=== PATIENT | male | born 1965 | race Caucasian/White ===

== ENCOUNTER 2016-09-28 16:31 | Inpatient (IN) | payer OTHER ==
[~2016-09-28] VITALS: Ht 188 cm; Wt 99.8 kg
[~2016-09-28 16:31] MED LIST: GELATIN 12 MM/7 MM FOAM I-ARTERIAL ONE; LACTATED RINGER'S 1000 ML INJ 1,000 ML IV ONE; NORMOSOL R INJ 2,000 ML IV ONE; PHENYLEPHRINE HCL 10 MG/ML VIAL IV ONE; PROPOFOL 200 MG/20 ML AMP IV ONE; SODIUM BICARBONATE 8.4% INJ 50 MEQ/50 ML SYR IV ONE; Z.0.NO CURRENT MEDS
[2016-09-28] MEDS ORDERED: GENTAMICIN 80 MG ONE (16:35)
[2016-09-28 16:39] VITALS: O2SAT 95
[2016-09-28] MEDS ORDERED: MORPHINE SULFATE 8 MG/ML INJ ONE (16:44)
[2016-09-28 16:57] LABS: BASOPHIL % 0.4 % (0.0-2.0); EOSINOPHIL # 0.3 TH/MM3 (0-0.4); EOSINOPHIL % 3.1 % (0.0-4.0); HEMATOCRIT 49.5 % (39.0-51.0); HEMO FLAGS DIFF FINAL; LYMPH % 43.2 % (9.0-44.0); LYMPHOCYTE # 4.4 TH/MM3 (1.0-4.8); MEAN CELL VOLUME 84.4 FL (80.0-100.0); MEAN CORPUSCULAR HEMOGLOBIN 28.2 PG (27.0-34.0); MEAN CORPUSCULAR HGB CONC 33.4 % (32.0-36.0); MONO % 4.6 % (0.0-8.0); NEUT % 48.7 % (16.0-70.0); PLATELET COUNT 221 TH/MM3 (150-450); RED BLOOD COUNT 5.87 MIL/MM3 (4.50-5.90); RED CELL DISTRIBUTION WIDTH 13.8 % (11.6-17.2); WHITE BLOOD COUNT 10.2 TH/MM3 (4.0-11.0)
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
[2016-09-28 17:11] LABS: APTT (PATIENT) 21.8 SEC (24.3-30.1); I-STAT POTASSIUM 3.1 MMOL/L (3.5-4.9); PROTHROMBIN TIME - PATIENT 10.6 SEC (9.8-11.6)
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
[2016-09-28] MEDS ORDERED: SODIUM CHLOR 0.9% 1000 ML INJ 1,000 ML IV SCH (17:17)
[2016-09-28 17:20] VITALS: O2SAT 99
[2016-09-28] MEDS ORDERED: IOHEXOL 350 MG/ML 10 ML VIAL (for RAD DIAG) IVCONTRAST ONE (17:22)
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
[2016-09-28] MEDS ORDERED: CHLORHEXIDINE GLUCONATE 2 % 1 PACK (2 CLOTHS) TOP PRN (17:30)
[2016-09-28] MEDS ORDERED: MISCELLANEOUS NURSING INFORMATION XX SCH (17:30)
[2016-09-28] MEDS ORDERED: MAGNESIUM HYDROXIDE SUSP 30 ML CUP PO PRN (17:30)
[2016-09-28] MEDS ORDERED: ENALAPRILAT 1.25 MG/ML VIAL IV PRN (17:30)
[2016-09-28] MEDS ORDERED: SODIUM CHLORIDE 0.9% FLUSH 10 ML FLUSH IV FLUSH PRN (17:30)
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
[2016-09-28] MEDS ORDERED: fentaNYL CITRATE 250 MCG/5 ML AMP ONE ×2 (17:55→22:40)
[2016-09-28] MEDS ORDERED: MIDAZOLAM HCL 2 MG/2 ML VIAL ONE ×3 (17:55→22:41)
[2016-09-28] MEDS ORDERED: GENTAMICIN 80 MG PREMIX 100 ML ONE (18:44)
[2016-09-28] MEDS ORDERED: GENTAMICIN SULFATE 80 MG/2 ML VIAL ONE (18:51)
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
[2016-09-28] MEDS ORDERED: ceFAZolin 2 GM PREMIX 50 ML ONE (19:00)
[2016-09-28] MEDS ORDERED: IODIXANOL 320 MG/ML 50 ML VIAL (for RAD SPEC) I-ARTERIAL ONE (19:03)
--- NOTE | 2016-09-28 19:03 | PD.RAD ---
Post Procedure Progress Note Pre Procedure Diagnosis: (1) Pelvic fracture Post Procedure Diagnosis: (1) Pelvic fracture Procedure Date: Sep 28, 2016 Supervising Radiologist: Sami Xavier JR Proceduralist/Assist: Orquidea Alvarado RT(R), RT Td(R)() Anesthesia: Conscious Sedation Plan of Activity Patient to Unit: Other Patient Condition: Good See PACS Report for procedural detail/treatment Vascular-Arterial Procedure Procedure 1 Procedure Site: Right Leg, Abdominal Procedure(s): Angiogram, Embolization Access Access Site(s): Right Femoral Artery Closure Site(s): Right vascular closure device Findings: Pelvic angio shows active bleeding at pubic symphysis via left obturator artery branch. Successful pelvic embolization Right lower extremity angio performed due to fractures. Patent flow to foot. 3 vessel runoff. Plan to OR Jr. Duc,Sami Olson MD Sep 28, 2016 19:03
[2016-09-28 19:58] LABS: BLOOD GAS BASE EXCESS -8.1 mmol/L (-2-2); BLOOD GAS CARBOXYHEMOGLOBIN 1.1 % (0-4); BLOOD GAS HCO3 18 mmol/L (22-26); BLOOD GAS METHEMOGLOBIN 1.2 % (0-2); BLOOD GAS O2 HGB SATURATION 97 % (90-100); BLOOD GAS OXYGEN CONTENT 17.3 Vol % (12.0-20.0); BLOOD GAS PCO2 42 mmHg (38-42); BLOOD GAS PO2 205 mmHg (61-120); BLOOD GAS TOTAL HGB 12.4 G/DL (12.0-16.0); CRITICAL VALUE YES; DRAW SITE O.R. DRAW; OXYGEN DEVICE VENTILATOR; TEMP CORR TO 98.6; VENT SETTINGS O.R.
[2016-09-28 19:59] LABS: STAT YES
[2016-09-28] MEDS ORDERED: BACITRACIN TOP OINT 15 GM TUBE ONE (20:07)
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
--- NOTE | 2016-09-28 20:58 | RADRPT ---
EXAM DATE/TIME: 09/28/2016 19:54 [facility] COMPARISON: CT ABDOMEN & PELVIS W CONTRAST, September 28, 2016, 16:56. PELVIS AP ONLY, September 28, 2016, 16:24. INDICATIONS : Ex-fix pelvis. MEDICAL HISTORY : Unobtainable. SURGICAL HISTORY : Unobtainable. ENCOUNTER: Subsequent ACUITY: 1 day PAIN SCORE: Non-responsive. LOCATION: pelvis FINDINGS: Fluoroscopic images obtained in the operating room during external fixator placement documents decrea sed widening of the pubic symphysis and decreased widening of the right sacroiliac joint. CONCLUSION: There is decreased widening of the pubic symphysis following external fixator placement. Naren Bran MD on September 28, 2016 at 20:54 Board Certified Radiologist. This report was verified electronically.
--- NOTE | 2016-09-28 20:59 | RADRPT ---
EXAM DATE/TIME: 09/28/2016 19:54 [facility] COMPARISON: TIBIA/FIBULA RIGHT ( 1 VW), September 28, 2016, 16:24. INDICATIONS : Ex-fix right tib/fib. MEDICAL HISTORY : Unobtainable. SURGICAL HISTORY : Unobtainable. ENCOUNTER: Subsequent ACUITY: 1 day PAIN SCORE: Non-responsive. LOCATION: Right tibia/fibula. FINDINGS: 3 spot fluoroscopic images obtained in the operating room during a procedure documents external fixat or device in the distal tibia. The extremely comminuted proximal and mid tibia fracture remains visua lized. There is also a proximal fibular fracture. CONCLUSION: Spot fluoroscopic images, as above. Naren Bran MD on September 28, 2016 at 20:57 Board Certified Radiologist. This report was verified electronically.
[2016-09-28 21:30] VITALS: O2SAT 100
[2016-09-28] MEDS ORDERED: PROPOFOL 1000 MG/100 ML INJ 100 ML ONE (21:48)
[2016-09-28 22:00] VITALS: PULSE 92; RESP 18; TEMP 98.2; O2SAT 100
[2016-09-28] MEDS ORDERED: MIDAZOLAM HCL 5 MG/ML VIAL (1 ML) ONE (22:36)
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
[2016-09-28 22:45] VITALS: BP 112/60; PULSE 82; RESP 18; O2SAT 100
[2016-09-28 22:51] LABS: BLOOD GAS BASE EXCESS -4.2 mmol/L (-2-2); BLOOD GAS CARBOXYHEMOGLOBIN 1.3 % (0-4); BLOOD GAS HCO3 20 mmol/L (22-26); BLOOD GAS METHEMOGLOBIN 0.9 % (0-2); BLOOD GAS O2 HGB SATURATION 98 % (90-100); BLOOD GAS PCO2 34 mmHg (38-42); BLOOD GAS PO2 212 mmHg (61-120); BLOOD GAS TOTAL HGB 9.9 G/DL (12.0-16.0); TEMP CORR TO 98.6
[2016-09-28 22:52] LABS: CRITICAL VALUE NO; DRAW SITE ART LINE; FIO2 50 %; OXYGEN DEVICE VENTILATOR; STAT NO; VENT SETTINGS PRVC/AC16/500/+5PEEP
[2016-09-28] MEDS ORDERED: fentaNYL DRIP 250 ML IV PRN (23:18)
[2016-09-28] MEDS ORDERED: NOREPINEPHRINE-DEXTROSE DRIP 250 ML IV PRN (23:18)
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
[2016-09-28] MEDS ORDERED: TERBUTALINE INJ 1 MG/ML AMP SQ PRN (23:30)
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
--- NOTE | 2016-09-28 23:33 | RADRPT ---
EXAM DATE/TIME: 09/28/2016 23:00 [facility] COMPARISON: CT THORAX W CONTRAST, September 28, 2016, 16:54. INDICATIONS : Central line placement. MEDICAL HISTORY : Unobtainable. SURGICAL HISTORY : Unobtainable. ENCOUNTER: Subsequent ACUITY: 1 day PAIN SCORE: Non-responsive. LOCATION: Bilateral chest FINDINGS: A single view of the chest demonstrates the lungs to be symmetrically aerated without evidence of mas s, infiltrate or effusion. The cardiomediastinal contours are unremarkable. Osseous structures are intact. CONCLUSION: Normal examination status post intubation and a new left subclavian central line in excellent positio n. The right-sided pneumothorax seen on the chest CT is not visible on the plain film. Dereck Hou MD on September 28, 2016 at 23:31 Board Certified Radiologist. This report was verified electronically.
[2016-09-28 23:45] VITALS: BP 114/66; PULSE 84; RESP 18; O2SAT 100
[2016-09-29] VITALS (25 sets, daily range): BP systolic 86–133; BP diastolic 48–72; PULSE 69–89; RESP 14–17; TEMP 97.9–99.5; O2SAT 95–100
[2016-09-29] MEDS: fentaNYL 2,500 MCG/NS 250 ML IV PRN ×2 (00:02→15:56)
[2016-09-29 00:18] LABS: AUTOMATED NEUTROPHIL # 9.6 TH/MM3 (1.8-7.7); BASOPHIL % 0.1 % (0.0-2.0); EOSINOPHIL % 0.1 % (0.0-4.0); HEMATOCRIT 29.5 % (39.0-51.0); HEMO FLAGS DIFF FINAL; LYMPH % 8.8 % (9.0-44.0); MEAN CELL VOLUME 86.9 FL (80.0-100.0); MEAN CORPUSCULAR HGB CONC 34.5 % (32.0-36.0); MONO % 9.6 % (0.0-8.0); NEUT % 81.4 % (16.0-70.0); PLATELET COUNT 137 TH/MM3 (150-450); RED CELL DISTRIBUTION WIDTH 14.6 % (11.6-17.2); WHITE BLOOD COUNT 11.8 TH/MM3 (4.0-11.0)
[2016-09-29 00:38] LABS: BICARBONATE 24.4 MEQ/L (21.0-32.0); CALCIUM-PROTEIN CORRECTED 7.7 MG/DL (8.5-10.1); POTASSIUM 4.1 MEQ/L (3.5-5.1); TOTAL BILIRUBIN ADULT 0.5 MG/DL (0.2-1.0)
[2016-09-29 00:41] LABS: APTT (PATIENT) 25.7 SEC (24.3-30.1); INTERNATIONAL NORMALIZED RATIO 1.1 RATIO; PROTHROMBIN TIME - PATIENT 12.3 SEC (9.8-11.6)
[2016-09-29] MEDS ORDERED: SODIUM CHLOR 0.9% 1000 ML INJ 1,000 ML IV ONE ×2 (01:45)
[2016-09-29 02:21] LABS: HEMATOCRIT 31.2 % (39.0-51.0); REVIEW FLAG FINAL
[2016-09-29] MEDS: ceFAZolin 2 GM PREMIX 50 ML IV SCH ×3 (03:32→21:01)
[2016-09-29] MEDS: CHLORHEXIDINE GLUCONATE 2 % 1 PACK (2 CLOTHS) TOP SCH (04:00)
[2016-09-29] MEDS: GENTAMICIN 80 MG PREMIX 100 ML IV SCH ×3 (04:55→21:01)
[2016-09-29] MEDS: NOREPINEPHRINE 4 MG/D5W 250 ML IV PRN ×2 (04:56→13:27)
--- NOTE | 2016-09-29 06:08 | RADRPT ---
EXAM DATE/TIME: 09/29/2016 04:45 [facility] COMPARISON: CHEST SINGLE AP, September 28, 2016, 23:00. INDICATIONS : Pneumothorax. MEDICAL HISTORY : Unobtainable. SURGICAL HISTORY : Unobtainable. ENCOUNTER: Subsequent ACUITY: 2 days PAIN SCORE: Non-responsive. LOCATION: Bilateral chest FINDINGS: A single view of the chest demonstrates the lungs to be symmetrically aerated without evidence of mas s, infiltrate or effusion. The endotracheal tube and left subclavian central line in excellent positi on The cardiomediastinal contours are unremarkable. Osseous structures are intact. CONCLUSION: Endotracheal tube and left subclavian central line are in good position. Lungs are grossly clear. Dereck Hou MD on September 29, 2016 at 6:06 Board Certified Radiologist. This report was verified electronically.
[2016-09-29] MEDS: SODIUM CHLOR 0.9% 1000 ML INJ 1,000 ML IV SCH ×2 (06:15→07:15)
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
[2016-09-29] MEDS ORDERED: POTASSIUM CHLOR 40 MEQ PREMIX 100 ML IV PRN (07:15)
[2016-09-29] MEDS ORDERED: RESP: ALBUTEROL 2.5 MG/IPRATROPIUM 0.5 MG NEB (PRN) NEB (07:15)
[2016-09-29] MEDS ORDERED: POTASSIUM PHOSPHATE MONOBASIC 500 MG TAB PO PRN (07:15)
[2016-09-29] MEDS ORDERED: POTASSIUM CHLORIDE 25 MEQ EFFERVESCENT TAB PO PRN (07:15)
[2016-09-29] MEDS ORDERED: POTASSIUM CHLOR 20 MEQ PREMIX 100 ML IV PRN (07:15)
[2016-09-29] MEDS ORDERED: POTASSIUM PHOSPHATE INJ 30 MMOL in SODIUM CHLOR 0.9% 250 ML INJ 250 ML IV PRN (07:15)
[2016-09-29] MEDS ORDERED: MAGNESIUM OXIDE 400 MG TAB PO PRN (07:15)
[2016-09-29] MEDS ORDERED: POTASSIUM PHOSPHATE MONOBASIC 500 MG TAB PO/TUBE PRN (07:15)
[2016-09-29] MEDS ORDERED: MAGNESIUM SULFATE INJ 2 GM in SODIUM CHLORIDE 0.9% INJ 96 ML IV PRN (07:15)
[2016-09-29] MEDS ORDERED: MAGNESIUM SULFATE INJ 4 GM in SODIUM CHLORIDE 0.9% INJ 92 ML IV PRN (07:15)
[2016-09-29] MEDS ORDERED: SODIUM PHOSPHATE INJ 30 MMOL in SODIUM CHLOR 0.9% 250 ML INJ 240 ML IV PRN (07:15)
[2016-09-29 07:29] LABS: LACTIC ACID GHOST NOT REPORTABLE
[2016-09-29] MEDS: DOCUSATE SODIUM 50 MG/SENNA 8.6 MG TAB PO SCH ×2 (09:00→21:01)
[2016-09-29 09:28] LABS: AUTOMATED NEUTROPHIL # 5.1 TH/MM3 (1.8-7.7); BASOPHIL % 0.1 % (0.0-2.0); EOSINOPHIL % 0.1 % (0.0-4.0); HEMATOCRIT 23.1 % (39.0-51.0); HEMO FLAGS DIFF FINAL; LYMPH % 19.8 % (9.0-44.0); LYMPHOCYTE # 1.5 TH/MM3 (1.0-4.8); MEAN CELL VOLUME 86.5 FL (80.0-100.0); MEAN CORPUSCULAR HEMOGLOBIN 30.1 PG (27.0-34.0); MEAN CORPUSCULAR HGB CONC 34.8 % (32.0-36.0); MONO % 10.9 % (0.0-8.0); NEUT % 69.1 % (16.0-70.0); PLATELET COUNT 115 TH/MM3 (150-450); RED BLOOD COUNT 2.67 MIL/MM3 (4.50-5.90); RED CELL DISTRIBUTION WIDTH 14.3 % (11.6-17.2); WHITE BLOOD COUNT 7.4 TH/MM3 (4.0-11.0)
[2016-09-29] MEDS ORDERED: ALBUMIN HUMAN 5% 25 GM/500 ML BOTTLE IV ONE (09:45)
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
[2016-09-29] MEDS: CHLORHEXIDINE 0.12% (ORAL KIT) 15 ML CUP MT SCH ×2 (11:31→20:00)
[2016-09-29] MEDS: RESP: ALBUTEROL 2.5 MG/IPRATROPIUM 0.5 MG NEB (SCH) NEB ×3 (12:43→21:04)
--- NOTE | 2016-09-29 13:33 | PD.ORT.PN ---
Subjective Subjective Remarks POD 1 s/p EXfix application of right tibia/femur/pelvis and vac application right tibia intubated/sedated. Objective Vitals Vital Signs Date Time Temp Pulse Resp B/P (MAP) Pulse Ox O2 Delivery O2 Flow Rate FiO2 09/29/16 13:27 73 111/52 09/29/16 12:46 99 40 09/29/16 12:00 97.9 73 16 100 116/52 (73) 09/29/16 08:02 95 40 09/29/16 07:15 69 16 99/48 (65) 100 118/72 (87) 09/29/16 07:00 95 Mechanical Ventilator 40 09/29/16 06:00 69 09/29/16 04:56 76 99/52 09/29/16 04:02 100 40 09/29/16 04:00 70 09/29/16 01:45 84 16 86/56 (66) 100 09/29/16 01:04 100 40 09/29/16 00:45 98.5 88 17 119/71 (87) 100 09/29/16 00:02 82 92/50 09/29/16 00:00 98.5 88 17 119/71 (87) 100 118/72 (87) 09/28/16 23:45 84 18 114/66 (82) 100 09/28/16 22:45 82 18 112/60 (77) 100 09/28/16 22:00 92 09/28/16 22:00 98.2 92 18 100 09/28/16 21:30 100 50 09/28/16 17:20 99 15.00 09/28/16 17:20 99 Non-Rebreather 15.00 09/28/16 16:39 95 Nasal Cannula 4.00 09/28/16 16:39 95 4.00 I/O 09/28/16 09/28/16 09/28/16 09/29/16 09/29/16 09/29/16 06:59 14:59 22:59 06:59 14:59 22:59 Intake Total 3000 ml 6338 ml 2550 ml Output Total 400 ml 1100 ml Balance 2600 ml 5238 ml 2550 ml Intake IV Total 6338 ml 2550 ml Other 3000 ml Output Urine Total 750 ml Drainage Total 350 ml Estimated Blood Loss 400 ml # Bowel Movements 0 Result Diagram: 09/29/16 0845 09/28/16 2245 Other Results Laboratory Tests Test 09/28/16 16:34 09/28/16 22:45 Prothromb Time International Ratio 1.0 RATIO 1.1 RATIO Prothrombin Time 10.6 SEC (9.8-11.6) 12.3 SEC (9.8-11.6) Imaging Last 24 hours Impressions Chest X-Ray 09/29/16 0000 Signed Impressions: Service Date/Time: Thursday, September 29, 2016 04:45 - CONCLUSION: Endotracheal tube and left subclavian central line are in good position. Lungs are grossly clear. Dereck Hou MD Pelvis X-Ray 09/28/16 163 Signed Impressions: Service Date/Time: September 16:24 - CONCLUSION: Diastasis symphysis pubis. Aleksandra Amin MD Maxillofacial CT [id number] Signed Impressions: Service Date/Time: September 16:50 - CONCLUSION: Extensive fractures with complete dislocation of the left mandibular condyle displaced medial to mandibular body in addition to complex fractures of multiple bones. Aleksandra Amin MD Head CT 09/28/16 163 Signed Impressions: Service Date/Time: September 16:47 - CONCLUSION: There is no evidence of any significant hemorrhage or mass effect. Aleksandra Amin MD Chest X-Ray 09/28/16 163 Signed Impressions: Service Date/Time: September 16:24 - CONCLUSION: No acute cardiopulmonary disease. Aleksandra Amin MD Chest CT [id number] Signed Impressions: Service Date/Time: September 16:54 - CONCLUSION: Small right anterior pneumothorax. Aleksandra Amin MD Cervical Spine CT 09/28/16 163 Signed Impressions: Service Date/Time: September 16:50 - CONCLUSION: Neural foramina compromise right C2-C3, right C3-C4, left C4-5, bilateral C5-C6 left C6-C7 and lateral recess compromise right C3-C4, left C4-5, right C5-C6. No thecal sac stenosis or fracture. Aleksandra Amin MD Abdomen/Pelvis CT 09/28/16 4759 Signed Impressions: Service Date/Time: September 16:56 - CONCLUSION: 1. Extraperitoneal hematoma behind the symphysis pubi and anterior to them. 2. Small right anterior pneumothorax. 3. Bilateral renal stones. Aleksandra Amin MD Objective Remarks RLE: +exfix. proximal pin sites with bloody drainage. remaining sites clean. + vac. good seal. running appropriately. Pelvis: +exfix. pin sites clean. Assessment & Plan Assessment and Plan POD 1 s/p exfix right femur/tibia/pelvis 1) Right Femoral Shaft Fx 2) Right Proximal Tibia Fracture 3) Disruption of Pubic Symphysis -pin care BID -npo after MN sunday -will plan for OR mon/tu depending on patients condition Lloyd Rust Sep 29, 2016 13:33
[2016-09-29] MEDS: LACTATED RINGER'S 1000 ML INJ 1,000 ML IV SCH (14:00)
--- NOTE | 2016-09-29 14:24 | RADRPT ---
EXAM DATE/TIME: 09/29/2016 13:44 [place] COMPARISON: CHEST SINGLE AP, September 29, 2016, 4:45. INDICATIONS : Respiratory status, lowered sat. MEDICAL HISTORY : unobtainable SURGICAL HISTORY : unobtainable ENCOUNTER: Subsequent ACUITY: 2 days PAIN SCORE: Non-responsive. LOCATION: Bilateral upper chest FINDINGS: Portable AP view of the chest demonstrates a normal-sized cardiac silhouette. Endotracheal tube tip i s at the clavicular head level a nasogastric tube courses beyond the GE junction. Left subclavian barrett tral line distal tip is in the SVC. Multiple EKG lines overlie the patient. Lungs are underinflated a nd there is opacity at the left lung base. No pleural effusion or pneumothorax is visualized. CONCLUSION: There is new atelectasis versus consolidation the left lung base. Otherwise, no significant change. Naren Bran MD on September 29, 2016 at 14:22 Board Certified Radiologist. This report was verified electronically.
[2016-09-29 14:53] LABS: BLOOD GAS BASE EXCESS -3.4 mmol/L (-2-2); BLOOD GAS CARBOXYHEMOGLOBIN 1.5 % (0-4); BLOOD GAS HCO3 21 mmol/L (22-26); BLOOD GAS METHEMOGLOBIN 1.2 % (0-2); BLOOD GAS O2 HGB SATURATION 97 % (90-100); BLOOD GAS PCO2 41 mmHg (38-42); BLOOD GAS PO2 237 mmHg (61-120); BLOOD GAS TOTAL HGB 6.9 G/DL (12.0-16.0); CRITICAL VALUE YES; OXYGEN DEVICE VENTILATOR; TEMP CORR TO 98.6
[2016-09-29 14:54] LABS: DRAW SITE ART LINE; FIO2 40 %; STAT NO
[2016-09-29] MEDS: MIDAZOLAM 100 MG/NS 100 ML DRIP Premix IV PRN (15:55)
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
--- NOTE | 2016-09-29 16:59 | RADRPT ---
EXAM DATE/TIME: 09/28/2016 17:50 [facility] COMPARISON: ANGIOGRAM, RIGHT LEG, September 28, 2016, 17:50. CT ABDOMEN & PELVIS W CONTRAST, September 28, 2016, 16:56 . INDICATIONS : Trauma patient in need of pelvic angiogram with possible interventions. Acute hemorrhage seen on CT. Pelvic fracture. MEDICAL HISTORY : Unobtainable SURGICAL HISTORY : Unobtainable ENCOUNTER: Initial ACUITY: 1 day PAIN SCORE: Nonresponsive. FLUORO TIME: 11.0 minutes IMAGE SERIES: ACCESS SITE: Right Femoral artery SEDATION TIME: 30 minutes CONTRAST: 1.) 100 cc Visipaque (iodixanol) MEDICATION(S): 1.) 2 mg midazolam (Versed) IV 2.) 200 mcg fentanyl (Sublimaze) IV DEVICE(S): 1.) Right Anterior devision of internal iliac artery Gelfoam 2.) Left Obturator artery Gelfoam 3.) Right common femoral artery 6F Angio-Seal PROCEDURE : 1. Ultrasound-guided puncture of the access site. 2. Angiography of the access site prior to closure device. 3. Conscious sedation with continuous EKG and Oximetry monitoring. 4. Percutaneous closure of the access site. 5. Angiography of the left internal iliac artery 6. Angiography of the left obturator artery 7. Embolization of the left obturator artery 8. Angiography of the right internal iliac artery 9. Embolization of an obturator branch of the right internal iliac artery anterior division 10. Right lower extremity angiogram The risks, benefits and alternatives to the procedure were explained and verbal and written consent w as obtained. The site was prepped in sterile fashion. Full sterile technique was used, including ca p, mask, sterile gloves and gown and a large sterile sheet. Hand hygiene and 2% chlorhexidine and/or betadine/alcohol prep was utilized per protocol for cutaneous antisepsis. The skin and subcutaneous tissues were infiltrated with local anesthetic solution. With ultrasound and fluoroscopic guidance the right common femoral artery was punctured and a vascula r sheath was placed. Angiography of the common femoral artery was performed for evaluation prior to percutaneous closure device placement. The left internal iliac artery was selected and angiography performed. No active source of hemorrhage identified on these images. The left anterior division was then selected and angiography performed h igh lighting an acute hemorrhage arising from the obturator branch. The left obturator artery was reddy ected and Gelfoam embolization performed with cessation of hemorrhage. A followup angiogram shows no residual hemorrhage. The catheter was then utilized to select the right internal iliac artery. No act corazon source of hemorrhage observe. The obturator branch of the anterior division of the internal iliac artery on the right was then selected and empirically embolized. Gelfoam was utilized. A followup an giogram shows no active hemorrhage. Attention was then turned to the right lower extremity. The right lower extremity was evaluated due t o the multiple fractures. Patent inflow, a low, and runoff is observed. Three-vessel runoff to the fo ot noted. Hemostasis was obtained with the prescribed medicated closure device. Conscious sedation was perform ed with the prescribed dosages and duration as above in the presence of an independent trained radiol ogy nurse to assist in the monitoring of the patient. EKG and oximetry remained stable throughout th e procedure. CONCLUSION: 1. Acute active hemorrhage arising from the left obturator artery. Successful embolization of both ob turator arteries with no further hemorrhage appreciated. 2. Right lower extremity angiography performed secondary to the multiple leg fractures. Patent outflo w and runoff. No dissection or occlusion. Sami Xavier Jr., MD on September 29, 2016 at 16:49 Board Certified Radiologist. This report was verified electronically.
[2016-09-29] MEDS: PANTOPRAZOLE SODIUM 40 MG VIAL IVP SCH ×2 (21:01→21:03)
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
[2016-09-30] VITALS (21 sets, daily range): BP systolic 113–125; BP diastolic 48–62; PULSE 74–82; RESP 14; TEMP 98.8–99.9; O2SAT 99–100
[2016-09-30] MEDS: LACTATED RINGER'S 1000 ML INJ 1,000 ML IV SCH ×2 (03:00→11:12)
[2016-09-30] MEDS: ceFAZolin 2 GM PREMIX 50 ML IV SCH ×3 (03:19→20:14)
[2016-09-30] MEDS: NOREPINEPHRINE 4 MG/D5W 250 ML IV PRN ×2 (03:19→07:47)
[2016-09-30] MEDS: GENTAMICIN 80 MG PREMIX 100 ML IV SCH ×3 (03:20→20:14)
[2016-09-30] MEDS: CHLORHEXIDINE GLUCONATE 2 % 1 PACK (2 CLOTHS) TOP SCH (04:00)
[2016-09-30] MEDS: RESP: ALBUTEROL 2.5 MG/IPRATROPIUM 0.5 MG NEB (SCH) NEB ×4 (04:05→19:50)
[2016-09-30 04:52] LABS: BLOOD GAS BASE EXCESS -1.7 mmol/L (-2-2); BLOOD GAS CARBOXYHEMOGLOBIN 1.5 % (0-4); BLOOD GAS HCO3 23 mmol/L (22-26); BLOOD GAS METHEMOGLOBIN 0.9 % (0-2); BLOOD GAS O2 HGB SATURATION 97 % (90-100); BLOOD GAS OXYGEN CONTENT 9.8 Vol % (12.0-20.0); BLOOD GAS PCO2 40 mmHg (38-42); BLOOD GAS PO2 134 mmHg (61-120); CRITICAL VALUE NO; OXYGEN DEVICE VENTILATOR; TEMP CORR TO 98.6
[2016-09-30 04:53] LABS: DRAW SITE ART LINE; FIO2 40 %; STAT NO; VENT SETTINGS PRVC/AC
[2016-09-30 05:17] LABS: AUTOMATED NEUTROPHIL # 4.2 TH/MM3 (1.8-7.7); BASOPHIL % 0.5 % (0.0-2.0); EOSINOPHIL # 0.1 TH/MM3 (0-0.4); EOSINOPHIL % 1.7 % (0.0-4.0); LYMPH % 22.2 % (9.0-44.0); LYMPHOCYTE # 1.4 TH/MM3 (1.0-4.8); MEAN CELL VOLUME 85.8 FL (80.0-100.0); MEAN CORPUSCULAR HEMOGLOBIN 28.8 PG (27.0-34.0); MEAN CORPUSCULAR HGB CONC 33.6 % (32.0-36.0); MONO % 8.7 % (0.0-8.0); NEUT % 66.9 % (16.0-70.0); PLATELET COUNT 77 TH/MM3 (150-450); RED BLOOD COUNT 2.44 MIL/MM3 (4.50-5.90); RED CELL DISTRIBUTION WIDTH 14.9 % (11.6-17.2); WHITE BLOOD COUNT 6.3 TH/MM3 (4.0-11.0)
[2016-09-30 05:23] LABS: HEMO FLAGS AUTO DIFF
[2016-09-30 05:26] LABS: BICARBONATE 25.3 MEQ/L (21.0-32.0); CALCIUM-PROTEIN CORRECTED 7.5 MG/DL (8.5-10.1); MAGNESIUM 1.6 MG/DL (1.5-2.5); POTASSIUM 3.8 MEQ/L (3.5-5.1); TOTAL BILIRUBIN ADULT 0.4 MG/DL (0.2-1.0)
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
[2016-09-30] MEDS: fentaNYL 2,500 MCG/NS 250 ML IV PRN (06:16)
[2016-09-30 07:04] LABS: BANDS 10 % (0-6); EOSINOPHILS 2 % (0-4); NEUTROPHIL # MANUAL DIFF 4.5 TH/MM3 (1.8-7.7); POLYS (SEG NEUTROPHILS) 61 % (16-70); WBC DIFF SAMPLE 100
[2016-09-30 07:05] LABS: OVALOCYTES 1+ (NORMAL); PLATELET ESTIMATE SMEAR LOW (NORMAL); PLATELET MORPHOLOGY NORMAL (NORMAL); SCAN/DIFF FINAL DIFF MANUAL
[2016-09-30] MEDS: CHLORHEXIDINE 0.12% (ORAL KIT) 15 ML CUP MT SCH ×2 (07:47→20:09)
[2016-09-30] MEDS: DOCUSATE SODIUM 50 MG/SENNA 8.6 MG TAB PO SCH ×2 (07:47→20:08)
[2016-09-30] MEDS: MIDAZOLAM 100 MG/NS 100 ML DRIP Premix IV PRN (07:48)
--- NOTE | 2016-09-30 08:17 | PD.ORT.PN ---
Subjective Subjective Remarks Patient in ISC. Patient intubated. Nurse at the bedside Objective Vitals Vital Signs Date Time Temp Pulse Resp B/P (MAP) Pulse Ox O2 Delivery O2 Flow Rate FiO2 09/30/16 08:03 99.9 80 14 114/48 100 09/30/16 07:47 81 123/50 09/30/16 07:15 99.9 82 14 125/51 (75) 100 09/30/16 07:00 100 Mechanical Ventilator 40 09/30/16 06:49 99.8 76 14 113/51 100 09/30/16 06:33 99.5 78 14 114/50 100 09/30/16 06:00 78 09/30/16 04:05 100 40 09/30/16 04:00 80 09/30/16 03:19 79 106/49 09/30/16 02:00 80 09/30/16 01:05 100 40 09/30/16 00:00 81 09/29/16 22:00 82 09/29/16 21:04 100 40 09/29/16 20:00 87 09/29/16 19:15 99.5 87 16 120/51 (74) 100 09/29/16 19:00 100 Mechanical Ventilator 40 09/29/16 18:55 98.8 86 14 128/57 100 09/29/16 18:39 98.9 89 14 117/55 100 09/29/16 18:00 81 09/29/16 17:40 98.9 86 14 125/56 100 09/29/16 17:19 99.0 87 14 133/60 100 09/29/16 16:35 100 40 09/29/16 16:00 84 09/29/16 14:00 79 09/29/16 13:27 73 111/52 09/29/16 13:00 40 09/29/16 12:46 99 40 09/29/16 12:00 71 09/29/16 12:00 97.9 73 16 100 116/52 (73) 09/29/16 10:00 70 I/O 09/29/16 09/29/16 09/29/16 09/30/16 09/30/16 09/30/16 07:00 15:00 23:00 07:00 15:00 23:00 Intake Total 6338 ml 2550 ml 500 ml 1620 ml 250 ml Output Total 1100 ml 875 ml 900 ml Balance 5238 ml 2550 ml -375 ml 720 ml 250 ml Intake IV Total 6338 ml 2550 ml 1620 ml Packed Cells 500 ml 250 ml Output Urine Total 750 ml 625 ml 750 ml Gastric Drainage Total 125 ml 0 ml Drainage Total 350 ml 125 ml 150 ml # Bowel Movements 0 0 Result Diagram: 09/30/16 0420 09/30/16 0420 Imaging Last 24 hours Impressions Chest X-Ray 09/29/16 0000 Signed Impressions: Service Date/Time: Thursday, September 29, 2016 04:45 - CONCLUSION: Endotracheal tube and left subclavian central line are in good position. Lungs are grossly clear. Dereck Hou MD Pelvis X-Ray 09/28/161638 Signed Impressions: Service Date/Time: September 16:24 - CONCLUSION: Diastasis symphysis pubis. Aleksandra Amin MD Maxillofacial CT 09/28/16 163 Signed Impressions: Service Date/Time: September 16:50 - CONCLUSION: Extensive fractures with complete dislocation of the left mandibular condyle displaced medial to mandibular body in addition to complex fractures of multiple bones. Aleksandra Amin MD Head CT 09/28/16 163 Signed Impressions: Service Date/Time: September 16:47 - CONCLUSION: There is no evidence of any significant hemorrhage or mass effect. Aleksandra Amin MD Chest X-Ray 09/28/16 163 Signed Impressions: Service Date/Time: September 16:24 - CONCLUSION: No acute cardiopulmonary disease. Aleksandra Amin MD Chest CT 09/28/16 163 Signed Impressions: Service Date/Time: September 16:54 - CONCLUSION: Small right anterior pneumothorax. Aleksandra Amin MD Cervical Spine CT 09/28/161638 Signed Impressions: Service Date/Time: September 16:50 - CONCLUSION: Neural foramina compromise right C2-C3, right C3-C4, left C4-5, bilateral C5-C6 left C6-C7 and lateral recess compromise right C3-C4, left C4-5, right C5-C6. No thecal sac stenosis or fracture. Aleksandra Amin MD Abdomen/Pelvis CT 09/28/16 1639 Signed Impressions: Service Date/Time: September 16:56 - CONCLUSION: 1. Extraperitoneal hematoma behind the symphysis pubi and anterior to them. 2. Small right anterior pneumothorax. 3. Bilateral renal stones. Aleksandra Amin MD Objective Remarks RLE: +exfix. proximal pin sites with bloody drainage. remaining sites clean. + vac. good seal. running appropriately. Pelvis: +exfix. pin sites clean. LLE: Mild swelling of ankle. No instability. No crepitus. No effusion of the left knee. RUE: No abnormal swelling of the wrist or elbow. Abrasion of the right shoulder. LUE: No abnormal swelling of the wrist or elbow. No swelling of the shoulder Assessment & Plan Ortho Post Op Day #: 2 Problem List: Assessment and Plan POD 2 s/p exfix right femur/tibia/pelvis 1) Right Femoral Shaft Fx 2) Right Proximal Tibia Fracture 3) Disruption of Pubic Symphysis PLAN: -pin care BID -npo after MN sunday -will plan for OR sun/ depending on patients condition Patient getting transfusion for hemoglobin 7. CT of right leg scheduled for today. No dressing change. Will defer to trauma/general surgery with regard to anticoagulation. Ap Yeung MD Sep 30, 2016 08:17
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
[2016-09-30] MEDS ORDERED: PHENYLEPH/NS 1000 MCG/10 ML SYR IV ONE (09:07)
[2016-09-30] MEDS ORDERED: ePHEDrine/NS 25 MG/5 ML SYR IV ONE (09:07)
[2016-09-30] MEDS ORDERED: LACTATED RINGER'S 1000 ML INJ 2,000 ML IV ONE (09:07)
[2016-09-30] MEDS ORDERED: NORMOSOL R INJ 1,000 ML IV ONE (09:07)
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
[2016-09-30] MEDS ORDERED: CHLORHEXIDINE GLUCONATE 0.12% 15 ML CUP ONE ×4 (12:47→14:27)
[2016-09-30 12:48] LABS: HEMATOCRIT 23.4 % (39.0-51.0)
[2016-09-30] MEDS ORDERED: LIDOCAINE 2%/EPINEPHrine PF 1:200,000 20ML SDV ONE (12:48)
[2016-09-30 12:51] LABS: REVIEW FLAG FINAL
[2016-09-30] MEDS ORDERED: MICROFIBRILLAR COLLAGEN HEMOSTAT 1 GM PKT ONE (12:58)
--- NOTE | 2016-09-30 13:00 | RADRPT ---
EXAM DATE/TIME: 09/28/2016 16:50 [facility] COMPARISON: CT FACIAL BONES W/O CONTRAST, September 28, 2016, 16:50. INDICATIONS : 3D requested for surgery by physician. ; Reconstructed from previous dataset, no dose MEDICAL HISTORY : Non-responsive. SURGICAL HISTORY : Non-responsive. ENCOUNTER: Initial ACUITY: 3 days PAIN SCALE: Non-responsive LOCATION: facial TECHNIQUE: 3D reconstructions of the facial bones were performed. DICOM format image data is available [facility] for review and comparison. FINDINGS: The dataset from the CT of the face done 2 days ago was reconstructed with 3-D surface rendering. Com minuted and displaced fractures again seen in the mandible, including the right condyle, the right tutu dy and the left condyle and ramus. Left condylar fragment is anteriorly and medially dislocated. Comminuted but only mildly displaced fracturing seen of both sides of the maxilla and also the pteryg oid plates. CONCLUSION: 3-D surface rendering of the multifocal, comminuted fracturing of the mandible and maxilla. There is fracture/dislocation of the left mandibular condyle. Naren Baptiste MD on September 30, 2016 at 12:54 Board Certified Radiologist. This report was verified electronically.
[2016-09-30 13:05] LABS: MEAN CELL VOLUME 87.1 FL (80.0-100.0); MEAN CORPUSCULAR HEMOGLOBIN 29.2 PG (27.0-34.0); MEAN CORPUSCULAR HGB CONC 33.5 % (32.0-36.0); PLATELET COUNT 80 TH/MM3 (150-450); RED BLOOD COUNT 2.73 MIL/MM3 (4.50-5.90); RED CELL DISTRIBUTION WIDTH 15.1 % (11.6-17.2); WHITE BLOOD COUNT 6.6 TH/MM3 (4.0-11.0)
[2016-09-30 13:06] LABS: HEMATOCRIT 23.4 % (39.0-51.0); REVIEW FLAG FINAL
[2016-09-30] MEDS ORDERED: BUMETANIDE INJ 1 MG/4 ML VIAL IV PUSH ONE (13:30)
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
[2016-09-30] MEDS ORDERED: methylPREDNISolone SOD SUCC 125 MG/2 ML VIAL ONE (17:53)
[2016-09-30] MEDS: methylPREDNISolone SOD SUCC 125 MG/2 ML VIAL IV SCH (18:00)
[2016-09-30 18:08] LABS: BLOOD GAS BASE EXCESS -1.1 mmol/L (-2-2); BLOOD GAS CARBOXYHEMOGLOBIN 2.2 % (0-4); BLOOD GAS HCO3 23 mmol/L (22-26); BLOOD GAS METHEMOGLOBIN 1.1 % (0-2); BLOOD GAS O2 HGB SATURATION 95 % (90-100); BLOOD GAS OXYGEN CONTENT 11.5 Vol % (12.0-20.0); BLOOD GAS PCO2 36 mmHg (38-42); BLOOD GAS PO2 89 mmHg (61-120); BLOOD GAS TOTAL HGB 8.6 G/DL (12.0-16.0); CRITICAL VALUE NO; DRAW SITE ART LINE; FIO2 50 %; OXYGEN DEVICE VENTILATOR; STAT YES; TEMP CORR TO 98.6; ULNAR PULSE PRESENT; VENT SETTINGS OR
--- NOTE | 2016-09-30 18:42 | RADRPT ---
EXAM DATE/TIME: 09/30/2016 17:44 [facility] COMPARISON: No previous studies available for comparison. INDICATIONS : NG tube placement. MEDICAL HISTORY : None. SURGICAL HISTORY : None. ENCOUNTER: Initial ACUITY: 1 day PAIN SCORE: Non-responsive. LOCATION: Bilateral abdomen. FINDINGS: No visualized NG tube. The lung bases are clear. Examination of the abdomen demonstrates a normal bowel gas pattern. No jackeline e air is identified. No organomegaly is evident. Osseous structures are intact. CONCLUSION: No evidence of obstruction.No visualized NG tube. Gina Corrales MD on September 30, 2016 at 18:39 Board Certified Radiologist. This report was verified electronically.
--- NOTE | 2016-09-30 18:43 | RADRPT ---
EXAM DATE/TIME: 09/30/2016 17:44 [facility] COMPARISON: ABDOMEN SINGLE VIEW, September 30, 2016, 17:44. INDICATIONS : NG tube repositioning. MEDICAL HISTORY : None. SURGICAL HISTORY : None. ENCOUNTER: Initial ACUITY: 1 day PAIN SCORE: Non-responsive. LOCATION: Bilateral abdomen. FINDINGS: NG tube identified with the proximal port overlying the left upper quadrant consistent with appropria te positioning. The lung bases are grossly clear. Nonobstructive bowel gas pattern. CONCLUSION: NG tube appropriate in position. Gina Corrales MD on September 30, 2016 at 18:41 Board Certified Radiologist. This report was verified electronically.
--- NOTE | 2016-09-30 18:58 | EKG ---
Date Performed: 09/29/2016 Time Performed: 01:52:42 PTAGE: 51 years EKG: Sinus rhythm . Normal ECG NO PREVIOUS TRACING DOCTOR: Wojciech Adler Interpretating Date/Time 09/30/2016 18:57:07
[2016-09-30] MEDS ORDERED: MIDAZOLAM HCL 2 MG/2 ML VIAL ONE (19:27)
[2016-09-30] MEDS ORDERED: fentaNYL CITRATE 250 MCG/5 ML AMP ONE (19:27)
[2016-09-30] MEDS ORDERED: MORPHINE SULFATE 4 MG/ML INJ ONE (19:28)
--- NOTE | 2016-09-30 19:49 | HHI.PR ---
Immediate Post Op Note Procedure Date: Sep 30, 2016 Pre Op Diagnosis: right mandible body fracture b/l condyle fracture- right subcondylar/left condylar head fx, left coronoid process fracture maxillary alveolus fracture - loose teeth 7,8,9,10,11,12, complex right lower lip laceration 2cm complex right chin laceration 6cm right neck laceration 6cm Post Op Diagnosis: erick Surgeon: Richie Webb Director Of Group Counseling Program(s): jose m monteiro, steven scott foschee, Procedure: ORIF right mandible body fracture CR b/l condyle fracture closure of lip. chin and neck lacerations stabilization of maxillary alveolus fracture Findings: complex, comminuted mandible body fracture intraoral soft tissue very friable right mandible Complications: none Estimated blood loss: 200cc Anesthesia: General, Local (2%lidocaine with 1:100,000 epi 10cc) Drains: None Patient to: ISC Patient Condition: Critical Implant/Devices: SEE IMPLANT LOG (if applicable) Date/Time of Procedure: SEE SURGICAL CARE RECORD Richie Webb DMD Sep 30, 2016 19:49
[2016-09-30] MEDS: PANTOPRAZOLE SODIUM 40 MG VIAL IVP SCH (20:14)
[2016-09-30] MEDS ORDERED: DO NOT ADM ANY ANTICOAGULANT DRUGS PRN (20:30)
--- NOTE | 2016-09-30 21:03 | RADRPT ---
EXAM DATE/TIME: 09/30/2016 20:24 [facility] COMPARISON: CHEST SINGLE AP, September 30, 2016, 4:29. INDICATIONS : Confirm nasal tracheal tube placement. MEDICAL HISTORY : Renal calculi. SURGICAL HISTORY : None. ENCOUNTER: Subsequent ACUITY: 3 days PAIN SCORE: Non-responsive. LOCATION: Bilateral chest FINDINGS: The tip of the tracheal tube is identified approximately 4 cm above the joseph in good position. The nasogastric tube has its tip below the diaphragm. A left subclavian central line has its tip in the superior vena cava. Small bilateral pleural effusions are noted. Mild pulmonary vascular congestio n is noted bilaterally. The heart is stable. CONCLUSION: 1. Tracheal tube has its tip 4 cm above the joseph. 2. Nasogastric tube is in good position below the diaphragm. 3. Small bilateral pleural effusions. 4. Mild pulmonary vascular congestion bilaterally. Ramón Hawkins MD on September 30, 2016 at 20:55 Board Certified Radiologist. This report was verified electronically.
[2016-10-01] VITALS (18 sets, daily range): BP systolic 100–113; BP diastolic 50–58; PULSE 51–71; RESP 14; TEMP 97.7–98.8; O2SAT 96–100
[2016-10-01] MEDS: methylPREDNISolone SOD SUCC 125 MG/2 ML VIAL IV SCH (00:33)
[2016-10-01] MEDS: fentaNYL 2,500 MCG/NS 250 ML IV PRN (01:54)
--- NOTE | 2016-10-01 03:26 | RADRPT ---
EXAM DATE/TIME: 10/01/2016 02:19 [facility] COMPARISON: CT ABDOMEN & PELVIS W/O CONTRAST, September 30, 2016, 8:37. CHEST SINGLE AP, September 30, 2016, 20:24. INDICATIONS : Shortness of breath. MEDICAL HISTORY : Renal calculi SURGICAL HISTORY : Pelvic external fixation ENCOUNTER: Subsequent ACUITY: 4 - 6 days PAIN SCORE: Non-responsive. LOCATION: Bilateral chest FINDINGS: A single view of the chest demonstrates marked lucency overlying the left lung apex may represent a m edial pneumothorax. The endotracheal tube and nasogastric are both in good position. Left subclavian central line in good position. Small right pleural effusion with at least 2 right-sided rib fractures The cardiomediastinal contours are unremarkable. CONCLUSION: Lucency in the medial left lung apex may represent an anterior medial pneumothorax. Diffuse infiltrat es of both lung bases with at least 2 right-sided rib fractures. Dereck Hou MD on October 01, 2016 at 3:23 Board Certified Radiologist. This report was verified electronically.
[2016-10-01] MEDS: RESP: ALBUTEROL 2.5 MG/IPRATROPIUM 0.5 MG NEB (SCH) NEB ×4 (03:56→19:51)
[2016-10-01] MEDS: CHLORHEXIDINE GLUCONATE 2 % 1 PACK (2 CLOTHS) TOP SCH (04:07)
[2016-10-01] MEDS: GENTAMICIN 80 MG PREMIX 100 ML IV SCH ×3 (04:07→22:40)
[2016-10-01] MEDS: ceFAZolin 2 GM PREMIX 50 ML IV SCH ×3 (04:07→20:57)
[2016-10-01 05:17] LABS: BLOOD GAS CARBOXYHEMOGLOBIN 1.5 % (0-4); BLOOD GAS HCO3 24 mmol/L (22-26); BLOOD GAS METHEMOGLOBIN 0.6 % (0-2); BLOOD GAS O2 HGB SATURATION 95 % (90-100); BLOOD GAS OXYGEN CONTENT 12.2 Vol % (12.0-20.0); BLOOD GAS PCO2 34 mmHg (38-42); BLOOD GAS PO2 81 mmHg (61-120); TEMP CORR TO 98.6
[2016-10-01 05:18] LABS: CRITICAL VALUE NO; OXYGEN DEVICE VENTILATOR
[2016-10-01 05:19] LABS: DRAW SITE ART LINE; LITER FLOW 40 L/M; STAT NO; VENT SETTINGS PRVC / AC
[2016-10-01 05:43] LABS: AUTOMATED NEUTROPHIL # 5.2 TH/MM3 (1.8-7.7); BASOPHIL % 0.1 % (0.0-2.0); HEMATOCRIT 22.8 % (39.0-51.0); HEMO FLAGS DIFF FINAL; LYMPH % 6.1 % (9.0-44.0); LYMPHOCYTE # 0.4 TH/MM3 (1.0-4.8); MEAN CELL VOLUME 85.7 FL (80.0-100.0); MEAN CORPUSCULAR HEMOGLOBIN 30.4 PG (27.0-34.0); MEAN CORPUSCULAR HGB CONC 35.4 % (32.0-36.0); MONO % 3.2 % (0.0-8.0); NEUT % 90.6 % (16.0-70.0); PLATELET COUNT 113 TH/MM3 (150-450); RED BLOOD COUNT 2.66 MIL/MM3 (4.50-5.90); RED CELL DISTRIBUTION WIDTH 14.8 % (11.6-17.2); WHITE BLOOD COUNT 5.7 TH/MM3 (4.0-11.0)
[2016-10-01] MEDS ORDERED: methylPREDNISolone ACETATE 80 MG/ML VIAL IM ONE (06:00)
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
[2016-10-01 07:01] LABS: BICARBONATE 25.4 MEQ/L (21.0-32.0); MAGNESIUM 1.8 MG/DL (1.5-2.5); POTASSIUM 3.5 MEQ/L (3.5-5.1); TOTAL BILIRUBIN ADULT 0.4 MG/DL (0.2-1.0)
[2016-10-01 07:03] LABS: CALCIUM-PROTEIN CORRECTED 7.3 MG/DL (8.5-10.1)
[2016-10-01] MEDS: CHLORHEXIDINE 0.12% (ORAL KIT) 15 ML CUP MT SCH (08:00)
--- NOTE | 2016-10-01 08:16 | PD.ORT.PN ---
Subjective Subjective Remarks Patient in ISC. Patient intubated. Nurse at the bedside Status post mandible wiring. Cervical spine collar has been removed Objective Vitals Vital Signs Date Time Temp Pulse Resp B/P (MAP) Pulse Ox O2 Delivery O2 Flow Rate FiO2 10/01/16 06:00 62 10/01/16 04:00 98.8 68 14 100/53 (69) 96 10/01/16 04:00 68 10/01/16 04:00 40 10/01/16 03:58 98 40 10/01/16 02:00 66 10/01/16 00:00 40 10/01/16 00:00 98.6 71 14 104/50 (68) 100 10/01/16 00:00 71 09/30/16 23:44 100 40 09/30/16 22:00 75 09/30/16 20:00 99.9 79 14 125/62 (83) 100 09/30/16 20:00 40 09/30/16 20:00 79 09/30/16 19:17 100 40 09/30/16 13:15 100 100 09/30/16 12:00 98.8 75 14 117/51 (73) 100 09/30/16 12:00 74 09/30/16 11:50 99 40 09/30/16 10:00 80 09/30/16 09:08 100 40 I/O 09/30/16 09/30/16 09/30/16 10/01/16 10/01/16 10/01/16 07:00 15:00 23:00 07:00 15:00 23:00 Intake Total 1620 ml 892 ml 1787 ml 529 ml Output Total 900 ml 3000 ml 1650 ml Balance 720 ml 892 ml -1213 ml -1121 ml Intake IV Total 1620 ml 1000 ml 529 ml Packed Cells 500 ml 250 ml Platelets 192 ml 387 ml Blood Product IV Normal Saline Flush 200 ml 150 ml Output Urine Total 750 ml 2600 ml 1500 ml Stool Total 0 ml Gastric Drainage Total 0 ml 100 ml 100 ml Drainage Total 150 ml 300 ml 50 ml # Bowel Movements 0 Result Diagram: 10/01/16 0513 10/01/16 0513 Imaging Last 24 hours Impressions Chest X-Ray 09/29/16 0000 Signed Impressions: Service Date/Time: Thursday, September 29, 2016 04:45 - CONCLUSION: Endotracheal tube and left subclavian central line are in good position. Lungs are grossly clear. Dereck Hou MD Pelvis X-Ray 09/28/161638 Signed Impressions: Service Date/Time: September 16:24 - CONCLUSION: Diastasis symphysis pubis. Aleksandra Amin MD Maxillofacial CT 09/28/161638 Signed Impressions: Service Date/Time: September 16:50 - CONCLUSION: Extensive fractures with complete dislocation of the left mandibular condyle displaced medial to mandibular body in addition to complex fractures of multiple bones. Aleksandra Amin MD Head CT 09/28/161638 Signed Impressions: Service Date/Time: September 16:47 - CONCLUSION: There is no evidence of any significant hemorrhage or mass effect. Aleksandra Amin MD Chest X-Ray 09/28/161638 Signed Impressions: Service Date/Time: September 16:24 - CONCLUSION: No acute cardiopulmonary disease. Aleksandra Amin MD Chest CT 09/28/161638 Signed Impressions: Service Date/Time: September 16:54 - CONCLUSION: Small right anterior pneumothorax. Aleksandra Amin MD Cervical Spine CT 09/28/161638 Signed Impressions: Service Date/Time: September 16:50 - CONCLUSION: Neural foramina compromise right C2-C3, right C3-C4, left C4-5, bilateral C5-C6 left C6-C7 and lateral recess compromise right C3-C4, left C4-5, right C5-C6. No thecal sac stenosis or fracture. Aleksandra Amin MD Abdomen/Pelvis CT 09/28/161638 Signed Impressions: Service Date/Time: September 16:56 - CONCLUSION: 1. Extraperitoneal hematoma behind the symphysis pubi and anterior to them. 2. Small right anterior pneumothorax. 3. Bilateral renal stones. Aleksandra Amin MD Objective Remarks RLE: +exfix. proximal pin sites with bloody drainage. remaining sites clean. + vac. good seal. running appropriately. Pelvis: +exfix. pin sites clean. LLE: Mild swelling of ankle. No instability. No crepitus. Painful with range of motion, patient withdraws. No effusion of the left knee. RUE: No abnormal swelling of the wrist or elbow. Abrasion of the right shoulder. LUE: No abnormal swelling of the wrist or elbow. No swelling of the shoulder Assessment & Plan Assessment and Plan POD 3 s/p exfix right femur/tibia/pelvis 1) Right Femoral Shaft Fx 2) Right Proximal Tibia Fracture 3) Disruption of Pubic Symphysis PLAN: -pin care BID -npo after MN sunday -will plan for OR mon/tu depending on patients condition Patient's hemoglobin is stable. Platelet count greater than 100 No dressing change. Will defer to trauma/general surgery with regard to anticoagulation We'll order x-ray of the left ankle because of swelling, bruising and pain. Ap Yeung MD Oct 01, 2016 08:16
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
[2016-10-01] MEDS: MIDAZOLAM 100 MG/NS 100 ML DRIP Premix IV PRN (08:48)
[2016-10-01] MEDS: DOCUSATE SODIUM 50 MG/SENNA 8.6 MG TAB PO SCH (08:48)
--- NOTE | 2016-10-01 09:03 | RADRPT ---
EXAM DATE/TIME: 10/01/2016 08:12 [facility] COMPARISON: No previous studies available for comparison. INDICATIONS : Left ankle pain. Post ASSISTED MEDICAL HISTORY : None. SURGICAL HISTORY : None. ENCOUNTER: Initial ACUITY: 3 days PAIN SCORE: Non-responsive. LOCATION: Left ankle. FINDINGS: Two view exam was performed of the left ankle. The bony structures are in normal alignment. No evid ence of fracture, dislocation, or soft tissue swelling. There is a radiopaque structure overlying the distal ankle which is anterior and external to the patient. Bony mineralization is normal. CONCLUSION: No evidence of fracture or dislocation. Gina Corrales MD on October 01, 2016 at 9:01 Board Certified Radiologist. This report was verified electronically.
[2016-10-01] MEDS ORDERED: LACTULOSE SYRUP 20 GM/30 ML CUP PO SCH (10:00)
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
[2016-10-01] MEDS ORDERED: LACTULOSE SYRUP 20 GM/30 ML CUP NG PRN (10:30)
[2016-10-01] MEDS ORDERED: DEXTROSE 50% IN WATER 50 ML VIAL(D50) IV PRN (10:30)
[2016-10-01] MEDS ORDERED: GLUCAGON 1 MG/ML VIAL OTHER PRN (10:30)
[2016-10-01] MEDS: PROPOFOL 1000 MG/100 ML INJ 100 ML IV PRN ×2 (10:42→18:25)
[2016-10-01] MEDS ORDERED: MAGNESIUM HYDROXIDE SUSP 30 ML CUP PO PRN (11:00)
[2016-10-01] MEDS: INSULIN ASPART SUPPLEMENTAL SCALE SQ SCH ×3 (11:00→23:00)
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
[2016-10-01] MEDS ORDERED: BUMETANIDE INJ 1 MG/4 ML VIAL IV PUSH ONE (11:30)
[2016-10-01] MEDS ORDERED: CALCIUM CHLORIDE INJ 1 GM in SODIUM CHLORIDE 0.9% INJ 100 ML IV ONE (12:00)
[2016-10-01] MEDS: POTASSIUM CHLORIDE 25 MEQ EFFERVESCENT TAB NG SCH ×2 (12:48→20:57)
[2016-10-01] MEDS: PANTOPRAZOLE SODIUM 40 MG VIAL IVP SCH (20:57)
[2016-10-01] MEDS: DOCUSATE SODIUM 50 MG/SENNA 8.6 MG TAB NG SCH (20:58)
[2016-10-02] VITALS (15 sets, daily range): BP systolic 101–145; BP diastolic 49–72; PULSE 47–60; RESP 10–14; TEMP 97.1–98.2; O2SAT 97–100
[2016-10-02] MEDS: CHLORHEXIDINE 0.12% (ORAL KIT) 15 ML CUP MT SCH ×3 (00:34→20:20)
--- NOTE | 2016-10-02 03:29 | RADRPT ---
EXAM DATE/TIME: 10/02/2016 02:16 [facility] COMPARISON: CHEST SINGLE AP, October 01, 2016, 2:19. INDICATIONS : Shortness of breath. MEDICAL HISTORY : Renal calculi. SURGICAL HISTORY : Pelvic external fixation. ENCOUNTER: Subsequent ACUITY: 4 - 6 days PAIN SCORE: 0/10 LOCATION: Bilateral chest FINDINGS: Portable AP view of the chest demonstrates a normal-sized cardiac silhouette. ETT, NG tube, and left subclavian central line remain present. Small bibasilar pleural-parenchymal opacities, right greater than left, are unchanged. No pneumothorax is visualized. Right rib fractures remain visualized. CONCLUSION: Stable chest x-ray with small bilateral pleural effusions with associated volume loss and/or airspace consolidation. Naren Bran MD on October 02, 2016 at 3:26 Board Certified Radiologist. This report was verified electronically.
[2016-10-02 04:43] LABS: AUTOMATED NEUTROPHIL # 6.7 TH/MM3 (1.8-7.7); HEMO FLAGS DIFF FINAL; LYMPH % 6.1 % (9.0-44.0); LYMPHOCYTE # 0.5 TH/MM3 (1.0-4.8); MEAN CELL VOLUME 86.7 FL (80.0-100.0); MEAN CORPUSCULAR HEMOGLOBIN 30.6 PG (27.0-34.0); MEAN CORPUSCULAR HGB CONC 35.3 % (32.0-36.0); MONO % 4.7 % (0.0-8.0); NEUT % 89.2 % (16.0-70.0); PLATELET COUNT 134 TH/MM3 (150-450); RED BLOOD COUNT 2.54 MIL/MM3 (4.50-5.90); RED CELL DISTRIBUTION WIDTH 14.9 % (11.6-17.2); WHITE BLOOD COUNT 7.6 TH/MM3 (4.0-11.0)
[2016-10-02 04:54] LABS: ALKALINE PHOSPHATASE 46 U/L (45-117); ALT (GPT) 44 U/L (12-78); ANION GAP 7 MEQ/L (5-15); AST (GOT) 55 U/L (15-37); BLOOD UREA NITROGEN 17 MG/DL (7-18); CHLORIDE 111 MEQ/L (98-107); GLOMERULAR FILTRATION RATE 77 ML/MIN (>89); MAGNESIUM 2.2 MG/DL (1.5-2.5); POTASSIUM 3.7 MEQ/L (3.5-5.1); SODIUM (NA) 146 MEQ/L (136-145); TOTAL BILIRUBIN ADULT 0.4 MG/DL (0.2-1.0)
[2016-10-02] MEDS: INSULIN ASPART SUPPLEMENTAL SCALE SQ SCH ×4 (05:00→23:00)
[2016-10-02] MEDS: RESP: ALBUTEROL 2.5 MG/IPRATROPIUM 0.5 MG NEB (SCH) NEB ×4 (05:07→20:05)
[2016-10-02 05:57] LABS: BLOOD GAS BASE EXCESS 2.4 mmol/L (-2-2); BLOOD GAS CARBOXYHEMOGLOBIN 1.5 % (0-4); BLOOD GAS HCO3 26 mmol/L (22-26); BLOOD GAS METHEMOGLOBIN 0.9 % (0-2); BLOOD GAS O2 HGB SATURATION 95 % (90-100); BLOOD GAS OXYGEN CONTENT 10.8 Vol % (12.0-20.0); BLOOD GAS PCO2 33 mmHg (38-42); BLOOD GAS PO2 84 mmHg (61-120); CRITICAL VALUE NO; TEMP CORR TO 98.6
[2016-10-02 05:58] LABS: DRAW SITE ALINE; FIO2 40 %; OXYGEN DEVICE VENTILATOR; STAT NO
[2016-10-02] MEDS: CHLORHEXIDINE GLUCONATE 2 % 1 PACK (2 CLOTHS) TOP SCH (06:49)
--- NOTE | 2016-10-02 07:15 | PD.ORT.PN ---
Subjective Subjective Remarks POD 4 s/p EXfix application of right tibia/femur/pelvis and vac application right tibia intubated/sedated. Objective Vitals Vital Signs Date Time Temp Pulse Resp B/P (MAP) Pulse Ox O2 Delivery O2 Flow Rate FiO2 10/02/16 06:00 57 10/02/16 05:07 98 40 10/02/16 04:00 51 10/02/16 04:00 40 10/02/16 04:00 97.6 51 14 115/57 (76) 98 10/02/16 02:00 48 10/02/16 00:00 51 10/02/16 00:00 40 10/02/16 00:00 98.1 51 14 101/72 (82) 100 10/01/16 22:00 63 10/01/16 20:00 56 10/01/16 20:00 97.7 55 14 106/51 (69) 100 10/01/16 20:00 40 10/01/16 19:52 98 40 10/01/16 18:13 58 10/01/16 17:55 98 40 10/01/16 16:00 62 10/01/16 16:00 97.8 58 14 113/58 (76) 99 10/01/16 16:00 40 10/01/16 14:19 98 40 10/01/16 14:13 51 10/01/16 12:00 40 10/01/16 12:00 64 10/01/16 12:00 97.9 64 14 108/55 (72) 98 10/01/16 11:52 97 40 10/01/16 10:00 69 10/01/16 09:05 98 40 10/01/16 08:00 64 10/01/16 08:00 98.0 64 14 107/52 (70) 97 10/01/16 08:00 40 I/O 10/01/16 10/01/16 10/01/16 10/02/16 10/02/16 10/02/16 07:00 15:00 23:00 07:00 15:00 23:00 Intake Total 529 ml 630 ml 410 ml Output Total 1650 ml 1450 ml 350.0 ml Balance -1121 ml -820 ml 60.0 ml Intake Oral 100 ml IV Total 529 ml 530 ml 410 ml Output Urine Total 1500 ml 1400 ml 350 ml Stool Total 0 ml 0 ml Gastric Drainage Total 100 ml Tube Feeding Residual Discard 0 ml Drainage Total 50 ml 50 ml Result Diagram: 10/02/16 0410 10/02/16 0410 Imaging Last 24 hours Impressions Chest X-Ray 09/29/16 0000 Signed Impressions: Service Date/Time: Thursday, September 29, 2016 04:45 - CONCLUSION: Endotracheal tube and left subclavian central line are in good position. Lungs are grossly clear. Dereck Hou MD Pelvis X-Ray 09/28/161638 Signed Impressions: Service Date/Time: September 16:24 - CONCLUSION: Diastasis symphysis pubis. Aleksandra Amin MD Maxillofacial CT 09/28/161638 Signed Impressions: Service Date/Time: September 16:50 - CONCLUSION: Extensive fractures with complete dislocation of the left mandibular condyle displaced medial to mandibular body in addition to complex fractures of multiple bones. Aleksandra Amin MD Head CT 09/28/161638 Signed Impressions: Service Date/Time: September 16:47 - CONCLUSION: There is no evidence of any significant hemorrhage or mass effect. Aleksandra Amin MD Chest X-Ray 09/28/161638 Signed Impressions: Service Date/Time: September 16:24 - CONCLUSION: No acute cardiopulmonary disease. Aleksandra Amin MD Chest CT 09/28/161638 Signed Impressions: Service Date/Time: September 16:54 - CONCLUSION: Small right anterior pneumothorax. Aleksandra Amin MD Cervical Spine CT 09/28/161638 Signed Impressions: Service Date/Time: September 16:50 - CONCLUSION: Neural foramina compromise right C2-C3, right C3-C4, left C4-5, bilateral C5-C6 left C6-C7 and lateral recess compromise right C3-C4, left C4-5, right C5-C6. No thecal sac stenosis or fracture. Aleksandra Amin MD Abdomen/Pelvis CT 09/28/16 163 Signed Impressions: Service Date/Time: September 16:56 - CONCLUSION: 1. Extraperitoneal hematoma behind the symphysis pubi and anterior to them. 2. Small right anterior pneumothorax. 3. Bilateral renal stones. Aleksandra Amin MD Objective Remarks RLE: +exfix. proximal pin sites with bloody drainage. remaining sites clean. + vac. good seal. running appropriately. Pelvis: +exfix. pin sites clean. LLE: Mild swelling of ankle. No instability. No crepitus. Painful with range of motion, patient withdraws. No effusion of the left knee. RUE: No abnormal swelling of the wrist or elbow. Abrasion of the right shoulder. LUE: No abnormal swelling of the wrist or elbow. No swelling of the shoulder Assessment & Plan Assessment and Plan POD 4 s/p exfix right femur/tibia/pelvis 1) Right Femoral Shaft Fx 2) Right Proximal Tibia Fracture 3) Disruption of Pubic Symphysis PLAN: -pin care BID -npo after MN sunday -will plan for OR depending on patients condition Patient's hemoglobin is stable. Platelet count greater than 100 No dressing change. Will defer to trauma/general surgery with regard to anticoagulation xrays of ankle reviewed. no fracture seen Lloyd Rust Oct 02, 2016 07:15
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
[2016-10-02] MEDS: fentaNYL 2,500 MCG/NS 250 ML IV PRN ×2 (08:19→22:20)
[2016-10-02] MEDS: DOCUSATE SODIUM 50 MG/SENNA 8.6 MG TAB NG SCH ×2 (08:20→20:19)
[2016-10-02] MEDS: PROPOFOL 1000 MG/100 ML INJ 100 ML IV PRN ×3 (08:20→18:11)
[2016-10-02] MEDS: ENOXAPARIN SODIUM 40 MG/0.4 ML SYRINGE SQ SCH (10:04)
[2016-10-02] MEDS: LACTULOSE SYRUP 20 GM/30 ML CUP PO SCH ×2 (10:05→20:18)
[2016-10-02] MEDS: POLYETHYLENE GLYCOL 17 GM PKG PO SCH ×2 (10:05→20:18)
[2016-10-02] MEDS: FAMOTIDINE 20 MG TAB NG SCH ×2 (10:05→20:18)
[2016-10-02] MEDS: DOCUSATE SODIUM 50 MG/SENNA 8.6 MG TAB PO SCH ×2 (10:06→21:00)
[2016-10-02] MEDS: BISACODYL 10 MG SUPP RECTAL SCH (10:07)
[2016-10-02 10:50] LABS: BLOOD GAS BASE EXCESS 1.1 mmol/L (-2-2); BLOOD GAS CARBOXYHEMOGLOBIN 1.2 % (0-4); BLOOD GAS HCO3 25 mmol/L (22-26); BLOOD GAS METHEMOGLOBIN 0.8 % (0-2); BLOOD GAS O2 HGB SATURATION 97 % (90-100); BLOOD GAS OXYGEN CONTENT 11.6 Vol % (12.0-20.0); BLOOD GAS PCO2 41 mmHg (38-42); BLOOD GAS PO2 136 mmHg (61-120); BLOOD GAS TOTAL HGB 8.3 G/DL (12.0-16.0); CRITICAL VALUE NO; OXYGEN DEVICE VENTILATOR; TEMP CORR TO 98.6
[2016-10-02 10:51] LABS: DRAW SITE ART LINE; FIO2 40 %; STAT NO
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
[2016-10-02] MEDS: QUEtiapine FUMARATE 25 MG TAB PO SCH ×3 (13:52→20:18)
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
--- NOTE | 2016-10-02 20:16 | ECHRPT ---
Indication: TRAUMA CONCLUSIONS Normal left ventricular size. Wall thickness is normal. The left ventricular systolic function is normal with an estimated ejection fraction of 55%. The right ventricle is mildly dilated. Trace mitral valve regurgitation. There is trace tricuspid valve regurgitation. The estimated pulmonary arterial pressure is 35 mmHg. BP: / HR: Rhythm: Sinus MEASUREMENTS (Male / Female) Normal Values Technical Quality:Good 2D ECHO LV Diastolic Diameter PLAX 4.3 cm 4.2 - 5.9 / 3.9 - 5.3 cm LV Systolic Diameter PLAX 3.4 cm IVS Diastolic Thickness 1.1 cm 0.6 - 1.0 / 0.6 - 0.9 cm LVPW Diastolic Thickness 0.8 cm 0.6 - 1.0 / 0.6 - 0.9 cm LV Relative Wall Thickness 0.4 LA Systolic Diameter LX 4.6 cm 3.0 - 4.0 / 2.7 - 3.8 cm M-MODE Aortic Root Diameter MM 3.2 cm AV Cusp Separation MM 2.1 cm DOPPLER Mitral E Point Velocity 115.0 cm/s Mitral A Point Velocity 50.3 cm/s Mitral E to A Ratio 2.3 TR Peak Velocity 248.3 cm/s TR Peak Gradient 24.7 mmHg FINDINGS LEFT VENTRICLE Normal left ventricular size. Wall thickness is normal. The left ventricular systolic function is normal with an estimated ejection fraction of 55%. RIGHT VENTRICLE The right ventricle is mildly dilated. LEFT ATRIUM The left atrial size is normal. RIGHT ATRIUM The right atrial size is normal. ATRIAL SEPTUM Normal atrial septal thickness without atrial level shunting by limited color doppler interrogation. AORTA The aortic root and proximal ascending aorta are normal in size on limited imaging. MITRAL VALVE Trace mitral valve regurgitation. AORTIC VALVE Trileaflet aortic valve. No aortic valve stenosis or regurgitation. TRICUSPID VALVE There is trace tricuspid valve regurgitation. The estimated pulmonary arterial pressure is 35 mmHg. PULMONARY VALVE The pulmonary valve is not well visualized. VESSELS The inferior vena cava is normal in size. PERICARDIUM No pericardial effusion. Wojciech Adler MD, FACC (Electronically Signed) Final Date:02 October 2016 20:15
[2016-10-03] VITALS (20 sets, daily range): BP systolic 100–145; BP diastolic 55–76; PULSE 56–72; RESP 10–15; TEMP 97.1–99; O2SAT 96–100
[2016-10-03] MEDS: PROPOFOL 1000 MG/100 ML INJ 100 ML IV PRN ×6 (00:59→20:36)
[2016-10-03] MEDS: RESP: ALBUTEROL 2.5 MG/IPRATROPIUM 0.5 MG NEB (SCH) NEB ×2 (03:18→07:56)
[2016-10-03] MEDS: CHLORHEXIDINE GLUCONATE 2 % 1 PACK (2 CLOTHS) TOP SCH (04:00)
[2016-10-03 04:12] LABS: AUTOMATED NEUTROPHIL # 5.3 TH/MM3 (1.8-7.7); BASOPHIL % 0.1 % (0.0-2.0); EOSINOPHIL % 0.1 % (0.0-4.0); HEMATOCRIT 23.2 % (39.0-51.0); HEMO FLAGS DIFF FINAL; LYMPH % 13.1 % (9.0-44.0); LYMPHOCYTE # 0.9 TH/MM3 (1.0-4.8); MEAN CELL VOLUME 88.6 FL (80.0-100.0); MEAN CORPUSCULAR HEMOGLOBIN 29.9 PG (27.0-34.0); MEAN CORPUSCULAR HGB CONC 33.7 % (32.0-36.0); NEUT % 78.7 % (16.0-70.0); PLATELET COUNT 172 TH/MM3 (150-450); RED BLOOD COUNT 2.62 MIL/MM3 (4.50-5.90); RED CELL DISTRIBUTION WIDTH 15.5 % (11.6-17.2); WHITE BLOOD COUNT 6.8 TH/MM3 (4.0-11.0)
[2016-10-03 04:33] LABS: ANION GAP 7 MEQ/L (5-15); AST (GOT) 43 U/L (15-37); BICARBONATE 25.9 MEQ/L (21.0-32.0); BLOOD UREA NITROGEN 18 MG/DL (7-18); CHLORIDE 115 MEQ/L (98-107); GLOMERULAR FILTRATION RATE 77 ML/MIN (>89); POTASSIUM 3.8 MEQ/L (3.5-5.1); SODIUM (NA) 148 MEQ/L (136-145)
[2016-10-03 04:44] LABS: ALKALINE PHOSPHATASE 53 U/L (45-117); ALT (GPT) 42 U/L (12-78); TOTAL BILIRUBIN ADULT 0.5 MG/DL (0.2-1.0)
--- NOTE | 2016-10-03 04:57 | RADRPT ---
EXAM DATE/TIME: 10/03/2016 04:13 [place] COMPARISON: CHEST SINGLE AP, October 02, 2016, 2:16. INDICATIONS : Short of breath. MEDICAL HISTORY : Renal calculi. SURGICAL HISTORY : Pelvic external fixation ENCOUNTER: Subsequent ACUITY: 4 - 6 days PAIN SCORE: Non-responsive. LOCATION: Bilateral chest FINDINGS: Portable AP view of the chest demonstrates a normal-sized cardiac silhouette. ETT, NG tube, and left subclavian central line remain present. There is a moderate size right basilar pleural-parenchymal op acity and there is airspace opacity at the left base. No pneumothorax is visualized. CONCLUSION: Stable chest x-ray with right pleural effusion with associated volume loss and/or consolidation. At t he left base there is atelectasis versus airspace consolidation. Naren Bran MD on October 03, 2016 at 4:55 Board Certified Radiologist. This report was verified electronically.
[2016-10-03] MEDS: INSULIN ASPART SUPPLEMENTAL SCALE SQ SCH ×4 (05:00→23:00)
[2016-10-03] MEDS: QUEtiapine FUMARATE 25 MG TAB PO SCH ×3 (05:26→20:38)
--- NOTE | 2016-10-03 07:16 | PD.ORT.PN ---
Subjective Subjective Remarks POD 5 s/p EXfix application of right tibia/femur/pelvis and vac application right tibia intubated/sedated. Objective Vitals Vital Signs Date Time Temp Pulse Resp B/P (MAP) Pulse Ox O2 Delivery O2 Flow Rate FiO2 10/03/16 06:00 72 10/03/16 04:00 62 10/03/16 04:00 100 40 10/03/16 04:00 97.6 62 10 127/61 (83) 100 10/03/16 04:00 40 10/03/16 02:00 56 10/03/16 01:20 100 40 10/03/16 00:00 97.1 60 10 145/70 (95) 100 10/03/16 00:00 60 10/03/16 00:00 40 10/02/16 22:00 58 10/02/16 20:06 99 40 10/02/16 20:00 97.1 60 10 145/70 (95) 100 10/02/16 20:00 40 10/02/16 20:00 98.2 56 10 123/57 (79) 98 10/02/16 20:00 56 10/02/16 18:00 56 10/02/16 16:00 53 10/02/16 16:00 40 10/02/16 16:00 97.6 49 10 145/70 (95) 100 10/02/16 14:00 47 10/02/16 12:00 40 10/02/16 12:00 97.6 49 10 145/70 (95) 100 10/02/16 12:00 49 10/02/16 12:00 100 40 10/02/16 10:00 51 10/02/16 08:01 99 40 10/02/16 08:01 98 Ventilator 40 10/02/16 08:00 40 10/02/16 08:00 51 10/02/16 08:00 97.2 52 14 107/49 (68) 97 I/O 10/02/16 10/02/16 10/02/16 10/03/16 10/03/16 10/03/16 07:00 15:00 23:00 07:00 15:00 23:00 Intake Total 723.0 ml 202 ml 471 ml 741 ml Output Total 1000 ml 0 ml 1975.0 ml 1850 ml Balance -277.0 ml 202 ml -1504.0 ml -1109 ml IV Total 723.0 ml 202 ml 471 ml 483 ml Tube Feeding 138 ml Other 120 ml Output Urine Total 900 ml 1975 ml 1800 ml Stool Total 0 ml 0 ml Tube Feeding Residual Discard 0 ml 0 ml Drainage Total 100 ml 0 ml 50 ml Result Diagram: 10/03/16 0356 10/03/16 0356 Imaging Last 24 hours Impressions Chest X-Ray 09/29/16 0000 Signed Impressions: Service Date/Time: Thursday, September 29, 2016 04:45 - CONCLUSION: Endotracheal tube and left subclavian central line are in good position. Lungs are grossly clear. Dereck Hou MD Pelvis X-Ray 09/28/161638 Signed Impressions: Service Date/Time: September 16:24 - CONCLUSION: Diastasis symphysis pubis. Aleksandra Amin MD Maxillofacial CT 09/28/161638 Signed Impressions: Service Date/Time: September 16:50 - CONCLUSION: Extensive fractures with complete dislocation of the left mandibular condyle displaced medial to mandibular body in addition to complex fractures of multiple bones. Aleksandra Amin MD Head CT 09/28/161638 Signed Impressions: Service Date/Time: September 16:47 - CONCLUSION: There is no evidence of any significant hemorrhage or mass effect. Aleksandra Amin MD Chest X-Ray 09/28/161638 Signed Impressions: Service Date/Time: September 16:24 - CONCLUSION: No acute cardiopulmonary disease. Aleksandra Amin MD Chest CT 09/28/161638 Signed Impressions: Service Date/Time: September 16:54 - CONCLUSION: Small right anterior pneumothorax. Aleksandra Amin MD Cervical Spine CT 09/28/161638 Signed Impressions: Service Date/Time: September 16:50 - CONCLUSION: Neural foramina compromise right C2-C3, right C3-C4, left C4-5, bilateral C5-C6 left C6-C7 and lateral recess compromise right C3-C4, left C4-5, right C5-C6. No thecal sac stenosis or fracture. Aleksandra Amin MD Abdomen/Pelvis CT 09/28/16 2926 Signed Impressions: Service Date/Time: September 16:56 - CONCLUSION: 1. Extraperitoneal hematoma behind the symphysis pubi and anterior to them. 2. Small right anterior pneumothorax. 3. Bilateral renal stones. Aleksandra Amin MD Objective Remarks RLE: +exfix. proximal pin sites with bloody drainage. remaining sites clean. + vac. good seal. running appropriately. Pelvis: +exfix. pin sites clean. LLE: Mild swelling of ankle. No instability. No crepitus. Painful with range of motion, patient withdraws. No effusion of the left knee. RUE: No abnormal swelling of the wrist or elbow. Abrasion of the right shoulder. LUE: No abnormal swelling of the wrist or elbow. No swelling of the shoulder Assessment & Plan Assessment and Plan POD 5 s/p exfix right femur/tibia/pelvis 1) Right Femoral Shaft Fx 2) Right Proximal Tibia Fracture 3) Disruption of Pubic Symphysis PLAN: -OR today for ORIF of pubic symphysis Lloyd Rust Oct 03, 2016 07:16
[2016-10-03] MEDS: fentaNYL 2,500 MCG/NS 250 ML IV PRN ×3 (07:47→20:36)
[2016-10-03] MEDS: CHLORHEXIDINE 0.12% (ORAL KIT) 15 ML CUP MT SCH ×2 (08:00→20:40)
[2016-10-03] MEDS ORDERED: ceFAZolin INJ 1,000 MG VIAL ONE (08:18)
[2016-10-03] MEDS ORDERED: VANCOMYCIN HCL 1000 MG VIAL ONE (08:18)
[2016-10-03] MEDS ORDERED: GENTAMICIN SULFATE 80 MG/2 ML VIAL ONE (08:19)
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
[2016-10-03] MEDS ORDERED: SODIUM CHLORIDE 0.9% IV SCH (09:00)
[2016-10-03] MEDS ORDERED: TRANEXAMIC ACID IV SCH (09:00)
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
[2016-10-03] MEDS ORDERED: TRANEXAMIC ACID INJ 1,000 MG/10 ML AMP IV ONE (09:06)
[2016-10-03] MEDS ORDERED: HEPARIN SODIUM - SQ 10,000 UNITS/ML VIAL ONE (09:25)
[2016-10-03 10:14] LABS: AUTOMATED NEUTROPHIL # 4.8 TH/MM3 (1.8-7.7); BASOPHIL % 0.1 % (0.0-2.0); EOSINOPHIL % 0.3 % (0.0-4.0); HEMATOCRIT 23.4 % (39.0-51.0); HEMO FLAGS DIFF FINAL; LYMPH % 17.3 % (9.0-44.0); LYMPHOCYTE # 1.1 TH/MM3 (1.0-4.8); MEAN CELL VOLUME 89.1 FL (80.0-100.0); MEAN CORPUSCULAR HEMOGLOBIN 29.9 PG (27.0-34.0); MEAN CORPUSCULAR HGB CONC 33.6 % (32.0-36.0); MONO % 9.2 % (0.0-8.0); NEUT % 73.1 % (16.0-70.0); PLATELET COUNT 163 TH/MM3 (150-450); RED BLOOD COUNT 2.62 MIL/MM3 (4.50-5.90); RED CELL DISTRIBUTION WIDTH 15.5 % (11.6-17.2); WHITE BLOOD COUNT 6.5 TH/MM3 (4.0-11.0)
[2016-10-03] MEDS: LACTATED RINGER'S 1000 ML INJ 1,000 ML IV SCH (10:19)
--- NOTE | 2016-10-03 10:25 | PD.OP ---
cc: Ki Yeboah MD Operative Report Date of Surgery: Oct 03, 2016 Preoperative Diagnosis: Open right tibia fracture, pubic symphysis disruption Postoperative Diagnosis: Procedure: Open reduction internal fixation pubic symphysis, removal of external fixation, irrigation and debridement of open tibia fracture Anesthesia: Gen. Surgeon: Ki Yeboah Iron Launder Operator(s): ROMULO Mata PA-C The surgical procedure was assisted by my physician early childhood teacher assistant. My P.A. presence was necessary throughout this case for the manipulation and positioning of the surgical extremity. My P.A. was assisting me throughout the duration of this procedure. The skill set of a physician early childhood teacher assistant was medically necessary to complete this procedure. During the surgical case the surgical nurse practitioner was working at the back table and the physician early childhood teacher assistant was directly assisting me. Operation and Findings: Patient was seen and evaluated preoperatively. Informed consent was obtained from family after detailed discussion of risk and benefits of surgery. The operative site was marked. Patient was brought to the OR and placed on the OR table. IV sedation and general endotracheal anesthesia were administered. The pelvic region and right leg were prepped with alcohol followed by Hibiclens and draped in the usual sterile fashion. A timeout procedure was performed. IV antibiotics were given prior to incision. The procedure began removal of a portion of the external fixator. The pins were left in place and the pelvis. The bars and clamps were removed. Next a five-inch Pfannenstiel incision was made over the lower abdomen. The subcutaneous tissue was dissected with Bovie. The linea alba was split in line with fibers. The bladder was identified. The bladder was protected throughout the procedure. At this point the pubic symphysis was identified. There was disruption of the pubic symphysis. A 3.5 screw was placed on each side of the pubic symphysis. A 3.5 reduction clamp was now used to reduce the symphysis. Fluoroscopy confirmed excellent alignment of the pelvic ring. A six-hole ITS plate was selected. The plate was provisionally held to bone with K-wires. 3.5 cortical screws were used to compress plate to bone. Three screws were placed on each side of the pubic symphysis. All screws were pre-drilled and pre -measured for appropriate length. Final fluoroscopy revealed well-aligned fracture with well-placed hardware.Next attention was turned to closure. A MALORIE drain was placed deep in the wound. Fascial layer was closed with #1 Vicryl. Subcutaneous tissues closed with 3-0 Vicryl. Skin was closed with [place]. Nexus was turned to the tibia. The traumatic laceration was opened over the tibia. Skin subcutaneous tissue and fascia were sharply debrided. Multiple bone fragments were excised. Curettes were used to debride bone. Wound was now thoroughly irrigated with 3 layers of sterile saline. Overall the wound appeared to be clean. There is severe comminution of the fracture site. The traumatic laceration was now closed with 3-0 nylon. Last attention was turned towards removal of the external fixator pins. Using a drill each of the pins were now removed. Sterile dressings were applied. Needle and sponge counts were correct. Ki Yeboah MD Oct 03, 2016 10:25
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
[2016-10-03] MEDS ORDERED: fentaNYL CITRATE 250 MCG/5 ML AMP IV ONE (12:00)
[2016-10-03] MEDS ORDERED: LACTATED RINGER'S 1000 ML INJ 1,000 ML IV ONE (12:00)
[2016-10-03] MEDS ORDERED: PROPOFOL 200 MG/20 ML AMP IV ONE (12:00)
[2016-10-03] MEDS ORDERED: AMIODARONE HCL 150 MG/3 ML VIAL IV ONE (12:00)
[2016-10-03] MEDS: ENOXAPARIN SODIUM 40 MG/0.4 ML SYRINGE SQ SCH (13:02)
[2016-10-03] MEDS: ceFAZolin 2 GM PREMIX 50 ML IV SCH ×2 (13:02→20:35)
[2016-10-03] MEDS: LACTULOSE SYRUP 20 GM/30 ML CUP PO SCH ×2 (13:02→20:37)
[2016-10-03] MEDS: BISACODYL 10 MG SUPP RECTAL SCH (13:03)
[2016-10-03] MEDS: FAMOTIDINE 20 MG TAB NG SCH ×2 (13:03→20:37)
[2016-10-03] MEDS: DOCUSATE SODIUM 50 MG/SENNA 8.6 MG TAB NG SCH ×2 (13:03→20:37)
[2016-10-03] MEDS: POLYETHYLENE GLYCOL 17 GM PKG PO SCH ×2 (13:03→20:38)
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
--- NOTE | 2016-10-03 14:55 | RADRPT ---
EXAM DATE/TIME: 10/03/2016 09:57 [facility] COMPARISON: No previous studies available for comparison. INDICATIONS : Pubic symphisis open reduction internal fixation. MEDICAL HISTORY : Renal calculi. SURGICAL HISTORY : Pelvic Ex-fix. ENCOUNTER: Subsequent ACUITY: 1 day PAIN SCORE: Non-responsive. LOCATION: pelvis FINDINGS: Multiple C-arm matrix views of the lower pelvis reveals a plate and multiple screws across the symphy sis with bony structures is intact and the symphysis is not widened. CONCLUSION: Orthopedic plating of the symphysis Rasheed Stevens MD on October 03, 2016 at 14:53 Board Certified Radiologist. This report was verified electronically.
[2016-10-03] MEDS ORDERED: LIDOCAINE HCL 1% 50 ML VIAL ONE (15:23)
--- NOTE | 2016-10-03 16:36 | RADRPT ---
EXAM DATE/TIME: 10/03/2016 15:51 [facility] COMPARISON: CHEST SINGLE AP, October 03, 2016, 4:13. INDICATIONS : Evaluate right chest tube MEDICAL HISTORY : Renal calculi. pelvic fracture SURGICAL HISTORY : pelvic external fixation ENCOUNTER: Subsequent ACUITY: 4 - 6 days PAIN SCORE: Non-responsive. Findings ET tube remains above the joseph a nasogastric tube the midline at the stomach and patch y density in the left base is unchanged. There is in placement of a right chest tube term inating towards upper lobe apex and a great degree of the density in the right lung base has cleared representing effusion. No evidence of pneumothorax. CONCLUSION: Placement of right chest tube with clearing of the majority of right basilar density effusion. No pne umothorax. Chest otherwise stable Rasheed Stevens MD on October 03, 2016 at 16:33 Board Certified Radiologist. This report was verified electronically.
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
--- NOTE | 2016-10-03 17:33 | RADRPT ---
EXAM DATE/TIME: 10/03/2016 16:47 [facility] COMPARISON: CHEST SINGLE AP, October 03, 2016, 15:51. INDICATIONS : Evaluate right chest tube. MEDICAL HISTORY : Renal calculi. pelvic fracture. SURGICAL HISTORY : Pelvic external fixation ENCOUNTER: Subsequent ACUITY: 4 - 6 days PAIN SCORE: Non-responsive. LOCATION: Bilateral chest FINDINGS: ET tube remains above the joseph nasogastric tube is in the midline and left subclavian venous cathet er in place. Right chest tube is unchanged terminating towards the upper lobe apex with clearing of t he majority of right basilar density effusion. There is persistent left basilar infiltrate or atelect asis CONCLUSION: Stable chest. Right chest tube in place toward the apex. Rasheed Stevens MD on October 03, 2016 at 17:30 Board Certified Radiologist. This report was verified electronically.
--- NOTE | 2016-10-03 23:09 | MP ---
cc: MD JEFFERSON,DERIK DATE OF SURGERY 10/03/16 PREOPERATIVE DIAGNOSIS Right-sided hydrothorax. POSTOPERATIVE DIAGNOSIS Right old hemothorax. OPERATIVE PROCEDURE Right chest tube placement, drains of 700 cc of old blood. SURGEON Derik Santa MD ANESTHESIA General and 1% Xylocaine. ESTIMATED BLOOD LOSS Minimal. PROCEDURE IN DETAIL The patient prepped and draped in usual fashion. Area infiltrated with 1% xylocaine. Incision made in the midaxillary line about seventh intercostal space deepened down to the rib cage with a hemostat and then pleural space entered. 20-Sami chest tube is placed in posterior sulcus, insertion placed with 2-0 silk. Chest x-ray obtained. About 700 cc of old blood drain. The patient tolerated the procedure well. Derik DAVIS/RODY /3:41 PM /10:56 PM
[2016-10-04] VITALS (18 sets, daily range): BP systolic 97–173; BP diastolic 51–74; PULSE 71–99; RESP 10–14; TEMP 98.2–100.1; O2SAT 94–99
[2016-10-04] MEDS: PROPOFOL 1000 MG/100 ML INJ 100 ML IV PRN ×7 (02:08→20:56)
[2016-10-04] MEDS: CHLORHEXIDINE GLUCONATE 2 % 1 PACK (2 CLOTHS) TOP SCH (04:00)
[2016-10-04] MEDS: ceFAZolin 2 GM PREMIX 50 ML IV SCH ×3 (04:58→20:53)
[2016-10-04] MEDS: INSULIN ASPART SUPPLEMENTAL SCALE SQ SCH ×4 (05:00→22:59)
[2016-10-04] MEDS: QUEtiapine FUMARATE 25 MG TAB PO SCH (05:00)
[2016-10-04 05:43] LABS: AUTOMATED NEUTROPHIL # 7.3 TH/MM3 (1.8-7.7); BASOPHIL % 0.2 % (0.0-2.0); EOSINOPHIL # 0.1 TH/MM3 (0-0.4); EOSINOPHIL % 1.4 % (0.0-4.0); HEMO FLAGS DIFF FINAL; LYMPH % 8.2 % (9.0-44.0); LYMPHOCYTE # 0.7 TH/MM3 (1.0-4.8); MEAN CELL VOLUME 88.3 FL (80.0-100.0); MEAN CORPUSCULAR HEMOGLOBIN 30.6 PG (27.0-34.0); MEAN CORPUSCULAR HGB CONC 34.6 % (32.0-36.0); MONO % 4.8 % (0.0-8.0); NEUT % 85.4 % (16.0-70.0); PLATELET COUNT 179 TH/MM3 (150-450); RED BLOOD COUNT 3.05 MIL/MM3 (4.50-5.90); RED CELL DISTRIBUTION WIDTH 14.6 % (11.6-17.2); WHITE BLOOD COUNT 8.6 TH/MM3 (4.0-11.0)
[2016-10-04] MEDS: LACTATED RINGER'S 1000 ML INJ 1,000 ML IV SCH ×2 (06:19→16:19)
[2016-10-04 06:23] LABS: BICARBONATE 26.7 MEQ/L (21.0-32.0); CALCIUM-PROTEIN CORRECTED 8.3 MG/DL (8.5-10.1); POTASSIUM 3.7 MEQ/L (3.5-5.1)
--- NOTE | 2016-10-04 07:10 | PD.ORT.PN ---
Subjective Subjective Remarks POD 1 s/p ORIF pubic symphysis POD 1 s/p I&D with vac change right leg POD 6 s/p EXfix application of right tibia intubated/sedated. Objective Vitals Vital Signs Date Time Temp Pulse Resp B/P (MAP) Pulse Ox O2 Delivery O2 Flow Rate FiO2 10/04/16 04:01 94 40 10/04/16 04:00 96 10/04/16 04:00 40 10/04/16 02:00 99 10/04/16 01:02 98 40 10/04/16 00:00 40 10/04/16 00:00 80 10/04/16 00:00 100.1 80 14 173/74 (107) 95 10/03/16 22:00 72 10/03/16 20:27 97 40 10/03/16 20:00 40 10/03/16 20:00 70 10/03/16 20:00 99.0 70 12 106/55 (72) 100 10/03/16 18:00 69 10/03/16 16:00 40 10/03/16 16:00 97.9 67 15 118/62 (80) 100 10/03/16 16:00 67 10/03/16 16:00 97.9 67 15 118/68 100 10/03/16 15:56 100 40 10/03/16 14:35 97.9 67 14 142/76 99 10/03/16 14:18 97.3 69 14 130/70 100 10/03/16 14:00 69 10/03/16 12:50 97.7 64 14 127/74 100 10/03/16 12:33 97.6 65 14 106/59 100 10/03/16 12:00 97.6 66 10 106/59 (75) 100 10/03/16 12:00 66 10/03/16 12:00 100 10/03/16 08:30 100 100 10/03/16 08:00 98.9 67 10 100/55 (70) 100 Arterial Line 10/03/16 08:00 67 10/03/16 08:00 40 10/03/16 07:47 96 40 10/03/16 07:47 96 Ventilator 40 I/O 10/03/16 10/03/16 10/03/16 10/04/16 10/04/16 10/04/16 06:59 14:59 22:59 06:59 14:59 22:59 Intake Total 741 ml 974 ml 812 ml Output Total 1850 ml 1600 ml 2340.0 ml 0 ml Balance -1109 ml -626 ml -1528.0 ml 0 ml IV Total 483 ml 294 ml 552 ml Tube Feeding 138 ml Packed Cells 250 ml 250 ml Blood Product IV Normal Saline Flush 30 ml 10 ml Other 120 ml 400 ml Output Urine Total 1800 ml 100 ml 1600 ml Stool Total 0 ml 0 ml Tube Feeding Residual Discard 0 ml 0 ml Chest Tube Drainage Total 660 ml Drainage Total 50 ml 80 ml Estimated Blood Loss 1500 ml Result Diagram: 10/04/16 0518 10/04/16 0518 Imaging Last 24 hours Impressions Chest X-Ray 09/29/16 0000 Signed Impressions: Service Date/Time: Thursday, September 29, 2016 04:45 - CONCLUSION: Endotracheal tube and left subclavian central line are in good position. Lungs are grossly clear. Dereck Hou MD Pelvis X-Ray 09/28/161638 Signed Impressions: Service Date/Time: September 16:24 - CONCLUSION: Diastasis symphysis pubis. Aleksandra Amin MD Maxillofacial CT 09/28/161638 Signed Impressions: Service Date/Time: September 16:50 - CONCLUSION: Extensive fractures with complete dislocation of the left mandibular condyle displaced medial to mandibular body in addition to complex fractures of multiple bones. Aleksandra Amin MD Head CT 09/28/161638 Signed Impressions: Service Date/Time: September 16:47 - CONCLUSION: There is no evidence of any significant hemorrhage or mass effect. Aleksandra Amin MD Chest X-Ray 09/28/161638 Signed Impressions: Service Date/Time: September 16:24 - CONCLUSION: No acute cardiopulmonary disease. Aleksandra Amin MD Chest CT 09/28/161638 Signed Impressions: Service Date/Time: September 16:54 - CONCLUSION: Small right anterior pneumothorax. Aleksandra Amin MD Cervical Spine CT 8/24/17 1639 Signed Impressions: Service Date/Time: September 16:50 - CONCLUSION: Neural foramina compromise right C2-C3, right C3-C4, left C4-5, bilateral C5-C6 left C6-C7 and lateral recess compromise right C3-C4, left C4-5, right C5-C6. No thecal sac stenosis or fracture. Aleksandra Amin MD Abdomen/Pelvis CT 09/28/16 1639 Signed Impressions: Service Date/Time: September 16:56 - CONCLUSION: 1. Extraperitoneal hematoma behind the symphysis pubi and anterior to them. 2. Small right anterior pneumothorax. 3. Bilateral renal stones. Aleksandra Amin MD Objective Remarks RLE: +exfix. proximal pin sites with bloody drainage. remaining sites clean. + vac. good seal. running appropriately. moderate to severe swelling of thigh and lower leg. Pelvis:dressings clean and dry. intact. +drain. LLE: Mild swelling of ankle. No instability. No crepitus. Painful with range of motion, patient withdraws. No effusion of the left knee. RUE: No abnormal swelling of the wrist or elbow. Abrasion of the right shoulder. LUE: No abnormal swelling of the wrist or elbow. No swelling of the shoulder Assessment & Plan Assessment and Plan 1) Right Femoral Shaft Fx 2) Right Proximal Tibia Fracture 3) Disruption of Pubic Symphysis POD 1 s/p ORIF pubic symphysis POD 1 s/p I&D with vac change right leg POD 6 s/p EXfix application of right tibia PLAN: -maintain drain in pelvis. plan for DC drain POD 2 if drainage level acceptable -begin daily dressing changes of pelvis POD 2 -continue pin care BID of right leg -maintain wound vac right leg -swelling too much for surgery of right leg at this point -will re-eval for surgery Sunday of right leg. may be next week before leg is ready for surgery. -NPO after MN thurs -hold lovenox after Thurs AM dose. Lloyd Rust Oct 04, 2016 07:10
[2016-10-04] MEDS: CHLORHEXIDINE 0.12% (ORAL KIT) 15 ML CUP MT SCH ×2 (08:16→20:53)
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
[2016-10-04] MEDS: POLYETHYLENE GLYCOL 17 GM PKG PO SCH ×2 (08:24→20:53)
[2016-10-04] MEDS: BISACODYL 10 MG SUPP RECTAL SCH (08:24)
[2016-10-04] MEDS: DOCUSATE SODIUM 50 MG/SENNA 8.6 MG TAB NG SCH ×2 (08:24→20:53)
[2016-10-04] MEDS: ENOXAPARIN SODIUM 40 MG/0.4 ML SYRINGE SQ SCH (08:24)
[2016-10-04] MEDS: FAMOTIDINE 20 MG TAB NG SCH ×2 (08:24→20:53)
[2016-10-04] MEDS: LACTULOSE SYRUP 20 GM/30 ML CUP PO SCH ×2 (08:25→20:53)
[2016-10-04 11:36] LABS: BLOOD GAS BASE EXCESS 0.2 mmol/L (-2-2); BLOOD GAS CARBOXYHEMOGLOBIN 2.1 % (0-4); BLOOD GAS HCO3 25 mmol/L (22-26); BLOOD GAS METHEMOGLOBIN 1.3 % (0-2); BLOOD GAS O2 HGB SATURATION 93 % (90-100); BLOOD GAS OXYGEN CONTENT 11.7 Vol % (12.0-20.0); BLOOD GAS PCO2 41 mmHg (38-42); BLOOD GAS PO2 82 mmHg (61-120); BLOOD GAS TOTAL HGB 8.9 G/DL (12.0-16.0); CRITICAL VALUE NO; OXYGEN DEVICE VENTILATOR; TEMP CORR TO 98.6
[2016-10-04 11:37] LABS: DRAW SITE RT RADIAL; FIO2 35 %; NUMBER OF ARTERIAL PUNCTURES 2; STAT NO; ULNAR PULSE PRESENT
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
[2016-10-04] MEDS: fentaNYL 2,500 MCG/NS 250 ML IV PRN ×2 (13:19→23:56)
[2016-10-04] MEDS: QUEtiapine FUMARATE 100 MG TAB PO SCH ×2 (14:08→20:53)
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
[2016-10-05] VITALS (19 sets, daily range): BP systolic 105–120; BP diastolic 50–63; PULSE 72–99; RESP 10–16; TEMP 98.5–99.5; O2SAT 93–100
[2016-10-05] MEDS: PROPOFOL 1000 MG/100 ML INJ 100 ML IV PRN ×6 (02:16→14:41)
[2016-10-05] MEDS: LACTATED RINGER'S 1000 ML INJ 1,000 ML IV SCH ×3 (02:19→21:11)
[2016-10-05] MEDS: ceFAZolin 2 GM PREMIX 50 ML IV SCH ×3 (03:38→21:11)
[2016-10-05] MEDS: CHLORHEXIDINE GLUCONATE 2 % 1 PACK (2 CLOTHS) TOP SCH (04:00)
[2016-10-05] MEDS: INSULIN ASPART SUPPLEMENTAL SCALE SQ SCH ×4 (05:00→22:43)
--- NOTE | 2016-10-05 05:28 | RADRPT ---
EXAM DATE/TIME: 10/05/2016 04:21 [place] COMPARISON: CHEST SINGLE AP, October 03, 2016, 16:47. INDICATIONS : Shortness of breath, possible pulmonary disease. MEDICAL HISTORY : Renal calculi. SURGICAL HISTORY : External pelvic fixation. ENCOUNTER: Subsequent ACUITY: 4 - 6 days PAIN SCORE: Non-responsive. LOCATION: Bilateral chest FINDINGS: Right chest tube present without pneumothorax. Endotracheal tube, nasogastric tube in good position. Left central line in superior vena cava. Basilar airspace disease relatively stable since October 03. No pneumothorax. CONCLUSION: 1. Support apparatus unchanged. Left central line tip in superior vena cava. No pneumothorax. Stable basilar airspace disease. Jaun Clancy MD on October 05, 2016 at 5:26 Board Certified Radiologist. This report was verified electronically.
[2016-10-05] MEDS: QUEtiapine FUMARATE 100 MG TAB PO SCH ×3 (05:34→21:11)
[2016-10-05 05:47] LABS: BLOOD GAS BASE EXCESS 0.9 mmol/L (-2-2); BLOOD GAS CARBOXYHEMOGLOBIN 2.2 % (0-4); BLOOD GAS HCO3 25 mmol/L (22-26); BLOOD GAS METHEMOGLOBIN 0.9 % (0-2); BLOOD GAS O2 HGB SATURATION 91 % (90-100); BLOOD GAS OXYGEN CONTENT 10.9 Vol % (12.0-20.0); BLOOD GAS PCO2 44 mmHg (38-42); BLOOD GAS PO2 69 mmHg (61-120); BLOOD GAS TOTAL HGB 8.5 G/DL (12.0-16.0); CRITICAL VALUE NO; TEMP CORR TO 98.6
[2016-10-05 05:48] LABS: OXYGEN DEVICE VENTILATOR; VENT SETTINGS PRVC/AC
[2016-10-05 05:49] LABS: DRAW SITE LT RADIAL; FIO2 35 %; NUMBER OF ARTERIAL PUNCTURES 1; STAT NO; ULNAR PULSE PRESENT
[2016-10-05 06:01] LABS: AUTOMATED NEUTROPHIL # 7.5 TH/MM3 (1.8-7.7); BASOPHIL % 0.1 % (0.0-2.0); EOSINOPHIL # 0.5 TH/MM3 (0-0.4); EOSINOPHIL % 5.1 % (0.0-4.0); HEMO FLAGS DIFF FINAL; LYMPH % 7.6 % (9.0-44.0); LYMPHOCYTE # 0.7 TH/MM3 (1.0-4.8); MEAN CELL VOLUME 89.3 FL (80.0-100.0); MEAN CORPUSCULAR HEMOGLOBIN 30.2 PG (27.0-34.0); MEAN CORPUSCULAR HGB CONC 33.8 % (32.0-36.0); MONO % 5.7 % (0.0-8.0); NEUT % 81.5 % (16.0-70.0); PLATELET COUNT 179 TH/MM3 (150-450); RED BLOOD COUNT 2.68 MIL/MM3 (4.50-5.90); WHITE BLOOD COUNT 9.2 TH/MM3 (4.0-11.0)
[2016-10-05 06:35] LABS: ANION GAP 6 MEQ/L (5-15); AST (GOT) 42 U/L (15-37); BICARBONATE 27.9 MEQ/L (21.0-32.0); BLOOD UREA NITROGEN 16 MG/DL (7-18); CHLORIDE 109 MEQ/L (98-107); GLOMERULAR FILTRATION RATE 66 ML/MIN (>89); POTASSIUM 3.8 MEQ/L (3.5-5.1); SODIUM (NA) 143 MEQ/L (136-145)
[2016-10-05 06:40] LABS: ALKALINE PHOSPHATASE 91 U/L (45-117); ALT (GPT) 25 U/L (12-78); TOTAL BILIRUBIN ADULT 1.2 MG/DL (0.2-1.0)
--- NOTE | 2016-10-05 07:17 | PD.ORT.PN ---
Subjective Subjective Remarks POD 2 s/p ORIF pubic symphysis POD 2 s/p I&D with vac change right leg POD 7 s/p EXfix application of right tibia intubated/sedated. no changes Objective Vitals Vital Signs Date Time Temp Pulse Resp B/P (MAP) Pulse Ox O2 Delivery O2 Flow Rate FiO2 10/05/16 06:00 80 10/05/16 04:17 98 35 10/05/16 04:00 78 10/05/16 04:00 99.0 78 11 105/50 (68) 100 10/05/16 04:00 35 10/05/16 02:00 97 10/05/16 01:06 93 35 10/05/16 00:00 99.5 83 10 118/57 (77) 97 10/05/16 00:00 35 10/05/16 00:00 78 10/04/16 22:00 99 10/04/16 20:00 98.2 74 10 106/56 (73) 97 10/04/16 20:00 78 10/04/16 20:00 35 10/04/16 19:24 99 35 10/04/16 18:00 71 10/04/16 16:00 74 10/04/16 16:00 99.5 74 10 97/52 (67) 96 10/04/16 16:00 40 10/04/16 15:13 95 35 10/04/16 14:00 71 10/04/16 12:00 74 10/04/16 12:00 40 10/04/16 12:00 99.5 74 10 99/51 (67) 97 10/04/16 11:38 96 35 10/04/16 10:00 82 10/04/16 08:00 100.0 86 10 108/55 (72) 97 10/04/16 08:00 86 10/04/16 08:00 40 10/04/16 07:32 96 40 I/O 10/04/16 10/04/16 10/04/16 10/05/16 10/05/16 10/05/16 07:00 15:00 23:00 07:00 15:00 23:00 Intake Total 666 ml 600 ml 698 ml 989 ml Output Total 1610 ml 0 ml 1140.0 ml 1590 ml Balance -944 ml 600 ml -442.0 ml -601 ml IV Total 312 ml 600 ml 335 ml 650 ml Tube Feeding 234 ml 363 ml 279 ml Other 120 ml 60 ml Output Urine Total 1275 ml 1000 ml 1025 ml Stool Total 0 ml 0 ml Gastric Drainage Total 0 ml Tube Feeding Residual Discard 0 ml 0 ml 0 ml Chest Tube Drainage Total 150 ml 20 ml 175 ml Drainage Total 185 ml 120 ml 390 ml # Bowel Movements 2 Result Diagram: 10/05/16 0535 10/05/16 0535 Imaging Last 24 hours Impressions Chest X-Ray 09/29/16 0000 Signed Impressions: Service Date/Time: Thursday, September 29, 2016 04:45 - CONCLUSION: Endotracheal tube and left subclavian central line are in good position. Lungs are grossly clear. Dereck Hou MD Pelvis X-Ray 09/28/161638 Signed Impressions: Service Date/Time: September 16:24 - CONCLUSION: Diastasis symphysis pubis. Aleksandra Amin MD Maxillofacial CT 09/28/16 163 Signed Impressions: Service Date/Time: September 16:50 - CONCLUSION: Extensive fractures with complete dislocation of the left mandibular condyle displaced medial to mandibular body in addition to complex fractures of multiple bones. Aleksandra Amin MD Head CT 09/28/16 163 Signed Impressions: Service Date/Time: September 16:47 - CONCLUSION: There is no evidence of any significant hemorrhage or mass effect. Aleksandra Amin MD Chest X-Ray 09/28/161638 Signed Impressions: Service Date/Time: September 16:24 - CONCLUSION: No acute cardiopulmonary disease. Aleksandra Amin MD Chest CT 09/28/16 163 Signed Impressions: Service Date/Time: September 16:54 - CONCLUSION: Small right anterior pneumothorax. Aleksandra Amin MD Cervical Spine CT 09/28/161638 Signed Impressions: Service Date/Time: September 16:50 - CONCLUSION: Neural foramina compromise right C2-C3, right C3-C4, left C4-5, bilateral C5-C6 left C6-C7 and lateral recess compromise right C3-C4, left C4-5, right C5-C6. No thecal sac stenosis or fracture. Aleksandra Amin MD Abdomen/Pelvis CT 09/28/16 1639 Signed Impressions: Service Date/Time: September 16:56 - CONCLUSION: 1. Extraperitoneal hematoma behind the symphysis pubi and anterior to them. 2. Small right anterior pneumothorax. 3. Bilateral renal stones. Aleksandra Amin MD Objective Remarks RLE: +exfix. proximal pin sites with bloody drainage. remaining sites clean. + vac. good seal. running appropriately. moderate to severe swelling of thigh and lower leg. Pelvis:dressings clean and dry. intact. +drain. LLE: Mild swelling of ankle. No instability. No crepitus. Painful with range of motion, patient withdraws. No effusion of the left knee. RUE: No abnormal swelling of the wrist or elbow. Abrasion of the right shoulder. LUE: No abnormal swelling of the wrist or elbow. No swelling of the shoulder Assessment & Plan Assessment and Plan 1) Right Femoral Shaft Fx 2) Right Proximal Tibia Fracture 3) Disruption of Pubic Symphysis POD 2 s/p ORIF pubic symphysis POD 2 s/p I&D with vac change right leg POD 7 s/p EXfix application of right tibia PLAN: -maintain drain in pelvis. plan for DC drain POD 3.if drainage level acceptable. -begin daily dressing changes of pelvis -continue pin care BID of right leg -maintain wound vac right leg -plan for surgery sunday for right leg -sign consents -NPO after MN -hold lovenox after Thurs AM dose. Lloyd Rust Oct 05, 2016 07:17
[2016-10-05] MEDS: POLYETHYLENE GLYCOL 17 GM PKG PO SCH ×2 (09:00→21:11)
[2016-10-05] MEDS: DOCUSATE SODIUM 50 MG/SENNA 8.6 MG TAB NG SCH ×2 (09:00→21:11)
[2016-10-05] MEDS: BISACODYL 10 MG SUPP RECTAL SCH (09:00)
[2016-10-05] MEDS: LACTULOSE SYRUP 20 GM/30 ML CUP PO SCH ×2 (09:00→21:11)
[2016-10-05] MEDS: CHLORHEXIDINE 0.12% (ORAL KIT) 15 ML CUP MT SCH ×2 (09:39→20:50)
[2016-10-05] MEDS: FAMOTIDINE 20 MG TAB NG SCH ×2 (09:39→21:11)
[2016-10-05] MEDS: fentaNYL 2,500 MCG/NS 250 ML IV PRN ×2 (09:49→18:17)
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
[2016-10-05] MEDS ORDERED: ROCURONIUM INJ 50 MG/5 ML VIAL IV ONE ×2 (11:00→12:45)
--- NOTE | 2016-10-05 12:27 | PD.PLAS.PN ---
Subjective Remarks Patient was evaluated last week with regards to a laceration of the dorsal right wrist. He was sedated and was unable to participate in the exam. We return today for reevaluation. Objective Vital Signs Date Time Temp Pulse Resp B/P (MAP) Pulse Ox O2 Delivery O2 Flow Rate FiO2 10/05/16 12:04 98 35 10/05/16 08:00 95 10/05/16 08:00 99.3 72 10 111/57 (75) 100 10/05/16 07:22 97 35 10/05/16 06:00 80 10/05/16 04:17 98 35 10/05/16 04:00 78 10/05/16 04:00 99.0 78 11 105/50 (68) 100 10/05/16 04:00 35 10/05/16 02:00 97 10/05/16 01:06 93 35 10/05/16 00:00 99.5 83 10 118/57 (77) 97 10/05/16 00:00 35 10/05/16 00:00 78 10/04/16 22:00 99 10/04/16 20:00 98.2 74 10 106/56 (73) 97 10/04/16 20:00 78 10/04/16 20:00 35 10/04/16 19:24 99 35 10/04/16 18:00 71 10/04/16 16:00 74 10/04/16 16:00 99.5 74 10 97/52 (67) 96 10/04/16 16:00 40 10/04/16 15:13 95 35 10/04/16 14:00 71 I/O 10/04/16 10/04/16 10/04/16 10/05/16 10/05/16 10/05/16 07:00 15:00 23:00 07:00 15:00 23:00 Intake Total 666 ml 600 ml 698 ml 989 ml Output Total 1610 ml 0 ml 1140.0 ml 1590 ml Balance -944 ml 600 ml -442.0 ml -601 ml IV Total 312 ml 600 ml 335 ml 650 ml Tube Feeding 234 ml 363 ml 279 ml Other 120 ml 60 ml Output Urine Total 1275 ml 1000 ml 1025 ml Stool Total 0 ml 0 ml Gastric Drainage Total 0 ml Tube Feeding Residual Discard 0 ml 0 ml 0 ml Chest Tube Drainage Total 150 ml 20 ml 175 ml Drainage Total 185 ml 120 ml 390 ml # Bowel Movements 2 Laboratory Tests Test 10/05/16 05:27 10/05/16 05:35 Blood Gas Puncture Site LT RADIAL Blood Gas Patient Temperature 98.6 Blood Gas HCO3 25 Blood Gas Base Excess 0.9 Blood Gas Oxygen Saturation 91 Arterial Blood pH 7.38 Arterial Blood Partial Pressure CO2 44 Arterial Blood Partial Pressure O2 69 Arterial Blood Oxygen Content 10.9 Arterial Blood Carboxyhemoglobin 2.2 Arterial Blood Methemoglobin 0.9 Blood Gas Hemoglobin 8.5 Oxygen Delivery Device VENTILATOR Blood Gas Ventilator Setting PRVC/AC Blood Gas Inspired Oxygen 35 White Blood Count 9.2 Red Blood Count 2.68 Hemoglobin 8.1 Hematocrit 24.0 Mean Corpuscular Volume 89.3 Mean Corpuscular Hemoglobin 30.2 Mean Corpuscular Hemoglobin Concent 33.8 Red Cell Distribution Width 15.0 Platelet Count 179 Mean Platelet Volume 7.9 Neutrophils (%) (Auto) 81.5 Lymphocytes (%) (Auto) 7.6 Monocytes (%) (Auto) 5.7 Eosinophils (%) (Auto) 5.1 Basophils (%) (Auto) 0.1 Neutrophils # (Auto) 7.5 Lymphocytes # (Auto) 0.7 Monocytes # (Auto) 0.5 Eosinophils # (Auto) 0.5 Basophils # (Auto) 0.0 CBC Comment DIFF FINAL Differential Comment Blood Urea Nitrogen 16 Creatinine 1.16 Random Glucose 136 Total Protein 5.0 Albumin 1.5 Calcium Level 7.6 Alkaline Phosphatase 91 Aspartate Amino Transf (AST/SGOT) 42 Alanine Aminotransferase (ALT/SGPT) 25 Total Bilirubin 1.2 Sodium Level 143 Potassium Level 3.8 Chloride Level 109 Carbon Dioxide Level 27.9 Anion Gap 6 Estimat Glomerular Filtration Rate 66 Result Diagram: 10/05/16 0535 10/05/16 0535 Exam Findings Wound is healing well without evidence of infection. Patient remains intubated he responds to voice by opening his eyes, but does not respond to commands. Assessment and Plan Diagnosis: (1) Laceration of right wrist ICD Codes: S61.511A - Laceration without foreign body of right wrist, initial encounter Qualifiers: Qualified Codes: S61.511A - Laceration without foreign body of right wrist, initial encounter Plan: We remain unable to fully assess tendon injury of the right wrist. We' ll continue to monitor. Dea Dimas Oct 05, 2016 12:27
[2016-10-05] MEDS ORDERED: MIDAZOLAM HCL 5 MG/ML VIAL (1 ML) ONE (12:40)
[2016-10-05] MEDS ORDERED: MIDAZOLAM HCL 5 MG/ML VIAL (1 ML) IM ONE (12:45)
[2016-10-05] MEDS ORDERED: VECURONIUM BROMIDE 10 MG VIAL IV PUSH ONE (12:45)
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
--- NOTE | 2016-10-05 15:48 | PD.PROCEDR ---
Procedure Note Procedure DX: Respiratory Failure (J96.00) OP: Therapeutic Bronchoscopy (33430) Procedure: Time out. Through indwelling nasotracheal tube the airway was approached. Mechanical ventilation and ICU monitoring in place. The scope was passed to the secondary and tertiary segments and large amounts of thick secretions were removed from both side. The scope and tracheal tube were then slowly withdrawn to the level of the cricoid and used to assist percutaneous tracheostomy tube placement. Following trach insertion the scope was passed through the new trach tube to confirm position above the joseph. Ventilation was moved down to the new trach site and good return of tidal volumes was accomplished. Sats remained over 92% throughout the procedure. Varun Gaona MD Oct 05, 2016 15:47
[2016-10-05] MEDS: PROPOFOL 1000 MG/100 ML IV PRN ×2 (18:17→22:27)
[2016-10-06] VITALS (17 sets, daily range): BP systolic 92–144; BP diastolic 54–69; PULSE 66–134; RESP 16; TEMP 98.5–100.7; O2SAT 93–100
[2016-10-06] MEDS: CHLORHEXIDINE GLUCONATE 2 % 1 PACK (2 CLOTHS) TOP SCH (00:09)
[2016-10-06] MEDS: HALOPERIDOL LACTATE 5 MG/ML AMP IV PRN (02:15)
[2016-10-06 02:42] LABS: AUTOMATED NEUTROPHIL # 6.4 TH/MM3 (1.8-7.7); BASOPHIL % 0.6 % (0.0-2.0); EOSINOPHIL # 0.4 TH/MM3 (0-0.4); EOSINOPHIL % 5.4 % (0.0-4.0); HEMO FLAGS DIFF FINAL; LYMPH % 8.7 % (9.0-44.0); LYMPHOCYTE # 0.7 TH/MM3 (1.0-4.8); MEAN CELL VOLUME 88.2 FL (80.0-100.0); MEAN CORPUSCULAR HEMOGLOBIN 30.1 PG (27.0-34.0); MEAN CORPUSCULAR HGB CONC 34.1 % (32.0-36.0); MONO % 6.7 % (0.0-8.0); NEUT % 78.6 % (16.0-70.0); PLATELET COUNT 207 TH/MM3 (150-450); RED BLOOD COUNT 2.83 MIL/MM3 (4.50-5.90); WHITE BLOOD COUNT 8.2 TH/MM3 (4.0-11.0)
[2016-10-06 02:53] LABS: ALT (GPT) 22 U/L (12-78); ANION GAP 9 MEQ/L (5-15); AST (GOT) 38 U/L (15-37); BICARBONATE 27.2 MEQ/L (21.0-32.0); BLOOD UREA NITROGEN 17 MG/DL (7-18); CHLORIDE 108 MEQ/L (98-107); GLOMERULAR FILTRATION RATE 63 ML/MIN (>89); POTASSIUM 3.5 MEQ/L (3.5-5.1); SODIUM (NA) 144 MEQ/L (136-145)
[2016-10-06 02:55] LABS: ALKALINE PHOSPHATASE 106 U/L (45-117); TOTAL BILIRUBIN ADULT 2.1 MG/DL (0.2-1.0)
[2016-10-06 02:57] LABS: INTERNATIONAL NORMALIZED RATIO 0.9 RATIO
[2016-10-06] MEDS ORDERED: SODIUM CHLOR 0.9% 1000 ML INJ 1,000 ML IV ONE ×2 (03:00)
[2016-10-06] MEDS ORDERED: ESMOLOL HCL 100 MG/10 ML VIAL IV PUSH PRN (03:00)
[2016-10-06] MEDS ORDERED: ESMOLOL DRIP INJ PREMIX 250 ML IV PRN (03:00)
[2016-10-06] MEDS: ceFAZolin 2 GM PREMIX 50 ML IV SCH ×2 (04:37→17:34)
[2016-10-06] MEDS: POTASSIUM CHLOR 40 MEQ PREMIX 100 ML IV PRN (04:38)
[2016-10-06] MEDS ORDERED: AMIODARONE 150 MG/D5W 97 ML BOLUS 60 MINUTES IV ONE ×2 (04:45)
[2016-10-06] MEDS: INSULIN ASPART SUPPLEMENTAL SCALE SQ SCH ×4 (05:00→23:00)
[2016-10-06] MEDS: QUEtiapine FUMARATE 100 MG TAB PO SCH ×3 (05:15→20:49)
[2016-10-06] MEDS: AMIODARONE INJ 450 MG in D5W (EXCEL BAG) INJ 241 ML IV SCH ×3 (05:25→19:47)
[2016-10-06 06:31] LABS: MAGNESIUM 2.3 MG/DL (1.5-2.5)
[2016-10-06] MEDS: fentaNYL 2,500 MCG/NS 250 ML IV PRN ×2 (07:48→17:34)
[2016-10-06] MEDS: DOCUSATE SODIUM 50 MG/SENNA 8.6 MG TAB NG SCH ×2 (07:48→20:49)
[2016-10-06] MEDS: FAMOTIDINE 20 MG TAB NG SCH ×2 (07:48→20:49)
[2016-10-06] MEDS: PROPOFOL 1000 MG/100 ML IV PRN ×4 (07:49→19:23)
[2016-10-06] MEDS: CHLORHEXIDINE 0.12% (ORAL KIT) 15 ML CUP MT SCH ×2 (07:49→21:14)
[2016-10-06] MEDS ORDERED: ACETAMINOPHEN 1000 MG/100 ML 0 ML IV ONE (08:10)
[2016-10-06] MEDS: LACTATED RINGER'S 1000 ML INJ 1,000 ML IV SCH ×2 (08:19→14:12)
[2016-10-06] MEDS ORDERED: GENTAMICIN SULFATE 80 MG/2 ML VIAL ONE (08:23)
[2016-10-06] MEDS ORDERED: ceFAZolin INJ 1,000 MG VIAL ONE (08:23)
[2016-10-06] MEDS ORDERED: VANCOMYCIN HCL 1000 MG VIAL ONE (08:23)
[2016-10-06] MEDS: BISACODYL 10 MG SUPP RECTAL SCH (08:35)
[2016-10-06] MEDS: POLYETHYLENE GLYCOL 17 GM PKG PO SCH ×2 (08:35→20:50)
[2016-10-06] MEDS: LACTULOSE SYRUP 20 GM/30 ML CUP PO SCH ×2 (08:35→20:50)
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
[2016-10-06] MEDS ORDERED: PROPOFOL 200 MG/20 ML AMP IV ONE (12:00)
[2016-10-06] MEDS ORDERED: ONDANSETRON HCL 4 MG/2 ML VIAL IV PUSH ONE (12:00)
--- NOTE | 2016-10-06 12:02 | PD.OP ---
cc: Ki Yeboah MD Operative Report Date of Surgery: Oct 06, 2016 Preoperative Diagnosis: Comminuted right midshaft femur fracture, right tibial plateau fracture, comminuted right tibia shaft fracture Postoperative Diagnosis: Procedure: Removal of external fixation, intramedullary nail fixation right femoral shaft fracture, open reduction internal fixation bicondylar tibial plateau fracture, intramedullary nail fixation right tibia shaft fracture Surgeon: Ki Yeboah Ointment Mill Tender(s): ROMULO Mata PA-C The surgical procedure was assisted by my physician assistant corporation counsel. My P.A. presence was necessary throughout this case for the manipulation and positioning of the surgical extremity. My P.A. was assisting me throughout the duration of this procedure. The skill set of a physician assistant corporation counsel was medically necessary to complete this procedure. During the surgical case the surgical training specialist was working at the back table and the physician assistant corporation counsel was directly assisting me. Operation and Findings: Plan of activity: Nonweightbearing right lower extremity Patient was seen and evaluated preoperatively. He is well-known to me from previous surgeries. The risk and benefits of surgery were discussed in depth with the patients family to include bleeding, infection, nonunion, malunion, need for hip replacement, painful hardware, as well as medical competitions including blood clots, stroke, heart attack, and . Informed consent was obtained. Operative site was marked. Patient was brought to the operating room and placed on Fredrick table. IV sedation was administered by anesthesiologist. Timeout procedure was performed. IV antibiotics were given prior to incision. Procedure began with removal of external fixation. Clamps were loosened. Clamps and bars were now removed from the pins. The pins were now removed using a drill. Right Hip and leg were prepped with alcohol followed by Hibiclens and draped in the usual sterile fashion. Next attention was turned towards the right femur. Procedure began with reduction of fracture. Traction was applied. The leg was manipulated to achieve reduction. Excellent reduction was achieved. Fluoroscopy was used to confirm reduction. A two inch incision was made over the anterior knee. A medial arthrotomy was created. Guidepin was placed into the distal femur and advanced into the femoral canal. Fluoroscopy confirmed appropriate guidepin placement. A opening reamer was placed over the guidepin. A long ball tipped guide pin was now placed down the femoral canal into the center of the proximal femur. The nail length was now measured. Fluoroscopy confirmed appropriate guidepin placement. Flexible reamers were now passed over the guidepin to ream the intramedullary canal. The Synthes nail was attached to the insertion handle. Nail was now placed over the guidepin into the femoral canal. Fluoroscopy confirmed appropriate nail placement. A small percutaneous incisions were made over the lateral thigh. Cannulas were placed through the insertion handle down to the femur. Using the insertion handle as a guide the distal interlocking screw holes were predrilled and screw lengths were measured. Appropriate length screws was now placed. Next, using perfect [place] technique two proximal interlocking screws were placed. Screw holes were predrilled and screw lengths were measured. Final fluoroscopy revealed well aligned fracture with well-placed hardware. Incision was closed with 0 Vicryl, 3-0 Vicryl and [place]. Next attention was turned towards the tibial plateau. Because of patient's multiple traumatic lacerations per case technique was utilized. A periarticular clamp was used to help compress the medial and lateral tibial plateau fragments together. There are ticklish surface was relatively well reduced. Fractures were manipulated to achieve excellent alignment. At this point to previous incisions were made over the proximal lateral tibia. Two Synthes 5.0 screws were placed from lateral to medial. Good compression was obtained. Fluoroscopy confirmed well aligned joint surface. Next attention was turned towards the tibia shaft. Traction was applied. Fracture was reduced relatively well. There was severe comminution of the fracture along the metaphyseal region and proximal diaphyseal region. The fracture reduced and good alignment was achieved. Next a 3 cm incision was made proximal to the patella. Quadriceps tendon was split in line with fibers. Cannulas were placed in the patellofemoral joint to protect the articular surface at all times. A guidepin was placed into the tibia and advanced in the tibial canal. Fluoroscopy was used to confirm appropriate guidepin placement. An opening reamer was used to open the tibial canal. A ball-tipped guidewire was advanced down the tibial canal. Guidepin was passed across the fracture site into the center of the distal tibia. Fluoroscopy confirmed guidepin placement. The nail length was now measured. The fracture was now held in a reduced position and the canal was reamed. The canal was reamed up to size 11.5. A Synthes 10.5 tibial nail was now selected. Next the nail was fully seated. Using perfect [place] technique 2 distal interlocking screws were placed. Using the insertion handle as a guide 3 proximal interlocking screws were placed. Fluoroscopy confirmed excellent of fracture with well-placed hardware. Incisions and the knee joint were thoroughly irrigated with sterile saline. Fascia was closed with #1 Vicryl, subcutaneous tissues closed with 3-0 Vicryl and skin was closed with [place]. Sterile dressings were applied. Patient was transferred back to intensive care in stable condition. Ki Yeboah MD Oct 06, 2016 12:02
[2016-10-06] MEDS ORDERED: SODIUM CHLORIDE 0.9% FLUSH 5 ML FLUSH IVF PRN (12:15)
[2016-10-06] MEDS ORDERED: NALOXONE HCL 0.4 MG/ML AMP IV PRN (12:15)
[2016-10-06] MEDS: Post-op Orders (for Pharmacy) MISC XX ONE (12:35)
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
[2016-10-06] MEDS: ERGOCALCIFEROL (VIT D2) 50,000 UNIT CAP PO SCH (14:20)
[2016-10-06] MEDS: CALCIUM/VITAMIN D 250 MG/125 U TAB PO SCH ×2 (14:20→17:33)
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
--- NOTE | 2016-10-06 15:57 | RADRPT ---
EXAM DATE/TIME: 10/06/2016 10:55 [facility] COMPARISON: No previous studies available for comparison. INDICATIONS : Right tibial fracture. MEDICAL HISTORY : Fractured right femur, lower leg. SURGICAL HISTORY : ENCOUNTER: Subsequent ACUITY: 1 week PAIN SCORE: Non-responsive. LOCATION: Right lower leg FINDINGS: 7 magnified C-arm spot views are centered over the right lower leg. He show an intramedullary declan tra versing a highly comminuted proximal tibial fracture. Relatively good alignment is seen from an anato mical standpoint. A nondisplaced fracture involving the proximal fibula noted. CONCLUSION: Limited images as detailed above. Sami Xavier Jr., MD on October 06, 2016 at 15:55 Board Certified Radiologist. This report was verified electronically.
[2016-10-06] MEDS: DEXMEDETOMIDINE 200 MCG in NS 48 ML IV PRN (19:42)
--- NOTE | 2016-10-06 20:17 | EKG ---
Date Performed: 10/06/2016 Time Performed: 08:21:02 PTAGE: 51 years EKG: Sinus rhythm Non-specific ST/T wave changes Compared to the PREVIOUS TRACING , now in sinus rhythm DOCTOR: Israel Pérez Interpretating Date/Time 10/06/2016 20:16:35
[2016-10-06] MEDS: GENTAMICIN 80 MG PREMIX 100 ML IV SCH (20:50)
[2016-10-06] MEDS: SODIUM CHLORIDE 0.9% FLUSH 5 ML FLUSH IVF SCH (21:14)
[2016-10-07] VITALS (19 sets, daily range): BP systolic 121–202; BP diastolic 61–79; PULSE 63–107; RESP 14–18; TEMP 99.1–101.3; O2SAT 98–100
--- NOTE | 2016-10-07 00:31 | EKG ---
Date Performed: 10/06/2016 Time Performed: 02:33:52 PTAGE: 51 years EKG: Atrial fibrillation with uncontrolled ventricular response. Extensive ST-T changes may be d ue to myocardial ischemia Abnormal ECG PREVIOUS TRACING : 09/29/2016 01.52 Compared to the previous tracing, patient now in uncontrol ed Afib with ST/T wave changes which may be rate related DOCTOR: Israel Pérez Interpretating Date/Time 10/07/2016 00:29:08
[2016-10-07] MEDS: LACTATED RINGER'S 1000 ML INJ 1,000 ML IV SCH ×3 (00:32→22:00)
[2016-10-07] MEDS: DEXMEDETOMIDINE 200 MCG in NS 48 ML IV PRN ×3 (00:52→07:28)
[2016-10-07] MEDS: ceFAZolin 2 GM PREMIX 50 ML IV SCH ×3 (00:53→17:43)
[2016-10-07] MEDS: AMIODARONE INJ 450 MG in D5W (EXCEL BAG) INJ 241 ML IV SCH (02:10)
[2016-10-07] MEDS: GENTAMICIN 80 MG PREMIX 100 ML IV SCH ×3 (03:54→20:17)
[2016-10-07] MEDS: CHLORHEXIDINE GLUCONATE 2 % 1 PACK (2 CLOTHS) TOP SCH (03:58)
[2016-10-07] MEDS: INSULIN ASPART SUPPLEMENTAL SCALE SQ SCH (05:00)
[2016-10-07] MEDS: QUEtiapine FUMARATE 100 MG TAB PO SCH ×3 (05:59→20:17)
[2016-10-07 06:10] LABS: AUTOMATED NEUTROPHIL # 7.5 TH/MM3 (1.8-7.7); BASOPHIL % 0.3 % (0.0-2.0); EOSINOPHIL # 0.1 TH/MM3 (0-0.4); HEMATOCRIT 22.5 % (39.0-51.0); HEMO FLAGS DIFF FINAL; LYMPHOCYTE # 0.9 TH/MM3 (1.0-4.8); MEAN CELL VOLUME 87.7 FL (80.0-100.0); MEAN CORPUSCULAR HEMOGLOBIN 29.6 PG (27.0-34.0); MEAN CORPUSCULAR HGB CONC 33.8 % (32.0-36.0); MONO % 7.1 % (0.0-8.0); NEUT % 81.6 % (16.0-70.0); PLATELET COUNT 259 TH/MM3 (150-450); RED BLOOD COUNT 2.57 MIL/MM3 (4.50-5.90); WHITE BLOOD COUNT 9.1 TH/MM3 (4.0-11.0)
[2016-10-07] MEDS: ENOXAPARIN SODIUM 30 MG/0.3 ML SYRINGE SQ SCH ×2 (07:00→17:43)
[2016-10-07 07:14] LABS: BICARBONATE 26.5 MEQ/L (21.0-32.0); CALCIUM-PROTEIN CORRECTED 8.3 MG/DL (8.5-10.1); POTASSIUM 3.9 MEQ/L (3.5-5.1); TOTAL BILIRUBIN ADULT 1.5 MG/DL (0.2-1.0)
--- NOTE | 2016-10-07 07:47 | PD.ORT.PN ---
Subjective Subjective Remarks POD 4 s/p ORIF pubic symphysis POD 1 s/p removal of exfix with IMN right tibia and femur with application of incisional vac intubated/sedated. no changes Objective Vitals Vital Signs Date Time Temp Pulse Resp B/P (MAP) Pulse Ox O2 Delivery O2 Flow Rate FiO2 10/07/16 07:00 17 10/07/16 06:00 104 10/07/16 04:12 100 40 10/07/16 04:00 80 10/07/16 04:00 40 10/07/16 04:00 101.3 90 16 149/77 (101) 100 10/07/16 02:10 86 97/55 10/07/16 02:00 68 10/07/16 00:51 100 40 10/07/16 00:00 83 10/07/16 00:00 40 10/07/16 00:00 100.4 83 16 127/65 (85) 100 10/06/16 22:00 66 10/06/16 20:04 97 40 10/06/16 20:00 40 10/06/16 20:00 100.7 96 16 137/63 (87) 98 10/06/16 20:00 95 10/06/16 18:00 82 10/06/16 16:00 40 10/06/16 16:00 68 10/06/16 16:00 98.8 68 16 110/54 (72) 97 10/06/16 15:48 99 40 10/06/16 14:13 64 142/81 10/06/16 14:00 66 10/06/16 13:10 72 132/69 10/06/16 13:00 50 10/06/16 13:00 70 10/06/16 13:00 98.5 70 16 132/69 (90) 99 10/06/16 12:52 93 50 10/06/16 08:00 99.4 74 16 124/66 (85) 100 10/06/16 08:00 73 10/06/16 08:00 35 I/O 10/06/16 10/06/16 10/06/16 10/07/16 10/07/16 10/07/16 06:59 14:59 22:59 06:59 14:59 22:59 Intake Total 2378 ml 850 ml 1261 ml 1049 ml Output Total 1745 ml 515 ml 1680 ml 1442 ml Balance 633 ml 335 ml -419 ml -393 ml IV Total 2378 ml 250 ml 1201 ml 989 ml Tube Feeding 0 ml 0 ml Tube Irrigant 60 ml 60 ml Other 600 ml Output Urine Total 1600 ml 265 ml 1550 ml 1350 ml Chest Tube Drainage Total 50 ml 40 ml 12 ml Drainage Total 95 ml 90 ml 80 ml Estimated Blood Loss 250 ml # Bowel Movements 0 0 0 Result Diagram: 10/07/16 0544 10/07/16 0544 Imaging Last 24 hours Impressions Chest X-Ray 09/29/16 0000 Signed Impressions: Service Date/Time: Thursday, September 29, 2016 04:45 - CONCLUSION: Endotracheal tube and left subclavian central line are in good position. Lungs are grossly clear. Dereck Hou MD Pelvis X-Ray [id number]/28/[id number] Signed Impressions: Service Date/Time: September 16:24 - CONCLUSION: Diastasis symphysis pubis. Aleksandra Amin MD Maxillofacial CT [id number]/28/161638 Signed Impressions: Service Date/Time: September 16:50 - CONCLUSION: Extensive fractures with complete dislocation of the left mandibular condyle displaced medial to mandibular body in addition to complex fractures of multiple bones. Aleksandra Amin MD Head CT [id number]/28/161638 Signed Impressions: Service Date/Time: September 16:47 - CONCLUSION: There is no evidence of any significant hemorrhage or mass effect. Aleksandra Amin MD Chest X-Ray 09/28/161638 Signed Impressions: Service Date/Time: September 16:24 - CONCLUSION: No acute cardiopulmonary disease. Aleksandra Amin MD Chest CT 09/28/161638 Signed Impressions: Service Date/Time: September 16:54 - CONCLUSION: Small right anterior pneumothorax. Aleksandra Amin MD Cervical Spine CT [id number]/28/161638 Signed Impressions: Service Date/Time: September 16:50 - CONCLUSION: Neural foramina compromise right C2-C3, right C3-C4, left C4-5, bilateral C5-C6 left C6-C7 and lateral recess compromise right C3-C4, left C4-5, right C5-C6. No thecal sac stenosis or fracture. Aleksandra Amin MD Abdomen/Pelvis CT 09/28/16 1631 Signed Impressions: Service Date/Time: September 16:56 - CONCLUSION: 1. Extraperitoneal hematoma behind the symphysis pubi and anterior to them. 2. Small right anterior pneumothorax. 3. Bilateral renal stones. Aleksandra Amin MD Objective Remarks RLE: dressings clean and dry. intact. +vac., good seal. Pelvis:dressings clean and dry. intact. +drain. LLE: Mild swelling of ankle. No instability. No crepitus. Painful with range of motion, patient withdraws. No effusion of the left knee. RUE: No abnormal swelling of the wrist or elbow. Abrasion of the right shoulder. LUE: No abnormal swelling of the wrist or elbow. No swelling of the shoulder Assessment & Plan Assessment and Plan 1) Right Femoral Shaft Fx 2) Right Proximal Tibia Fracture 3) Disruption of Pubic Symphysis POD 1 s/p removal of exfix with IMN right femur and tibia and application of incisional vac POD 4 s/p ORIF pubic symphysis PLAN: -DC pelvic drain today -daily dressing changes of pelvis -maintain wound vac right leg -will plan for DC of incisional vac next week -NWB BLE -ortho surgeries complete at this point Lloyd Rust Oct 07, 2016 07:47
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
[2016-10-07] MEDS ORDERED: LABETALOL HCL 100 MG/20 ML VIAL IV PUSH PRN (08:45)
[2016-10-07] MEDS ORDERED: DEXMEDETOMIDINE INJ 200 MCG in SODIUM CHLORIDE 0.9% INJ 48 ML IV PRN (08:45)
[2016-10-07] MEDS ORDERED: SODIUM CHLOR 0.9% 250 ML INJ 250 ML IV ONE (08:45)
[2016-10-07] MEDS: BISACODYL 10 MG SUPP RECTAL SCH (09:00)
[2016-10-07] MEDS: LACTULOSE SYRUP 20 GM/30 ML CUP PO SCH ×2 (09:00→20:17)
[2016-10-07] MEDS: SODIUM CHLORIDE 0.9% FLUSH 5 ML FLUSH IVF SCH ×2 (09:00→20:18)
[2016-10-07] MEDS ORDERED: DEXMEDETOMIDINE HCL 200 MCG/2 ML VIAL ONE (09:04)
[2016-10-07] MEDS ORDERED: SODIUM CHLORIDE 0.9% INJ 50 ML ONE (09:04)
[2016-10-07] MEDS: CHOLECALCIFEROL (VIT D3) 1000 UNIT TAB PO SCH (09:35)
[2016-10-07] MEDS: DOCUSATE SODIUM 50 MG/SENNA 8.6 MG TAB NG SCH ×2 (09:35→20:17)
[2016-10-07] MEDS: POLYETHYLENE GLYCOL 17 GM PKG PO SCH ×2 (09:35→20:17)
[2016-10-07] MEDS: CHLORHEXIDINE 0.12% (ORAL KIT) 15 ML CUP MT SCH ×2 (09:36→20:11)
[2016-10-07] MEDS: hydrALAZINE HCL 20 MG/ML VIAL IV PUSH PRN (09:36)
[2016-10-07] MEDS: PROPRANOLOL HCL 10 MG TAB PO SCH ×3 (09:38→20:17)
[2016-10-07] MEDS: FAMOTIDINE 20 MG TAB NG SCH ×2 (09:38→20:17)
[2016-10-07] MEDS: DEXMEDETOMIDINE INJ 1,000 MCG in SODIUM CHLOR 0.9% 250 ML INJ 240 ML IV PRN ×2 (10:35→18:12)
[2016-10-07] MEDS: CALCIUM/VITAMIN D 250 MG/125 U TAB PO SCH ×3 (10:45→17:43)
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
[2016-10-07] MEDS: HYDROmorphone HCL PF 1 MG/ML VIAL IV PRN (21:20)
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
[2016-10-08] VITALS (23 sets, daily range): BP systolic 130–194; BP diastolic 68–102; PULSE 71–89; RESP 16–22; TEMP 99.4–102.3; O2SAT 93–100
[2016-10-08] MEDS: ONDANSETRON HCL 4 MG/2 ML VIAL IV PRN (00:33)
[2016-10-08] MEDS ORDERED: BACITRACIN TOP OINT 15 GM TUBE TOPICAL PRN (01:15)
[2016-10-08] MEDS: ceFAZolin 2 GM PREMIX 50 ML IV SCH ×2 (01:51→09:13)
[2016-10-08] MEDS: CHLORHEXIDINE GLUCONATE 2 % 1 PACK (2 CLOTHS) TOP SCH (03:08)
[2016-10-08] MEDS: GENTAMICIN 80 MG PREMIX 100 ML IV SCH ×2 (03:43→11:59)
[2016-10-08 05:52] LABS: BICARBONATE 21.8 MEQ/L (21.0-32.0); CALCIUM-PROTEIN CORRECTED 8.3 MG/DL (8.5-10.1); POTASSIUM 4.2 MEQ/L (3.5-5.1); TOTAL BILIRUBIN ADULT 2.1 MG/DL (0.2-1.0)
[2016-10-08] MEDS: QUEtiapine FUMARATE 100 MG TAB PO SCH ×3 (06:00→21:08)
[2016-10-08] MEDS: PROPRANOLOL HCL 10 MG TAB PO SCH ×3 (06:00→21:09)
--- NOTE | 2016-10-08 06:09 | RADRPT ---
EXAM DATE/TIME: 10/08/2016 04:46 [facility] COMPARISON: CHEST SINGLE AP, October 05, 2016, 4:21. INDICATIONS : Shortness of breath. MEDICAL HISTORY : Renal calculi. Pelvic fracture, Fractured right femur, lower leg. SURGICAL HISTORY : Pelvic external fixation ENCOUNTER: Subsequent ACUITY: 1 week PAIN SCORE: Non-responsive. LOCATION: Bilateral chest FINDINGS: Right-sided chest tube, nasogastric tube unchanged. Tracheostomy has been placed. Previous left centr al line has been removed. Bilateral mostly basilar airspace disease is similar to October 05. CONCLUSION: 1. One stable bilateral mostly basilar airspace disease. Tracheostomy in satisfactory position. Right chest tube and nasogastric tube present. Jaun Clancy MD on October 08, 2016 at 6:05 Board Certified Radiologist. This report was verified electronically.
[2016-10-08] MEDS: ENOXAPARIN SODIUM 30 MG/0.3 ML SYRINGE SQ SCH ×2 (06:54→18:12)
[2016-10-08] MEDS: DEXMEDETOMIDINE INJ 1,000 MCG in SODIUM CHLOR 0.9% 250 ML INJ 240 ML IV PRN ×3 (08:07→23:53)
[2016-10-08] MEDS: CALCIUM/VITAMIN D 250 MG/125 U TAB PO SCH ×3 (08:31→18:12)
[2016-10-08] MEDS: CHOLECALCIFEROL (VIT D3) 1000 UNIT TAB PO SCH (08:31)
[2016-10-08] MEDS: FAMOTIDINE 20 MG TAB NG SCH ×2 (08:31→21:09)
[2016-10-08] MEDS: POLYETHYLENE GLYCOL 17 GM PKG PO SCH ×2 (08:33→21:00)
[2016-10-08] MEDS: DOCUSATE SODIUM 50 MG/SENNA 8.6 MG TAB NG SCH ×2 (08:33→21:09)
[2016-10-08] MEDS: LACTULOSE SYRUP 20 GM/30 ML CUP PO SCH ×2 (08:33→21:00)
[2016-10-08] MEDS: SODIUM CHLORIDE 0.9% FLUSH 5 ML FLUSH IVF SCH ×2 (08:34→21:10)
[2016-10-08] MEDS: BISACODYL 10 MG SUPP RECTAL SCH (08:34)
[2016-10-08] MEDS: CHLORHEXIDINE 0.12% (ORAL KIT) 15 ML CUP MT SCH ×2 (08:35→21:09)
[2016-10-08] MEDS: hydrALAZINE HCL 20 MG/ML VIAL IV PUSH PRN ×2 (08:57→21:08)
[2016-10-08] MEDS ORDERED: ACETAMINOPHEN 1000 MG/100 ML VIAL IV ONE (09:00)
[2016-10-08 09:52] LABS: BASOPHIL % 0.2 % (0.0-2.0); EOSINOPHIL # 0.2 TH/MM3 (0-0.4); EOSINOPHIL % 1.3 % (0.0-4.0); HEMATOCRIT 25.9 % (39.0-51.0); HEMO FLAGS DIFF FINAL; LYMPH % 7.8 % (9.0-44.0); LYMPHOCYTE # 0.9 TH/MM3 (1.0-4.8); MEAN CELL VOLUME 86.3 FL (80.0-100.0); MEAN CORPUSCULAR HEMOGLOBIN 28.7 PG (27.0-34.0); MEAN CORPUSCULAR HGB CONC 33.3 % (32.0-36.0); MONO % 7.7 % (0.0-8.0); PLATELET COUNT 323 TH/MM3 (150-450); RED CELL DISTRIBUTION WIDTH 15.1 % (11.6-17.2); WHITE BLOOD COUNT 12.1 TH/MM3 (4.0-11.0)
--- NOTE | 2016-10-08 10:08 | RADRPT ---
EXAM DATE/TIME: 10/08/2016 09:33 [facility] COMPARISON: ABDOMEN SINGLE VIEW, September 30, 2016, 17:44. INDICATIONS : Evaluate distension MEDICAL HISTORY : Renal calculi.Pelvic fracture, Fractured right femur, lower leg. SURGICAL HISTORY : ENCOUNTER: Subsequent ACUITY: 1 week PAIN SCORE: Non-responsive. LOCATION: Abdomen FINDINGS: There are dilated loops of bowel overlying the abdomen which have the appearance of dilated large bow el. There are also dilated loops of small intestine. The possibility of bowel obstruction should be c onsidered. An ileus may also have this appearance. NG tube in satisfactory position. CONCLUSION: Abnormal dilated loops of small and large bowel may indicate an obstruction versus an ileus. German Rinaldi MD on October 08, 2016 at 10:05 Board Certified Radiologist. This report was verified electronically.
[2016-10-08 10:23] LABS: BLOOD, URINE LARGE (NEG); COMMENT (UR) CULT NOT INDICATED; CULTURE IF INDICATED CULT NOT INDICATED; GLUCOSE,URINE NEG (NEG); KETONE, URINE 10 mg/dL (NEG); MUCUS URINE FEW /lpf (OCC); NITRITE,URINE NEG (NEG); URINE COLOR DARK-YELLOW (YELLW/STRAW)
--- NOTE | 2016-10-08 10:48 | RADRPT ---
EXAM DATE/TIME: 10/08/2016 10:09 [facility] COMPARISON: No previous studies available for comparison. INDICATIONS : Increased lab values. MEDICAL HISTORY : Mandible fracture. Kidney stones. Unable to obtain further information. SURGICAL HISTORY : Right tibia surgery. Unable to obtain further information. ENCOUNTER: Initial ACUITY: 1 day PAIN SCORE: Nonresponsive. LOCATION: Right upper quadrant MEASUREMENTS: LIVER: 16.1 cm length COMMON DUCT: 5 mm RIGHT KIDNEY: 12.5 x 4.8 x 5.0 cm FINDINGS: LIVER: Normal echotexture without focal lesion or ductal dilatation. There is a small amount of perihepatic free fluid identified. COMMON DUCT: No intraluminal mass or stone visualized. GALLBLADDER: There is slight gallbladder wall thickening up to 3.2 mm. There are no stones seen. PANCREAS: Not visualized. RIGHT KIDNEY: No evidence of hydronephrosis, stone, or mass. CONCLUSION: 1. Ascites and slight gallbladder wall thickening. No stones are present. German Rinaldi MD on October 08, 2016 at 10:45 Board Certified Radiologist. This report was verified electronically.
[2016-10-08] MEDS: VANCOMYCIN INJ 1,000 MG in SODIUM CHLOR 0.9% 250 ML INJ 250 ML IV SCH ×2 (11:04→22:22)
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
[2016-10-08] MEDS ORDERED: Lactulose Liq PO (12:24)
[2016-10-08] MEDS ORDERED: BISA10R RECTAL (12:24)
[2016-10-08] MEDS ORDERED: POLY17S PO (12:24)
[2016-10-08] MEDS ORDERED: MAGN400S PO (12:24)
[2016-10-08] MEDS ORDERED: SENN1TAB NG (12:24)
[2016-10-08] MEDS: LACTATED RINGER'S 1000 ML INJ 1,000 ML IV SCH (13:19)
[2016-10-08] MEDS: HYDROmorphone HCL PF 1 MG/ML VIAL IV PRN ×2 (13:19→23:04)
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
[2016-10-08] MEDS: ACETAMINOPHEN 325 MG TAB NG PRN (21:12)
[2016-10-08] MEDS: HALOPERIDOL LACTATE 5 MG/ML AMP IV PRN (23:13)
[2016-10-09] VITALS (17 sets, daily range): BP systolic 107–153; BP diastolic 52–79; PULSE 65–84; RESP 14–24; TEMP 98.9–101.6; O2SAT 96–100
[2016-10-09] MEDS: CHLORHEXIDINE GLUCONATE 2 % 1 PACK (2 CLOTHS) TOP SCH (04:00)
[2016-10-09] MEDS: LACTATED RINGER'S 1000 ML INJ 1,000 ML IV SCH ×2 (05:10→15:02)
[2016-10-09] MEDS: PROPRANOLOL HCL 10 MG TAB PO SCH ×3 (05:49→20:52)
[2016-10-09] MEDS: ACETAMINOPHEN 325 MG TAB NG PRN (05:49)
[2016-10-09] MEDS: QUEtiapine FUMARATE 100 MG TAB PO SCH ×4 (05:49→20:52)
[2016-10-09] MEDS: ENOXAPARIN SODIUM 30 MG/0.3 ML SYRINGE SQ SCH ×2 (06:35→20:53)
[2016-10-09] MEDS: SODIUM CHLORIDE 0.9% FLUSH 5 ML FLUSH IVF SCH ×2 (07:20→20:53)
--- NOTE | 2016-10-09 08:11 | PD.ORT.PN ---
Subjective Subjective Remarks POD 6 s/p ORIF pubic symphysis POD 3 s/p removal of exfix with IMN right tibia and femur with application of incisional vac intubated/sedated. no changes Objective Vitals Vital Signs Date Time Temp Pulse Resp B/P (MAP) Pulse Ox O2 Delivery O2 Flow Rate FiO2 10/09/16 07:31 30 10/09/16 07:31 99 30 10/09/16 06:49 17 10/09/16 06:00 82 10/09/16 04:43 97 30 10/09/16 04:42 20 10/09/16 04:00 79 10/09/16 04:00 101.6 79 21 153/79 (103) 100 10/09/16 04:00 30 10/09/16 02:00 79 10/09/16 01:30 99 30 10/09/16 00:00 30 10/09/16 00:00 79 10/09/16 00:00 100.5 79 18 126/60 (82) 98 10/08/16 23:34 16 10/08/16 23:15 97 30 10/08/16 22:40 98 30 10/08/16 22:00 89 10/08/16 20:00 100.3 75 22 162/78 (106) 98 10/08/16 20:00 75 10/08/16 20:00 35 10/08/16 19:42 98 T-piece 5.00 28 10/08/16 18:00 71 10/08/16 16:19 98 T-piece 6.00 35 10/08/16 16:00 35 10/08/16 16:00 99.5 72 16 130/68 (88) 99 10/08/16 16:00 72 10/08/16 15:45 98 30 10/08/16 14:00 74 10/08/16 12:00 30 10/08/16 12:00 100.0 76 21 159/72 (101) 95 10/08/16 12:00 76 10/08/16 11:45 93 30 10/08/16 10:00 82 10/08/16 08:00 82 10/08/16 08:00 30 10/08/16 08:00 102.3 84 17 164/74 (104) 99 I/O 9/3/10/08/16 10/08/16 10/09/16 10/09/16 10/09/16 07:00 15:00 23:00 07:00 15:00 23:00 Intake Total 1656 ml 1652 ml 1805 ml 3340 ml Output Total 1345 ml 2780 ml 1950 ml Balance 311 ml 1652 ml -975 ml 1390 ml IV Total 1228 ml 1652 ml 1685 ml 3340 ml Tube Feeding 428 ml Tube Irrigant 120 ml Output Urine Total 1250 ml 1100 ml 1350 ml Stool Total 1000 ml Gastric Drainage Total 600 ml 500 ml Chest Tube Drainage Total 70 ml 30 ml 100 ml Drainage Total 25 ml 50 ml 0 ml # Bowel Movements 2 3 0 Result Diagram: 10/08/16 0920 10/08/16 0515 Imaging Last 24 hours Impressions Chest X-Ray 09/29/16 0000 Signed Impressions: Service Date/Time: Thursday, September 29, 2016 04:45 - CONCLUSION: Endotracheal tube and left subclavian central line are in good position. Lungs are grossly clear. Dereck Hou MD Pelvis X-Ray 09/28/161638 Signed Impressions: Service Date/Time: September 16:24 - CONCLUSION: Diastasis symphysis pubis. Aleksandra Amin MD Maxillofacial CT 09/28/161638 Signed Impressions: Service Date/Time: September 16:50 - CONCLUSION: Extensive fractures with complete dislocation of the left mandibular condyle displaced medial to mandibular body in addition to complex fractures of multiple bones. Aleksandra Amin MD Head CT 09/28/161638 Signed Impressions: Service Date/Time: September 16:47 - CONCLUSION: There is no evidence of any significant hemorrhage or mass effect. Aleksandra Amin MD Chest X-Ray 09/28/16 163 Signed Impressions: Service Date/Time: September 16:24 - CONCLUSION: No acute cardiopulmonary disease. Aleksandra Amin MD Chest CT 09/28/16 163 Signed Impressions: Service Date/Time: September 16:54 - CONCLUSION: Small right anterior pneumothorax. Aleksandra Amin MD Cervical Spine CT 09/28/169 Signed Impressions: Service Date/Time: September 16:50 - CONCLUSION: Neural foramina compromise right C2-C3, right C3-C4, left C4-5, bilateral C5-C6 left C6-C7 and lateral recess compromise right C3-C4, left C4-5, right C5-C6. No thecal sac stenosis or fracture. Aleksandra Amin MD Abdomen/Pelvis CT 09/28/16 1639 Signed Impressions: Service Date/Time: September 16:56 - CONCLUSION: 1. Extraperitoneal hematoma behind the symphysis pubi and anterior to them. 2. Small right anterior pneumothorax. 3. Bilateral renal stones. Aleksandra Amin MD Objective Remarks RLE: dressings clean and dry. intact. +vac., good seal. vac removed at bedside. incision visualized. clean. minimal drainage. no erythema. Pelvis:dressings clean and dry. intact. +drain. LLE: Mild swelling of ankle. No instability. No crepitus. Painful with range of motion, patient withdraws. No effusion of the left knee. RUE: No abnormal swelling of the wrist or elbow. Abrasion of the right shoulder. LUE: No abnormal swelling of the wrist or elbow. No swelling of the shoulder Assessment & Plan Assessment and Plan 1) Right Femoral Shaft Fx 2) Right Proximal Tibia Fracture 3) Disruption of Pubic Symphysis POD 3 s/p removal of exfix with IMN right femur and tibia and application of incisional vac POD 6 s/p ORIF pubic symphysis PLAN: -right leg vac DCd today at bedside -daily dressing changes of right femur/tibia with xeroform/4x4/EUGENIO -daily dressing changes of pelvis with xeroform/primapore -NWB BLE -ortho surgeries complete at this point Lloyd Rust Oct 09, 2016 08:11
[2016-10-09] MEDS ORDERED: QUEtiapine FUMARATE 200 MG TAB PO SCH (09:00)
[2016-10-09] MEDS: POLYETHYLENE GLYCOL 17 GM PKG PO SCH ×2 (09:06→20:53)
[2016-10-09] MEDS: DOCUSATE SODIUM 50 MG/SENNA 8.6 MG TAB NG SCH ×2 (09:06→20:53)
[2016-10-09] MEDS: LACTULOSE SYRUP 20 GM/30 ML CUP PO SCH ×2 (09:06→20:52)
[2016-10-09] MEDS: FAMOTIDINE 20 MG TAB NG SCH ×2 (09:06→20:52)
[2016-10-09] MEDS: BISACODYL 10 MG SUPP RECTAL SCH (09:06)
[2016-10-09] MEDS: CHOLECALCIFEROL (VIT D3) 1000 UNIT TAB PO SCH (09:06)
[2016-10-09] MEDS: CALCIUM/VITAMIN D 250 MG/125 U TAB PO SCH ×3 (09:06→18:00)
[2016-10-09] MEDS: CHLORHEXIDINE 0.12% (ORAL KIT) 15 ML CUP MT SCH ×2 (09:06→20:53)
[2016-10-09] MEDS: VANCOMYCIN INJ 1,000 MG in SODIUM CHLOR 0.9% 250 ML INJ 250 ML IV SCH ×2 (10:17→23:16)
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
[2016-10-09] MEDS ORDERED: CEFEPIME INJ 2,000 MG in SODIUM CHLORIDE 0.9% INJ 100 ML IV SCH (11:00)
--- NOTE | 2016-10-09 11:19 | RADRPT ---
EXAM DATE/TIME: 10/09/2016 09:55 [facility] COMPARISON: CHEST SINGLE AP, October 08, 2016, 4:46. INDICATIONS : Short of breath. MEDICAL HISTORY : Renal calculi.Pelvic fracture, Fractured right femur, lower leg. SURGICAL HISTORY : None. ENCOUNTER: Subsequent ACUITY: 2 weeks PAIN SCORE: Non-responsive. LOCATION: Bilateral chest FINDINGS: Tracheostomy tube and enteric tube identified. Cardiomegaly. Linear subsegmental atelectatic changes are noted at the left and right lung bases. A right-sided chest tube present. I do not see a pneumoth orax. CONCLUSION: No significant change has occurred. German Rinaldi MD on October 09, 2016 at 11:16 Board Certified Radiologist. This report was verified electronically.
--- NOTE | 2016-10-09 11:19 | RADRPT ---
EXAM DATE/TIME: 10/09/2016 09:57 [facility] COMPARISON: No previous studies available for comparison. INDICATIONS : Rule out ileus MEDICAL HISTORY : Renal calculi.Pelvic fracture, Fractured right femur, lower leg. SURGICAL HISTORY : None. ENCOUNTER: Subsequent ACUITY: 2 weeks PAIN SCORE: Non-responsive. LOCATION: Bilateral Abdomen FINDINGS: Skin [place] and plate and screw fixation hardware noted in the pelvis overlying the pubic symphysis. Enteric tube is noted and the tip terminates in the stomach region. There is mild diffuse gaseous di stention of small and large bowel. An ileus pattern is suspected. CONCLUSION: Bowel gas pattern felt to represent an ileus. German Rinaldi MD on October 09, 2016 at 11:17 Board Certified Radiologist. This report was verified electronically.
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
[2016-10-09 13:22] LABS: AUTOMATED NEUTROPHIL # 7.9 TH/MM3 (1.8-7.7); BASOPHIL % 0.4 % (0.0-2.0); EOSINOPHIL # 0.2 TH/MM3 (0-0.4); EOSINOPHIL % 2.2 % (0.0-4.0); HEMATOCRIT 24.3 % (39.0-51.0); HEMO FLAGS DIFF FINAL; LYMPH % 11.2 % (9.0-44.0); LYMPHOCYTE # 1.2 TH/MM3 (1.0-4.8); MEAN CELL VOLUME 88.1 FL (80.0-100.0); MEAN CORPUSCULAR HEMOGLOBIN 31.3 PG (27.0-34.0); MEAN CORPUSCULAR HGB CONC 35.5 % (32.0-36.0); MONO % 10.1 % (0.0-8.0); NEUT % 76.1 % (16.0-70.0); PLATELET COUNT 274 TH/MM3 (150-450); RED BLOOD COUNT 2.76 MIL/MM3 (4.50-5.90); RED CELL DISTRIBUTION WIDTH 15.4 % (11.6-17.2); WHITE BLOOD COUNT 10.4 TH/MM3 (4.0-11.0)
[2016-10-09 13:52] LABS: ALKALINE PHOSPHATASE 110 U/L (45-117); ALT (GPT) 27 U/L (12-78); ANION GAP 7 MEQ/L (5-15); AST (GOT) 53 U/L (15-37); BICARBONATE 27.6 MEQ/L (21.0-32.0); BLOOD UREA NITROGEN 27 MG/DL (7-18); CHLORIDE 106 MEQ/L (98-107); GLOMERULAR FILTRATION RATE 63 ML/MIN (>89); POTASSIUM 3.3 MEQ/L (3.5-5.1); SODIUM (NA) 141 MEQ/L (136-145); TOTAL BILIRUBIN ADULT 2.3 MG/DL (0.2-1.0)
[2016-10-09] MEDS: AZTREONAM INJ 1,000 MG in SODIUM CHLORIDE 0.9% INJ 100 ML IV SCH ×2 (14:31→20:52)
[2016-10-09] MEDS: DEXMEDETOMIDINE INJ 1,000 MCG in SODIUM CHLOR 0.9% 250 ML INJ 240 ML IV PRN (16:01)
[2016-10-09] MEDS: HYDROmorphone HCL PF 1 MG/ML VIAL IV PRN (21:29)
[2016-10-09] MEDS: ONDANSETRON HCL 4 MG/2 ML VIAL IV PRN (21:29)
[2016-10-10] VITALS (17 sets, daily range): BP systolic 125–187; BP diastolic 60–81; PULSE 76–100; RESP 15–22; TEMP 99.2–101; O2SAT 95–100
[2016-10-10] MEDS: ACETAMINOPHEN 325 MG TAB NG PRN (00:14)
[2016-10-10] MEDS: HYDROmorphone HCL PF 1 MG/ML VIAL IV PRN ×6 (00:59→20:49)
[2016-10-10] MEDS: DEXMEDETOMIDINE INJ 1,000 MCG in SODIUM CHLOR 0.9% 250 ML INJ 240 ML IV PRN ×2 (03:14→21:40)
[2016-10-10] MEDS: LACTATED RINGER'S 1000 ML INJ 1,000 ML IV SCH ×2 (03:32→16:10)
[2016-10-10] MEDS: CHLORHEXIDINE GLUCONATE 2 % 1 PACK (2 CLOTHS) TOP SCH (03:38)
[2016-10-10 05:14] LABS: BICARBONATE 26.6 MEQ/L (21.0-32.0); CALCIUM-PROTEIN CORRECTED 8.3 MG/DL (8.5-10.1); POTASSIUM 3.4 MEQ/L (3.5-5.1); TOTAL BILIRUBIN ADULT 1.3 MG/DL (0.2-1.0)
[2016-10-10 05:33] LABS: BASOPHIL % 0.5 % (0.0-2.0); EOSINOPHIL # 0.3 TH/MM3 (0-0.4); EOSINOPHIL % 3.3 % (0.0-4.0); HEMATOCRIT 25.7 % (39.0-51.0); HEMO FLAGS DIFF FINAL; LYMPH % 14.6 % (9.0-44.0); LYMPHOCYTE # 1.3 TH/MM3 (1.0-4.8); MEAN CORPUSCULAR HEMOGLOBIN 29.6 PG (27.0-34.0); MEAN CORPUSCULAR HGB CONC 33.7 % (32.0-36.0); MONO % 12.8 % (0.0-8.0); NEUT % 68.8 % (16.0-70.0); PLATELET COUNT 299 TH/MM3 (150-450); RED BLOOD COUNT 2.92 MIL/MM3 (4.50-5.90); RED CELL DISTRIBUTION WIDTH 15.1 % (11.6-17.2); WHITE BLOOD COUNT 8.7 TH/MM3 (4.0-11.0)
[2016-10-10] MEDS: AZTREONAM INJ 1,000 MG in SODIUM CHLORIDE 0.9% INJ 100 ML IV SCH ×3 (06:00→21:38)
[2016-10-10] MEDS: PROPRANOLOL HCL 10 MG TAB PO SCH ×3 (06:00→22:00)
--- NOTE | 2016-10-10 06:13 | RADRPT ---
EXAM DATE/TIME: 10/10/2016 04:38 [facility] COMPARISON: CHEST SINGLE AP, October 09, 2016, 9:55. INDICATIONS : Short of breath. MEDICAL HISTORY : None. SURGICAL HISTORY : None. ENCOUNTER: Subsequent ACUITY: 2 weeks PAIN SCORE: 0/10 LOCATION: Bilateral chest FINDINGS: Stable tracheostomy, NGT, and right sided apical chest tube. No pneumothorax. Stable bilateral lower lobe airspace disease. Cardiomediastinal contours are stable. Remainder of the exam is unchanged. CONCLUSION: 1. Stable tubes and lines, as above. 2. Stable bilateral lower lobe airspace disease. 3. No significant interval change. Kimani Banerjee MD on October 10, 2016 at 6:10 Board Certified Radiologist. This report was verified electronically.
--- NOTE | 2016-10-10 07:11 | PD.ORT.PN ---
Subjective Subjective Remarks POD 7 s/p ORIF pubic symphysis POD 4 s/p removal of exfix with IMN right tibia and femur with application of incisional vac trached/sedated. no changes Objective Vitals Vital Signs Date Time Temp Pulse Resp B/P (MAP) Pulse Ox O2 Delivery O2 Flow Rate FiO2 10/10/16 06:00 83 10/10/16 05:07 24 10/10/16 04:15 100 30 10/10/16 04:00 99.2 80 17 125/60 (81) 99 10/10/16 04:00 86 10/10/16 04:00 35 10/10/16 02:13 15 10/10/16 02:00 76 10/10/16 01:11 20 10/10/16 00:10 100 30 10/10/16 00:00 101.0 82 22 144/68 (93) 98 10/10/16 00:00 82 10/10/16 00:00 35 10/09/16 22:00 72 10/09/16 20:47 98 30 10/09/16 20:00 100.7 77 22 140/68 (92) 98 10/09/16 20:00 35 10/09/16 20:00 70 10/09/16 18:00 76 10/09/16 16:00 35 10/09/16 16:00 81 10/09/16 16:00 99.0 84 24 145/71 (95) 96 10/09/16 14:00 81 10/09/16 12:00 70 10/09/16 12:00 100 T-piece 7.00 35 10/09/16 12:00 99.0 69 23 107/52 (70) 100 10/09/16 12:00 35 10/09/16 11:22 97 30 10/09/16 10:00 69 10/09/16 08:00 30 10/09/16 08:00 65 10/09/16 08:00 98.9 65 14 107/52 (70) 100 10/09/16 07:31 30 10/09/16 07:31 99 30 I/O 10/09/16 10/09/16 10/09/16 10/10/16 10/10/16 10/10/16 07:00 15:00 23:00 07:00 15:00 23:00 Intake Total 3340 ml 1263 ml 3463 ml Output Total 1950 ml 1500 ml 1480 ml Balance 1390 ml -237 ml 1983 ml IV Total 3340 ml 1263 ml 3463 ml Output Urine Total 1350 ml 1100 ml 1200 ml Gastric Drainage Total 500 ml 300 ml 200 ml Chest Tube Drainage Total 100 ml 100 ml 80 ml Drainage Total 0 ml # Bowel Movements 0 1 1 Result Diagram: 10/10/16 0420 10/10/16 0420 Imaging Last 24 hours Impressions Chest X-Ray 09/29/16 0000 Signed Impressions: Service Date/Time: Thursday, September 29, 2016 04:45 - CONCLUSION: Endotracheal tube and left subclavian central line are in good position. Lungs are grossly clear. Dereck Hou MD Pelvis X-Ray 09/28/161638 Signed Impressions: Service Date/Time: September 16:24 - CONCLUSION: Diastasis symphysis pubis. Aleksandra Amin MD Maxillofacial CT 09/28/161638 Signed Impressions: Service Date/Time: September 16:50 - CONCLUSION: Extensive fractures with complete dislocation of the left mandibular condyle displaced medial to mandibular body in addition to complex fractures of multiple bones. Aleksandra Amin MD Head CT 09/28/161638 Signed Impressions: Service Date/Time: September 16:47 - CONCLUSION: There is no evidence of any significant hemorrhage or mass effect. Aleksandra Amin MD Chest X-Ray 09/28/161638 Signed Impressions: Service Date/Time: September 16:24 - CONCLUSION: No acute cardiopulmonary disease. Aleksandra Amin MD Chest CT 09/28/16 163 Signed Impressions: Service Date/Time: September 16:54 - CONCLUSION: Small right anterior pneumothorax. Aleksandra Amin MD Cervical Spine CT 09/28/161638 Signed Impressions: Service Date/Time: September 16:50 - CONCLUSION: Neural foramina compromise right C2-C3, right C3-C4, left C4-5, bilateral C5-C6 left C6-C7 and lateral recess compromise right C3-C4, left C4-5, right C5-C6. No thecal sac stenosis or fracture. Aleksandra Amin MD Abdomen/Pelvis CT 09/28/16 1639 Signed Impressions: Service Date/Time: September 16:56 - CONCLUSION: 1. Extraperitoneal hematoma behind the symphysis pubi and anterior to them. 2. Small right anterior pneumothorax. 3. Bilateral renal stones. Aleksandra Amin MD Objective Remarks RLE: dressings clean and dry. intact. Pelvis:dressings clean and dry. intact. +drain. LLE: Mild swelling of ankle. No instability. No crepitus. Painful with range of motion, patient withdraws. No effusion of the left knee. RUE: No abnormal swelling of the wrist or elbow. Abrasion of the right shoulder. LUE: No abnormal swelling of the wrist or elbow. No swelling of the shoulder Assessment & Plan Assessment and Plan 1) Right Femoral Shaft Fx 2) Right Proximal Tibia Fracture 3) Disruption of Pubic Symphysis POD 4 s/p removal of exfix with IMN right femur and tibia and application of incisional vac POD 7 s/p ORIF pubic symphysis PLAN: -daily dressing changes of right femur/tibia with xeroform/4x4/EUGENIO -daily dressing changes of pelvis with xeroform/primapore -NWB BLE -ortho surgeries complete at this point Llody Rust Oct 10, 2016 07:11
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
[2016-10-10] MEDS: ENOXAPARIN SODIUM 30 MG/0.3 ML SYRINGE SQ SCH ×2 (08:27→19:00)
[2016-10-10] MEDS: CHOLECALCIFEROL (VIT D3) 1000 UNIT TAB PO SCH (08:27)
[2016-10-10] MEDS: CALCIUM/VITAMIN D 250 MG/125 U TAB PO SCH ×3 (08:27→17:39)
[2016-10-10] MEDS: SODIUM CHLORIDE 0.9% FLUSH 5 ML FLUSH IVF SCH ×2 (08:27→21:00)
[2016-10-10] MEDS: QUEtiapine FUMARATE 100 MG TAB PO SCH ×3 (08:27→21:00)
[2016-10-10] MEDS: FAMOTIDINE 20 MG TAB NG SCH ×2 (08:27→21:00)
[2016-10-10] MEDS: CHLORHEXIDINE 0.12% (ORAL KIT) 15 ML CUP MT SCH ×2 (08:27→20:00)
[2016-10-10] MEDS: POLYETHYLENE GLYCOL 17 GM PKG PO SCH ×2 (08:28→21:00)
[2016-10-10] MEDS: LACTULOSE SYRUP 20 GM/30 ML CUP PO SCH ×2 (08:28→21:00)
[2016-10-10] MEDS: BISACODYL 10 MG SUPP RECTAL SCH (08:28)
[2016-10-10] MEDS: DOCUSATE SODIUM 50 MG/SENNA 8.6 MG TAB NG SCH ×2 (08:28→21:00)
[2016-10-10] MEDS: VANCOMYCIN INJ 1,000 MG in SODIUM CHLOR 0.9% 250 ML INJ 250 ML IV SCH ×2 (10:09→21:39)
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
[2016-10-10] MEDS ORDERED: HALOPERIDOL LACTATE 5 MG/ML AMP IV PRN (19:30)
[2016-10-10] MEDS: ONDANSETRON HCL 4 MG/2 ML VIAL IV PRN (20:48)
[2016-10-11] VITALS (18 sets, daily range): BP systolic 93–139; BP diastolic 51–79; PULSE 54–86; RESP 16–22; TEMP 98.2–99.3; O2SAT 94–100
[2016-10-11] MEDS: HYDROmorphone HCL PF 1 MG/ML VIAL IV PRN ×3 (01:24→21:07)
[2016-10-11] MEDS: CHLORHEXIDINE GLUCONATE 2 % 1 PACK (2 CLOTHS) TOP SCH ×2 (04:00→22:29)
[2016-10-11 05:43] LABS: AUTOMATED NEUTROPHIL # 5.3 TH/MM3 (1.8-7.7); BASOPHIL % 0.5 % (0.0-2.0); EOSINOPHIL # 0.1 TH/MM3 (0-0.4); EOSINOPHIL % 1.9 % (0.0-4.0); HEMO FLAGS DIFF FINAL; LYMPH % 14.9 % (9.0-44.0); LYMPHOCYTE # 1.1 TH/MM3 (1.0-4.8); MEAN CELL VOLUME 88.3 FL (80.0-100.0); MEAN CORPUSCULAR HEMOGLOBIN 29.7 PG (27.0-34.0); MEAN CORPUSCULAR HGB CONC 33.6 % (32.0-36.0); MONO % 10.1 % (0.0-8.0); NEUT % 72.6 % (16.0-70.0); PLATELET COUNT 316 TH/MM3 (150-450); RED BLOOD COUNT 2.71 MIL/MM3 (4.50-5.90); RED CELL DISTRIBUTION WIDTH 14.8 % (11.6-17.2); WHITE BLOOD COUNT 7.3 TH/MM3 (4.0-11.0)
[2016-10-11 05:52] LABS: APTT (PATIENT) 21.6 SEC (24.3-30.1); PROTHROMBIN TIME - PATIENT 11.5 SEC (9.8-11.6)
[2016-10-11] MEDS: AZTREONAM INJ 1,000 MG in SODIUM CHLORIDE 0.9% INJ 100 ML IV SCH ×3 (06:00→21:03)
[2016-10-11] MEDS: PROPRANOLOL HCL 10 MG TAB PO SCH ×3 (06:00→21:03)
[2016-10-11] MEDS: LACTATED RINGER'S 1000 ML INJ 1,000 ML IV SCH ×3 (06:00→18:43)
[2016-10-11] MEDS: DEXMEDETOMIDINE INJ 1,000 MCG in SODIUM CHLOR 0.9% 250 ML INJ 240 ML IV PRN (06:05)
[2016-10-11 06:18] LABS: BICARBONATE 25.8 MEQ/L (21.0-32.0); CALCIUM-PROTEIN CORRECTED 8.5 MG/DL (8.5-10.1); POTASSIUM 3.5 MEQ/L (3.5-5.1); TOTAL BILIRUBIN ADULT 1.1 MG/DL (0.2-1.0)
--- NOTE | 2016-10-11 06:20 | RADRPT ---
EXAM DATE/TIME: 10/11/2016 05:07 [facility] COMPARISON: CHEST SINGLE AP, October 10, 2016, 4:38. INDICATIONS : Shortness of breath. MEDICAL HISTORY : None. SURGICAL HISTORY : None. ENCOUNTER: Subsequent ACUITY: 2 weeks PAIN SCORE: Non-responsive. LOCATION: Bilateral chest FINDINGS: Stable tracheostomy. Interval removal of NGT and right-sided chest tube. No significant pneumothorax. Redemonstration bilateral lower lobe airspace disease. Cardiomediastinal contours are stable. Indist inct central pulmonary vasculature. Remainder of the exam is unchanged. CONCLUSION: 1. Interval removal of NGT and right-sided chest tube. No significant pneumothorax. 2. Stable bilateral lower lobe airspace disease. 3. No significant interval change. Kimani Banerjee MD on October 11, 2016 at 6:17 Board Certified Radiologist. This report was verified electronically.
--- NOTE | 2016-10-11 07:06 | PD.ORT.PN ---
Subjective Subjective Remarks Patient is awake. Has trach in place. Appears comfortable Objective Vitals Vital Signs Date Time Temp Pulse Resp B/P (MAP) Pulse Ox O2 Delivery O2 Flow Rate FiO2 10/11/16 04:03 99 30 10/11/16 04:00 54 16 139/79 (99) 100 10/11/16 04:00 54 10/11/16 04:00 30 10/11/16 02:00 67 10/11/16 00:05 100 30 10/11/16 00:00 99.1 67 16 121/59 (79) 100 10/11/16 00:00 67 10/11/16 00:00 30 10/10/16 22:00 81 10/10/16 21:42 16 10/10/16 20:02 98 30 10/10/16 20:00 30 10/10/16 20:00 100 10/10/16 20:00 99.3 100 17 187/81 (116) 95 10/10/16 18:00 92 10/10/16 16:00 30 10/10/16 16:00 99.7 88 15 164/77 (106) 97 10/10/16 16:00 88 10/10/16 15:54 96 30 10/10/16 14:00 91 10/10/16 12:00 28 10/10/16 12:00 91 10/10/16 12:00 99.9 86 19 153/74 (100) 100 10/10/16 11:09 18 10/10/16 10:00 96 10/10/16 08:00 28 10/10/16 08:00 99.6 88 18 162/74 (103) 100 10/10/16 08:00 88 10/10/16 07:58 100 T-piece 5.00 40 I/O 10/10/16 10/10/16 10/10/16 10/11/16 10/11/16 10/11/16 07:00 15:00 23:00 07:00 15:00 23:00 Intake Total 3463 ml 450 ml Output Total 1480 ml 1150 ml Balance 1983 ml 450 ml -1150 ml IV Total 3463 ml 450 ml Output Urine Total 1200 ml 950 ml Gastric Drainage Total 200 ml 100 ml Chest Tube Drainage Total 80 ml 100 ml # Bowel Movements 1 0 Result Diagram: 10/11/16 0509 10/11/16 0509 Other Results Laboratory Tests Test 10/11/16 05:09 Prothromb Time International Ratio 1.0 RATIO Prothrombin Time 11.5 SEC (9.8-11.6) Imaging Last 24 hours Impressions Chest X-Ray 09/29/16 0000 Signed Impressions: Service Date/Time: Thursday, September 29, 2016 04:45 - CONCLUSION: Endotracheal tube and left subclavian central line are in good position. Lungs are grossly clear. Dereck Hou MD Pelvis X-Ray 09/28/161638 Signed Impressions: Service Date/Time: September 16:24 - CONCLUSION: Diastasis symphysis pubis. Aleksandra Amin MD Maxillofacial CT 09/28/161638 Signed Impressions: Service Date/Time: September 16:50 - CONCLUSION: Extensive fractures with complete dislocation of the left mandibular condyle displaced medial to mandibular body in addition to complex fractures of multiple bones. Aleksandra Amin MD Head CT 09/28/16 163 Signed Impressions: Service Date/Time: September 16:47 - CONCLUSION: There is no evidence of any significant hemorrhage or mass effect. Aleksandra Amin MD Chest X-Ray 09/28/161638 Signed Impressions: Service Date/Time: September 16:24 - CONCLUSION: No acute cardiopulmonary disease. Aleksandra Amin MD Chest CT 09/28/161638 Signed Impressions: Service Date/Time: September 16:54 - CONCLUSION: Small right anterior pneumothorax. Aleksandra Amin MD Cervical Spine CT 09/28/16 163 Signed Impressions: Service Date/Time: September 16:50 - CONCLUSION: Neural foramina compromise right C2-C3, right C3-C4, left C4-5, bilateral C5-C6 left C6-C7 and lateral recess compromise right C3-C4, left C4-5, right C5-C6. No thecal sac stenosis or fracture. Aleksandra Amin MD Abdomen/Pelvis CT 09/28/16 1639 Signed Impressions: Service Date/Time: September 16:56 - CONCLUSION: 1. Extraperitoneal hematoma behind the symphysis pubi and anterior to them. 2. Small right anterior pneumothorax. 3. Bilateral renal stones. Aleksandra Amin MD Objective Remarks RLE: dressings clean and dry. intact. Knee immobilizer in place Pelvis:dressings clean and dry. intact. +drain. LLE: Mild swelling of ankle. No instability. No crepitus. No effusion of the left knee. RUE: No abnormal swelling of the wrist or elbow. Abrasion of the right shoulder. LUE: No abnormal swelling of the wrist or elbow. No swelling of the shoulder Assessment & Plan Assessment and Plan 1) Right Femoral Shaft Fx 2) Right Proximal Tibia Fracture 3) Disruption of Pubic Symphysis POD 5 s/p removal of exfix with IMN right femur and tibia and application of incisional vac POD 8 s/p ORIF pubic symphysis PLAN: -daily dressing changes of right femur/tibia with xeroform/4x4/EUGENIO -daily dressing changes of pelvis with xeroform/primapore -NWB Ki Hodges MD Oct 11, 2016 07:06
[2016-10-11] MEDS: QUEtiapine FUMARATE 100 MG TAB PO SCH ×3 (08:00→21:03)
[2016-10-11] MEDS: CHLORHEXIDINE 0.12% (ORAL KIT) 15 ML CUP MT SCH ×2 (08:17→20:05)
[2016-10-11] MEDS: FAMOTIDINE 20 MG TAB NG SCH ×2 (08:17→21:03)
[2016-10-11] MEDS: DOCUSATE SODIUM 50 MG/SENNA 8.6 MG TAB NG SCH ×2 (08:17→21:03)
[2016-10-11] MEDS: SODIUM CHLORIDE 0.9% FLUSH 5 ML FLUSH IVF SCH ×2 (08:17→21:00)
[2016-10-11] MEDS: BISACODYL 10 MG SUPP RECTAL SCH (08:18)
[2016-10-11] MEDS: POLYETHYLENE GLYCOL 17 GM PKG PO SCH ×2 (08:18→21:03)
[2016-10-11] MEDS: LACTULOSE SYRUP 20 GM/30 ML CUP PO SCH ×2 (08:18→21:03)
[2016-10-11] MEDS: CALCIUM/VITAMIN D 250 MG/125 U TAB PO SCH ×3 (08:18→18:43)
[2016-10-11] MEDS: CHOLECALCIFEROL (VIT D3) 1000 UNIT TAB PO SCH (08:18)
[2016-10-11] MEDS ORDERED: MIDAZOLAM HCL 2 MG/2 ML VIAL ONE (09:57)
[2016-10-11] MEDS ORDERED: GLUCAGON 1 MG/ML VIAL ONE (10:06)
[2016-10-11] MEDS ORDERED: IOHEXOL 350 MG/ML 50 ML BTL (for RAD DIAG) G-TUBE ONE (10:59)
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
[2016-10-11] MEDS ORDERED: PROPOFOL 200 MG/20 ML AMP IV ONE (12:00)
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
[2016-10-11] MEDS ORDERED: CHLORHEXIDINE GLUCONATE 0.12% 15 ML CUP ONE ×2 (15:43→17:11)
[2016-10-11] MEDS ORDERED: LIDOCAINE 2%/EPINEPHrine PF 1:200,000 20ML SDV ONE ×2 (16:04→16:21)
--- NOTE | 2016-10-11 18:00 | HHI.PR ---
Immediate Post Op Note Procedure Date: Oct 11, 2016 Pre Op Diagnosis: b/l condylar fractures -->loose arch bars/imf wire loose tooth #29 Post Op Diagnosis: erick Surgeon: Richie Webb Mechatronics Engineer(s): jose m monteiro Procedure: exam under anesthesia closed reduction b/l condylar fractures extraction of tooth #29 revision of intraoral wounds Complications: none Estimated blood loss: minimal Anesthesia: General, Local (2%lidocaine with 1:100,000 epi 4cc) Drains: None Patient to: ISC Patient Condition: Good Date/Time of Procedure: SEE SURGICAL CARE RECORD Richie Webb DMD Oct 11, 2016 18:00
[2016-10-12] VITALS (16 sets, daily range): BP systolic 115–185; BP diastolic 55–79; PULSE 74–96; RESP 14–20; TEMP 98.4–101; O2SAT 94–100
[2016-10-12] MEDS: ACETAMINOPHEN 325 MG TAB NG PRN (00:48)
[2016-10-12] MEDS: HYDROmorphone HCL PF 1 MG/ML VIAL IV PRN ×3 (01:30→10:54)
[2016-10-12 04:07] LABS: AUTOMATED NEUTROPHIL # 4.6 TH/MM3 (1.8-7.7); BASOPHIL % 0.6 % (0.0-2.0); EOSINOPHIL # 0.2 TH/MM3 (0-0.4); EOSINOPHIL % 3.2 % (0.0-4.0); HEMATOCRIT 24.2 % (39.0-51.0); HEMO FLAGS DIFF FINAL; LYMPH % 17.1 % (9.0-44.0); LYMPHOCYTE # 1.1 TH/MM3 (1.0-4.8); MEAN CELL VOLUME 87.5 FL (80.0-100.0); MEAN CORPUSCULAR HEMOGLOBIN 29.4 PG (27.0-34.0); MEAN CORPUSCULAR HGB CONC 33.6 % (32.0-36.0); NEUT % 70.1 % (16.0-70.0); PLATELET COUNT 334 TH/MM3 (150-450); RED BLOOD COUNT 2.77 MIL/MM3 (4.50-5.90); RED CELL DISTRIBUTION WIDTH 15.2 % (11.6-17.2); WHITE BLOOD COUNT 6.6 TH/MM3 (4.0-11.0)
[2016-10-12 04:43] LABS: BICARBONATE 26.9 MEQ/L (21.0-32.0); CALCIUM-PROTEIN CORRECTED 8.1 MG/DL (8.5-10.1); POTASSIUM 3.3 MEQ/L (3.5-5.1); TOTAL BILIRUBIN ADULT 1.1 MG/DL (0.2-1.0)
[2016-10-12] MEDS: PROPRANOLOL HCL 10 MG TAB PO SCH ×3 (04:55→21:06)
[2016-10-12] MEDS: AZTREONAM INJ 1,000 MG in SODIUM CHLORIDE 0.9% INJ 100 ML IV SCH ×3 (04:55→21:07)
[2016-10-12] MEDS: LACTATED RINGER'S 1000 ML INJ 1,000 ML IV SCH ×2 (06:45→17:43)
[2016-10-12] MEDS: CHLORHEXIDINE 0.12% (ORAL KIT) 15 ML CUP MT SCH ×2 (08:00→20:32)
[2016-10-12] MEDS: BISACODYL 10 MG SUPP RECTAL SCH (09:00)
[2016-10-12] MEDS: SODIUM CHLORIDE 0.9% FLUSH 5 ML FLUSH IVF SCH ×2 (09:00→20:32)
[2016-10-12] MEDS: LACTULOSE SYRUP 20 GM/30 ML CUP PO SCH ×2 (09:12→20:32)
[2016-10-12] MEDS: CALCIUM/VITAMIN D 250 MG/125 U TAB PO SCH ×3 (09:14→17:43)
[2016-10-12] MEDS: CHLORHEXIDINE GLUCONATE 0.12% 15 ML CUP SWISH-SPIT SCH ×4 (09:14→20:33)
[2016-10-12] MEDS: FAMOTIDINE 20 MG TAB NG SCH ×2 (09:14→20:32)
[2016-10-12] MEDS: QUEtiapine FUMARATE 100 MG TAB PO SCH ×3 (09:14→20:33)
[2016-10-12] MEDS: CHOLECALCIFEROL (VIT D3) 1000 UNIT TAB PO SCH (09:15)
[2016-10-12] MEDS: POTASSIUM CHLOR 40 MEQ PREMIX 100 ML IV PRN (09:15)
[2016-10-12] MEDS: DOCUSATE SODIUM 50 MG/SENNA 8.6 MG TAB NG SCH ×2 (09:15→20:32)
[2016-10-12] MEDS: POLYETHYLENE GLYCOL 17 GM PKG PO SCH ×2 (09:15→20:34)
[2016-10-12] MEDS: POTASSIUM CHLOR 20 MEQ PREMIX 100 ML IV PRN ×2 (10:15→17:26)
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
[2016-10-12] MEDS: ENOXAPARIN SODIUM 30 MG/0.3 ML SYRINGE SQ SCH (18:08)
[2016-10-13] VITALS (14 sets, daily range): BP systolic 128–151; BP diastolic 64–80; PULSE 76–92; RESP 15–22; TEMP 98.6–99.8; O2SAT 93–100
[2016-10-13] MEDS: CHLORHEXIDINE GLUCONATE 2 % 1 PACK (2 CLOTHS) TOP SCH (03:00)
[2016-10-13] MEDS: ONDANSETRON HCL 4 MG/2 ML VIAL IV PRN ×2 (03:00→03:01)
[2016-10-13] MEDS: HYDROmorphone HCL PF 1 MG/ML VIAL IV PRN (04:35)
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
[2016-10-13 05:53] LABS: AUTOMATED NEUTROPHIL # 5.7 TH/MM3 (1.8-7.7); BASOPHIL # 0.1 TH/MM3 (0-0.2); BASOPHIL % 0.7 % (0.0-2.0); EOSINOPHIL # 0.2 TH/MM3 (0-0.4); EOSINOPHIL % 2.9 % (0.0-4.0); HEMATOCRIT 25.8 % (39.0-51.0); HEMO FLAGS DIFF FINAL; LYMPH % 13.1 % (9.0-44.0); MEAN CELL VOLUME 87.5 FL (80.0-100.0); MEAN CORPUSCULAR HEMOGLOBIN 29.5 PG (27.0-34.0); MEAN CORPUSCULAR HGB CONC 33.7 % (32.0-36.0); MONO % 7.3 % (0.0-8.0); PLATELET COUNT 423 TH/MM3 (150-450); RED BLOOD COUNT 2.95 MIL/MM3 (4.50-5.90); RED CELL DISTRIBUTION WIDTH 14.9 % (11.6-17.2); WHITE BLOOD COUNT 7.5 TH/MM3 (4.0-11.0)
[2016-10-13] MEDS: AZTREONAM INJ 1,000 MG in SODIUM CHLORIDE 0.9% INJ 100 ML IV SCH (06:17)
[2016-10-13] MEDS: PROPRANOLOL HCL 10 MG TAB PO SCH ×3 (06:17→22:25)
[2016-10-13] MEDS: ENOXAPARIN SODIUM 30 MG/0.3 ML SYRINGE SQ SCH ×2 (06:17→18:38)
[2016-10-13] MEDS: LACTATED RINGER'S 1000 ML INJ 1,000 ML IV SCH (06:18)
[2016-10-13 06:22] LABS: BICARBONATE 28.9 MEQ/L (21.0-32.0); CALCIUM-PROTEIN CORRECTED 7.9 MG/DL (8.5-10.1); POTASSIUM 3.5 MEQ/L (3.5-5.1); TOTAL BILIRUBIN ADULT 0.8 MG/DL (0.2-1.0)
--- NOTE | 2016-10-13 07:41 | PD.ORT.PN ---
Subjective Subjective Remarks POD 10 s/p ORIF pubic symphysis POD 7 s/p removal of exfix with IMN right tibia and femur with application of incisional vac trached. no changes Objective Vitals Vital Signs Date Time Temp Pulse Resp B/P (MAP) Pulse Ox O2 Delivery O2 Flow Rate FiO2 10/13/16 06:00 86 10/13/16 04:00 99.8 91 19 140/64 (89) 97 10/13/16 04:00 91 10/13/16 02:00 87 10/13/16 00:00 99.1 82 16 151/70 (97) 98 10/13/16 00:00 82 10/12/16 22:00 83 10/12/16 21:00 132/64 (86) 10/12/16 20:00 99.6 96 18 185/79 (114) 97 10/12/16 20:00 96 10/12/16 19:40 97 T-piece 28 10/12/16 18:57 17 10/12/16 18:00 81 10/12/16 16:00 99.9 89 16 144/72 (96) 100 10/12/16 16:00 89 10/12/16 14:00 88 10/12/16 12:00 100.7 85 20 139/63 (88) 98 10/12/16 12:00 85 10/12/16 11:24 20 10/12/16 10:00 92 10/12/16 08:00 95 T-piece 5.00 10/12/16 08:00 100.0 88 17 149/65 (93) 94 10/12/16 08:00 88 I/O 10/12/16 10/12/16 10/12/16 10/13/16 10/13/16 10/13/16 07:00 15:00 23:00 07:00 15:00 23:00 Intake Total 1093 ml 837 ml 1549 ml Output Total 1350 ml 1450.0 ml 2200 ml Balance -257 ml -613.0 ml -651 ml IV Total 1093 ml 787 ml 1087 ml Tube Feeding 50 ml 222 ml Other 240 ml Output Urine Total 1350 ml 1450 ml 2200 ml Tube Feeding Residual Discard 0 ml 0 ml # Bowel Movements 0 0 0 Result Diagram: 10/13/1652310/13/16523 Imaging Last 24 hours Impressions Chest X-Ray 09/29/16 0000 Signed Impressions: Service Date/Time: Thursday, September 29, 2016 04:45 - CONCLUSION: Endotracheal tube and left subclavian central line are in good position. Lungs are grossly clear. Dereck Hou MD Pelvis X-Ray 09/28/161638 Signed Impressions: Service Date/Time: September 16:24 - CONCLUSION: Diastasis symphysis pubis. Aleksandra Amin MD Maxillofacial CT 09/28/161638 Signed Impressions: Service Date/Time: September 16:50 - CONCLUSION: Extensive fractures with complete dislocation of the left mandibular condyle displaced medial to mandibular body in addition to complex fractures of multiple bones. Aleksandra Amin MD Head CT 09/28/161638 Signed Impressions: Service Date/Time: September 16:47 - CONCLUSION: There is no evidence of any significant hemorrhage or mass effect. Aleksandra Amin MD Chest X-Ray 09/28/161638 Signed Impressions: Service Date/Time: September 16:24 - CONCLUSION: No acute cardiopulmonary disease. Aleksandra Amin MD Chest CT 09/28/161638 Signed Impressions: Service Date/Time: September 16:54 - CONCLUSION: Small right anterior pneumothorax. Aleksandra Amin MD Cervical Spine CT 09/28/161638 Signed Impressions: Service Date/Time: September 16:50 - CONCLUSION: Neural foramina compromise right C2-C3, right C3-C4, left C4-5, bilateral C5-C6 left C6-C7 and lateral recess compromise right C3-C4, left C4-5, right C5-C6. No thecal sac stenosis or fracture. Aleksandra Amin MD Abdomen/Pelvis CT 09/28/161638 Signed Impressions: Service Date/Time: September 16:56 - CONCLUSION: 1. Extraperitoneal hematoma behind the symphysis pubi and anterior to them. 2. Small right anterior pneumothorax. 3. Bilateral renal stones. Aleksandra Amin MD Objective Remarks RLE: dressings clean and dry. intact. Knee immobilizer in place Pelvis:dressings clean and dry. intact. +drain. LLE: Mild swelling of ankle. No instability. No crepitus. No effusion of the left knee. RUE: No abnormal swelling of the wrist or elbow. Abrasion of the right shoulder. LUE: No abnormal swelling of the wrist or elbow. No swelling of the shoulder Assessment & Plan Assessment and Plan 1) Right Femoral Shaft Fx 2) Right Proximal Tibia Fracture 3) Disruption of Pubic Symphysis POD 7 s/p removal of exfix with IMN right femur and tibia and application of incisional vac POD 10 s/p ORIF pubic symphysis PLAN: -daily dressing changes of right femur/tibia with xeroform/4x4/EUGENIO -daily dressing changes of pelvis with xeroform/primapore -NWB BLE Lloyd Rust Oct 13, 2016 07:41
[2016-10-13] MEDS: CHLORHEXIDINE 0.12% (ORAL KIT) 15 ML CUP MT SCH ×2 (08:00→20:00)
[2016-10-13] MEDS: LACTULOSE SYRUP 20 GM/30 ML CUP PO SCH ×2 (08:15→21:00)
[2016-10-13] MEDS: DOCUSATE SODIUM 50 MG/SENNA 8.6 MG TAB NG SCH ×2 (08:16→22:25)
[2016-10-13] MEDS: SODIUM CHLORIDE 0.9% FLUSH 5 ML FLUSH IVF SCH ×2 (08:16→21:00)
[2016-10-13] MEDS: CHOLECALCIFEROL (VIT D3) 1000 UNIT TAB PO SCH (08:16)
[2016-10-13] MEDS: QUEtiapine FUMARATE 100 MG TAB PO SCH ×3 (08:16→22:25)
[2016-10-13] MEDS: FAMOTIDINE 20 MG TAB NG SCH ×2 (08:16→22:25)
[2016-10-13] MEDS: POLYETHYLENE GLYCOL 17 GM PKG PO SCH ×2 (08:16→21:00)
[2016-10-13] MEDS: CALCIUM/VITAMIN D 250 MG/125 U TAB PO SCH ×3 (08:22→18:38)
[2016-10-13] MEDS: BISACODYL 10 MG SUPP RECTAL SCH (09:00)
[2016-10-13] MEDS: CHLORHEXIDINE GLUCONATE 0.12% 15 ML CUP SWISH-SPIT SCH ×4 (09:00→21:00)
[2016-10-13] MEDS: fentaNYL 25 MCG/HR PATCH T-DERMAL SCH (11:08)
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
[2016-10-13] MEDS: ERGOCALCIFEROL (VIT D2) 50,000 UNIT CAP PO SCH (14:28)
[2016-10-13] MEDS: POTASSIUM CHLOR 20 MEQ PREMIX 100 ML IV PRN (14:33)
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
[2016-10-14] VITALS: BP 126/69; PULSE 84; RESP 21; TEMP 99.1; O2SAT 95
[2016-10-14] MEDS: CHLORHEXIDINE GLUCONATE 2 % 1 PACK (2 CLOTHS) TOP SCH (04:00)
[2016-10-14 04:10] VITALS: BP 137/68; PULSE 88; RESP 21; TEMP 98; O2SAT 92
[2016-10-14] MEDS: PROPRANOLOL HCL 10 MG TAB PO SCH ×3 (05:25→20:46)
[2016-10-14] MEDS: ENOXAPARIN SODIUM 30 MG/0.3 ML SYRINGE SQ SCH ×2 (05:27→18:10)
[2016-10-14 06:03] LABS: AUTOMATED NEUTROPHIL # 5.7 TH/MM3 (1.8-7.7); BASOPHIL # 0.1 TH/MM3 (0-0.2); BASOPHIL % 0.7 % (0.0-2.0); EOSINOPHIL # 0.3 TH/MM3 (0-0.4); EOSINOPHIL % 3.2 % (0.0-4.0); HEMATOCRIT 27.1 % (39.0-51.0); HEMO FLAGS DIFF FINAL; LYMPH % 14.9 % (9.0-44.0); LYMPHOCYTE # 1.2 TH/MM3 (1.0-4.8); MEAN CELL VOLUME 87.3 FL (80.0-100.0); MEAN CORPUSCULAR HEMOGLOBIN 29.3 PG (27.0-34.0); MEAN CORPUSCULAR HGB CONC 33.6 % (32.0-36.0); MONO % 8.5 % (0.0-8.0); NEUT % 72.7 % (16.0-70.0); PLATELET COUNT 496 TH/MM3 (150-450); RED CELL DISTRIBUTION WIDTH 14.8 % (11.6-17.2); WHITE BLOOD COUNT 7.8 TH/MM3 (4.0-11.0)
[2016-10-14 06:24] LABS: ALT (GPT) 40 U/L (12-78); ANION GAP 8 MEQ/L (5-15); AST (GOT) 43 U/L (15-37); BICARBONATE 30.4 MEQ/L (21.0-32.0); BLOOD UREA NITROGEN 11 MG/DL (7-18); CHLORIDE 102 MEQ/L (98-107); GLOMERULAR FILTRATION RATE 83 ML/MIN (>89); POTASSIUM 3.6 MEQ/L (3.5-5.1); SODIUM (NA) 140 MEQ/L (136-145)
[2016-10-14 06:26] LABS: ALKALINE PHOSPHATASE 134 U/L (45-117); TOTAL BILIRUBIN ADULT 0.8 MG/DL (0.2-1.0)
[2016-10-14 08:00] VITALS: BP 130/62; PULSE 81; RESP 19; TEMP 97.7; O2SAT 95
[2016-10-14] MEDS: CHLORHEXIDINE 0.12% (ORAL KIT) 15 ML CUP MT SCH (08:00)
[2016-10-14] MEDS: CHLORHEXIDINE GLUCONATE 0.12% 15 ML CUP SWISH-SPIT SCH ×4 (08:42→17:04)
[2016-10-14] MEDS: LACTULOSE SYRUP 20 GM/30 ML CUP PO SCH ×2 (08:42→20:45)
[2016-10-14] MEDS: CALCIUM/VITAMIN D 250 MG/125 U TAB PO SCH ×3 (08:43→17:04)
[2016-10-14] MEDS: FAMOTIDINE 20 MG TAB NG SCH ×2 (08:43→20:46)
[2016-10-14] MEDS: DOCUSATE SODIUM 50 MG/SENNA 8.6 MG TAB NG SCH ×2 (08:43→20:45)
[2016-10-14] MEDS: QUEtiapine FUMARATE 100 MG TAB PO SCH ×3 (08:43→20:46)
[2016-10-14] MEDS: CHOLECALCIFEROL (VIT D3) 1000 UNIT TAB PO SCH (08:43)
[2016-10-14] MEDS: POLYETHYLENE GLYCOL 17 GM PKG PO SCH ×2 (08:43→20:45)
[2016-10-14] MEDS: SODIUM CHLORIDE 0.9% FLUSH 5 ML FLUSH IVF SCH ×3 (08:44→20:46)
[2016-10-14] MEDS: BISACODYL 10 MG SUPP RECTAL SCH (08:44)
[2016-10-14] MEDS ORDERED: ENALAPRILAT 1.25 MG/ML VIAL IV PUSH PRN (09:00)
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
[2016-10-14 12:00] VITALS: BP 108/62; PULSE 91; RESP 19; TEMP 99; O2SAT 95
[2016-10-14] MEDS: HYOSCYAMINE 0.125 MG TAB PO PRN ×2 (13:54→18:10)
[2016-10-14 16:00] VITALS: BP 126/60; PULSE 80; RESP 20; TEMP 99.4; O2SAT 96
[2016-10-14] MEDS: ONDANSETRON HCL 4 MG/2 ML VIAL IV PRN (17:17)
[2016-10-14 20:00] VITALS: BP 138/68; PULSE 92; RESP 18; TEMP 98.2; O2SAT 94
[2016-10-15] VITALS (7 sets, daily range): BP systolic 113–128; BP diastolic 56–72; PULSE 75–97; RESP 18–20; TEMP 98.2–99.4; O2SAT 95–97
[2016-10-15] MEDS: HYOSCYAMINE 0.125 MG TAB PO PRN ×4 (00:40→22:30)
[2016-10-15] MEDS: ONDANSETRON HCL 4 MG/2 ML VIAL IV PRN (00:53)
[2016-10-15] MEDS: PROPRANOLOL HCL 10 MG TAB PO SCH ×3 (05:13→20:06)
[2016-10-15] MEDS: ENOXAPARIN SODIUM 30 MG/0.3 ML SYRINGE SQ SCH ×2 (05:14→17:08)
[2016-10-15 07:51] LABS: AUTOMATED NEUTROPHIL # 4.6 TH/MM3 (1.8-7.7); BASOPHIL # 0.1 TH/MM3 (0-0.2); BASOPHIL % 1.1 % (0.0-2.0); EOSINOPHIL # 0.3 TH/MM3 (0-0.4); HEMATOCRIT 28.2 % (39.0-51.0); HEMO FLAGS DIFF FINAL; LYMPH % 19.7 % (9.0-44.0); LYMPHOCYTE # 1.4 TH/MM3 (1.0-4.8); MEAN CELL VOLUME 87.2 FL (80.0-100.0); MEAN CORPUSCULAR HEMOGLOBIN 28.3 PG (27.0-34.0); MEAN CORPUSCULAR HGB CONC 32.4 % (32.0-36.0); MONO % 9.8 % (0.0-8.0); NEUT % 65.4 % (16.0-70.0); PLATELET COUNT 529 TH/MM3 (150-450); RED BLOOD COUNT 3.24 MIL/MM3 (4.50-5.90); RED CELL DISTRIBUTION WIDTH 15.2 % (11.6-17.2)
[2016-10-15 08:13] LABS: ANION GAP 6 MEQ/L (5-15); AST (GOT) 55 U/L (15-37); BICARBONATE 31.6 MEQ/L (21.0-32.0); BLOOD UREA NITROGEN 11 MG/DL (7-18); CHLORIDE 99 MEQ/L (98-107); GLOMERULAR FILTRATION RATE 84 ML/MIN (>89); POTASSIUM 3.5 MEQ/L (3.5-5.1); SODIUM (NA) 137 MEQ/L (136-145)
[2016-10-15 08:15] LABS: ALT (GPT) 45 U/L (12-78)
[2016-10-15 08:16] LABS: ALKALINE PHOSPHATASE 133 U/L (45-117); TOTAL BILIRUBIN ADULT 0.7 MG/DL (0.2-1.0)
[2016-10-15] MEDS: QUEtiapine FUMARATE 100 MG TAB PO SCH ×3 (08:23→20:05)
[2016-10-15] MEDS: CALCIUM/VITAMIN D 250 MG/125 U TAB PO SCH ×3 (08:23→17:07)
[2016-10-15] MEDS: FAMOTIDINE 20 MG TAB NG SCH ×2 (08:24→20:05)
[2016-10-15] MEDS: DOCUSATE SODIUM 50 MG/SENNA 8.6 MG TAB NG SCH ×2 (08:24→20:04)
[2016-10-15] MEDS: SODIUM CHLORIDE 0.9% FLUSH 5 ML FLUSH IVF SCH ×2 (08:24→20:06)
[2016-10-15] MEDS: CHOLECALCIFEROL (VIT D3) 1000 UNIT TAB PO SCH (08:24)
[2016-10-15] MEDS: BISACODYL 10 MG SUPP RECTAL SCH (08:25)
[2016-10-15] MEDS: POLYETHYLENE GLYCOL 17 GM PKG PO SCH ×2 (08:25→20:04)
[2016-10-15] MEDS: LACTULOSE SYRUP 20 GM/30 ML CUP PO SCH ×2 (08:25→20:04)
[2016-10-15] MEDS: CHLORHEXIDINE GLUCONATE 0.12% 15 ML CUP SWISH-SPIT SCH ×3 (08:26→17:08)
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
[2016-10-16] VITALS (7 sets, daily range): BP systolic 120–125; BP diastolic 64–72; PULSE 73–87; RESP 18–20; TEMP 95.5–99.1; O2SAT 95–100
[2016-10-16] MEDS: HYOSCYAMINE 0.125 MG TAB PO PRN ×4 (03:26→17:18)
[2016-10-16] MEDS: ENOXAPARIN SODIUM 30 MG/0.3 ML SYRINGE SQ SCH ×2 (06:11→17:18)
[2016-10-16] MEDS: PROPRANOLOL HCL 10 MG TAB PO SCH (06:11)
[2016-10-16] MEDS: LACTULOSE SYRUP 20 GM/30 ML CUP PO SCH ×2 (09:00→20:25)
[2016-10-16] MEDS: SODIUM CHLORIDE 0.9% FLUSH 5 ML FLUSH IVF SCH ×2 (09:00→20:26)
[2016-10-16] MEDS: CHLORHEXIDINE GLUCONATE 0.12% 15 ML CUP SWISH-SPIT SCH ×3 (09:00→17:18)
[2016-10-16] MEDS: POLYETHYLENE GLYCOL 17 GM PKG PO SCH ×2 (09:00→20:25)
[2016-10-16] MEDS: BISACODYL 10 MG SUPP RECTAL SCH (09:00)
[2016-10-16] MEDS: CHOLECALCIFEROL (VIT D3) 1000 UNIT TAB PO SCH (09:03)
[2016-10-16] MEDS: CALCIUM/VITAMIN D 250 MG/125 U TAB PO SCH ×3 (09:03→17:18)
[2016-10-16] MEDS: FAMOTIDINE 20 MG TAB NG SCH ×2 (09:03→20:25)
[2016-10-16] MEDS: QUEtiapine FUMARATE 100 MG TAB PO SCH ×3 (09:03→20:25)
[2016-10-16] MEDS: DOCUSATE SODIUM 50 MG/SENNA 8.6 MG TAB NG SCH ×2 (09:03→20:25)
[2016-10-16] MEDS: fentaNYL 25 MCG/HR PATCH T-DERMAL SCH (09:04)
[2016-10-16] MEDS ORDERED: REMOVE OLD DURAGESIC (FENTANYL) PATCH T-DERMAL SCH (10:00)
[2016-10-16] MEDS ORDERED: MELATONIN 5 MG TAB PO PRN (10:15)
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
[2016-10-16] MEDS ORDERED: LEVS0.123 PO (14:30)
[2016-10-16] MEDS ORDERED: ENOX30P SQ (14:30)
[2016-10-16] MEDS ORDERED: QUET1TAB8 PO ×3 (14:31)
[2016-10-16] MEDS ORDERED: FENT25T T-DERMAL (14:31)
[2016-10-16] MEDS ORDERED: GNP5TAB6 PO (14:31)
[2016-10-16] MEDS ORDERED: FAMO20TA2 NG (14:31)
[2016-10-16] MEDS ORDERED: CHLO.12%30 SWISH-SPIT (14:31)
[2016-10-16] MEDS ORDERED: OXYC-395 PO (14:31)
[2016-10-17] VITALS: BP 149/75; PULSE 102; RESP 20; TEMP 98.2; O2SAT 97
[2016-10-17] MEDS: HYOSCYAMINE 0.125 MG TAB PO PRN ×2 (02:42→09:14)
[2016-10-17] MEDS: ENOXAPARIN SODIUM 30 MG/0.3 ML SYRINGE SQ SCH (06:22)
[2016-10-17 08:00] VITALS: BP 128/66; PULSE 85; RESP 19; TEMP 96.6; O2SAT 99
[2016-10-17] MEDS: POLYETHYLENE GLYCOL 17 GM PKG PO SCH (09:00)
[2016-10-17] MEDS: SODIUM CHLORIDE 0.9% FLUSH 5 ML FLUSH IVF SCH (09:00)
[2016-10-17] MEDS: LACTULOSE SYRUP 20 GM/30 ML CUP PO SCH (09:00)
[2016-10-17] MEDS: DOCUSATE SODIUM 50 MG/SENNA 8.6 MG TAB NG SCH (09:00)
[2016-10-17] MEDS: BISACODYL 10 MG SUPP RECTAL SCH (09:00)
[2016-10-17] MEDS: CHOLECALCIFEROL (VIT D3) 1000 UNIT TAB PO SCH (09:14)
[2016-10-17] MEDS: QUEtiapine FUMARATE 100 MG TAB PO SCH ×2 (09:14→14:58)
[2016-10-17] MEDS: FAMOTIDINE 20 MG TAB NG SCH (09:14)
[2016-10-17] MEDS: CALCIUM/VITAMIN D 250 MG/125 U TAB PO SCH ×2 (09:14→14:58)
[2016-10-17] MEDS: CHLORHEXIDINE GLUCONATE 0.12% 15 ML CUP SWISH-SPIT SCH ×2 (09:45→14:32)
[2016-10-17 10:18] VITALS: O2SAT 97
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
[2016-10-17 12:00] VITALS: BP 136/78; PULSE 83; RESP 18; TEMP 97.2; O2SAT 100
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
--- NOTE | 2016-10-18 11:03 | PD.PLAS.PN ---
Subjective Remarks Patient seen 10/17/16. Patient awake and alert with trach. Objective Vital Signs Date Time Temp Pulse Resp B/P (MAP) Pulse Ox O2 Delivery O2 Flow Rate FiO2 10/17/16 12:00 97.2 83 18 136/78 (97) 100 I/O 10/17/16 10/17/16 10/17/16 10/18/16 10/18/16 10/18/16 07:00 15:00 23:00 07:00 15:00 23:00 Intake Total 416 ml Output Total 910 ml Balance -910 ml 416 ml Tube Feeding 416 ml Output Urine Total 910 ml Bladder Scan Volume Amount 385 ml Date/Time Source Procedure Growth Status 10/08/16 09:25 Blood Peripheral Aerobic Blood Culture - Final NO GROWTH IN 5 DAYS Complete 10/08/16 09:25 Blood Peripheral Anaerobic Blood Culture - Final NO GROWTH IN 5 DAYS Complete 10/08/16 09:15 Sputum Endotracheal Gram Stain - Final Complete 10/08/16 09:15 Sputum Endotracheal Sputum Culture - Final NO GROWTH IN 48 HOURS. Complete Result Diagram: 10/15/16 0725 10/15/16 0725 Exam Findings Wound of the right wrist is well healed. Sutures have been removed. The patient has full active range of motion of the fingers, hand, and wrist against resistance. Assessment and Plan Diagnosis: (1) Laceration of right wrist ICD Codes: S61.511A - Laceration without foreign body of right wrist, initial encounter Qualifiers: Assessment and Plan There is no evidence of additional injury to the right hand. No further treatment recommendations at this time. Dea Dimas Oct 18, 2016 11:03
[2016-11-02] MEDS ORDERED: BEDSIDE COMMODE1 MI1 (15:04)
[2016-11-02] MEDS ORDERED: WHEEMIS3 (15:04)
[2016-11-02] MEDS ORDERED: GETGO ROLLING W1 MI1 (15:04)
[2016-11-06] MEDS ORDERED: OXYC-395 PEG (08:39)
[2016-11-06] MEDS ORDERED: TIZA4 PEG (08:39)
[2016-11-06] MEDS ORDERED: CHLO.12%30 SWISH-SPIT (08:39)
[2016-11-06] MEDS ORDERED: WATE1INJ2 G-TUBE (08:39)
[2016-11-06] MEDS ORDERED: FAMO20TA2 PEG (08:39)
[2016-11-06] MEDS ORDERED: ZINC40PS TOPICAL (08:39)
[2016-11-06] MEDS ORDERED: MAGN400S PEG (08:39)
== END 2016-10-17 15:35 | DRG 3 ==
LOC: NEPI 16:31 → NEDA 17:34 → MERGE 17:34 → EDBD 17:34 → HPAC 18:35 → N03B 21:19 → N07A 10-13 19:48
PROVIDERS: ADMIT Surgery; ATTEND Surgery
PROC: 5A1955Z Respiratory Ventilation, Greater than 96 Consecutive Hours (ICD-10-PCS; 2016-09-28)
PROC: 04VE3DZ Restriction of Right Internal Iliac Artery with Intraluminal Device, Percutaneous Approach (ICD-10-PCS; 2016-09-28)
PROC: 0QS205Z Reposition Right Pelvic Bone with External Fixation Device, Open Approach (ICD-10-PCS; 2016-09-28)
PROC: 0QS805Z Reposition Right Femoral Shaft with External Fixation Device, Open Approach (ICD-10-PCS; 2016-09-28)
PROC: 0QSG05Z Reposition Right Tibia with External Fixation Device, Open Approach (ICD-10-PCS; 2016-09-28)
PROC: 04VY3DZ Restriction of Lower Artery with Intraluminal Device, Percutaneous Approach (ICD-10-PCS; 2016-09-28)
PROC: 05H633Z Insertion of Infusion Device into Left Subclavian Vein, Percutaneous Approach (ICD-10-PCS; 2016-09-28)
PROC: 0QS2XZZ Reposition Right Pelvic Bone, External Approach (ICD-10-PCS; principal; 2016-09-28 19:11)
PROC: 30233N1 Transfusion of Nonautologous Red Blood Cells into Peripheral Vein, Percutaneous Approach (ICD-10-PCS; 2016-09-29)
PROC: 0NSVXZZ Reposition Left Mandible, External Approach (ICD-10-PCS; 2016-09-30)
PROC: 0NSTXZZ Reposition Right Mandible, External Approach (ICD-10-PCS; 2016-09-30)
PROC: 0HQ1XZZ Repair Face Skin, External Approach (ICD-10-PCS; 2016-09-30)
PROC: 6A550Z2 Pheresis of Platelets, Single (ICD-10-PCS; 2016-09-30)
PROC: 0HQ4XZZ Repair Neck Skin, External Approach (ICD-10-PCS; 2016-09-30)
PROC: 0NST04Z Reposition Right Mandible with Internal Fixation Device, Open Approach (ICD-10-PCS; 2016-09-30 13:22)
PROC: 0QS304Z Reposition Left Pelvic Bone with Internal Fixation Device, Open Approach (ICD-10-PCS; 2016-10-03)
PROC: 0JDN3ZZ Extraction of Right Lower Leg Subcutaneous Tissue and Fascia, Percutaneous Approach (ICD-10-PCS; 2016-10-03)
PROC: 0W9930Z Drainage of Right Pleural Cavity with Drainage Device, Percutaneous Approach (ICD-10-PCS; 2016-10-03)
PROC: 0B113F4 Bypass Trachea to Cutaneous with Tracheostomy Device, Percutaneous Approach (ICD-10-PCS; 2016-10-05)
PROC: 0BCM8ZZ Extirpation of Matter from Bilateral Lungs, Via Natural or Artificial Opening Endoscopic (ICD-10-PCS; 2016-10-05)
PROC: 0BJ08ZZ Inspection of Tracheobronchial Tree, Via Natural or Artificial Opening Endoscopic (ICD-10-PCS; 2016-10-05)
PROC: 0QS806Z Reposition Right Femoral Shaft with Intramedullary Internal Fixation Device, Open Approach (ICD-10-PCS; 2016-10-06)
PROC: 0QSG04Z Reposition Right Tibia with Internal Fixation Device, Open Approach (ICD-10-PCS; 2016-10-06)
PROC: 0QSG06Z Reposition Right Tibia with Intramedullary Internal Fixation Device, Open Approach (ICD-10-PCS; 2016-10-06)
PROC: 0QP Lower Bones, Removal (ICD-10-PCS; 2016-10-06)
PROC: 0QP Lower Bones, Removal (ICD-10-PCS; 2016-10-06)
PROC: 0NSVXZZ Reposition Left Mandible, External Approach (ICD-10-PCS; 2016-10-11)
PROC: 0NSTXZZ Reposition Right Mandible, External Approach (ICD-10-PCS; 2016-10-11)
PROC: 0CDXXZ0 Extraction of Lower Tooth, Single, External Approach (ICD-10-PCS; 2016-10-11)
PROC: 0DH63UZ Insertion of Feeding Device into Stomach, Percutaneous Approach (ICD-10-PCS; 2016-10-11)
DX: S32.89XA Fracture of other parts of pelvis, initial encounter for closed fracture (principal); R57.9 Shock, unspecified; S35.511A Injury of right iliac artery, initial encounter; S72.301A Unspecified fracture of shaft of right femur, initial encounter for closed fracture; S27.0XXA Traumatic pneumothorax, initial encounter; N17.9 Acute kidney failure, unspecified; E87.3 Alkalosis; J96.01 Acute respiratory failure with hypoxia; R65.10 Systemic inflammatory response syndrome (SIRS) of non-infectious origin without acute organ dysfunction; S02.42XA Fracture of alveolus of maxilla, initial encounter for closed fracture; Z99.11 Dependence on respirator [ventilator] status; S82.301B Unspecified fracture of lower end of right tibia, initial encounter for open fracture type I or II; D62 Acute posthemorrhagic anemia; S06.0X9A Concussion with loss of consciousness of unspecified duration, initial encounter; S85.812A Laceration of other blood vessels at lower leg level, left leg, initial encounter; S02.612A Fracture of condylar process of left mandible, initial encounter for closed fracture; S02.611A Fracture of condylar process of right mandible, initial encounter for closed fracture; S22.41XA Multiple fractures of ribs, right side, initial encounter for closed fracture; S02.19XA Other fracture of base of skull, initial encounter for closed fracture; S82.141A Displaced bicondylar fracture of right tibia, initial encounter for closed fracture; S02.40DA Maxillary fracture, left side, initial encounter for closed fracture; E44.1 Mild protein-calorie malnutrition; K56.7 Ileus, unspecified; D69.59 Other secondary thrombocytopenia; V28.4XXA Motorcycle driver injured in noncollision transport accident in traffic accident, initial encounter; Y92.488 Other paved roadways as the place of occurrence of the external cause; Y93.89 Activity, other specified; S01.511A Laceration without foreign body of lip, initial encounter; S03.02XA Dislocation of jaw, left side, initial encounter; S30.811A Abrasion of abdominal wall, initial encounter; S20.319A Abrasion of unspecified front wall of thorax, initial encounter; S40.211A Abrasion of right shoulder, initial encounter; K08.89 Other specified disorders of teeth and supporting structures; S33.4XXA Traumatic rupture of symphysis pubis, initial encounter; S02.5XXA Fracture of tooth (traumatic), initial encounter for closed fracture; S61.411A Laceration without foreign body of right hand, initial encounter; R00.1 Bradycardia, unspecified; S11.91XA Laceration without foreign body of unspecified part of neck, initial encounter; E83.51 Hypocalcemia; Y90.4 Blood alcohol level of 80-99 mg/100 ml; F43.9 Reaction to severe stress, unspecified; R73.9 Hyperglycemia, unspecified; S82.831A Other fracture of upper and lower end of right fibula, initial encounter for closed fracture; R45.1 Restlessness and agitation; F10.10 Alcohol abuse, uncomplicated; I48.91 Unspecified atrial fibrillation; G31.84 Mild cognitive impairment of uncertain or unknown etiology; E86.1 Hypovolemia; I10 Essential (primary) hypertension
CPT/HCPCS: 31600; 36247; 36248; 36430; 36556; 36600; 37244; 49440; 70450; 70486; 71010; 71260; 72125; 72170; 72190; 73090; 73551; 73552; 73590; 73600; 73700; 74000; 74176; 74177; 75710; 75736; 75774; 76000; 76377; 76705; 76937; 80053; 80307; 81001; 82435; 82565; 82805; 82947; 82948; 83605; 83735; 84100; 84132; 84145; 84295; 84484; 84520; 85007; 85014; 85018; 85025; 85027; 85610; 85730; 86850; 86900; 86901; 86920; 87040; 87070; 87205; 87641; 90471; 93005; 93306; 94002; 94003; 94150; 94640; 94664; 96374; 96375; 99152; 99153; 99291; C1713; C1760; C1769; C1887; C1894; C9113; G0390; J0131; J0282; J0360; J0690; J0692; J1040; J1120; J1170; J1580; J1610; J1630; J1644; J1650; J1815; J2250; J2270; J2370; J2405; J2930; J3010; J3370; J3480; J7030; J7050; J7060; J7120; L0172; L1830; P9016; P9035; P9045; Q9967